=== PATIENT | male | born 1935 | race Caucasian/White ===

== ENCOUNTER 2017-08-27 10:28 | Emergency (ER) | payer MEDICARE, OTHER ==
[2017-08-27 11:10] LABS: BASOPHILS % (AUTO) 0.5 %; EOSINOPHILS # (AUTO) 0.1 10^3/uL (0.0-0.7); EOSINOPHILS % (AUTO) 1.6 %; HGB - HEMOGLOBIN 14.4 g/dL (14.0-18.0); LYMPHOCYTES # (AUTO) 1.5 10^3/uL (1.5-3.5); LYMPHOCYTES % (AUTO) 24.1 %; MEAN CORPUSCULAR HEMOGLOBIN 30.7 pg (27.0-31.0); MEAN CORPUSCULAR HGB CONC 34.6 g/dL (32.0-36.0); MEAN CORPUSCULAR VOLUME 88.7 fL (80.0-94.0); MEAN PLATELET VOLUME 8.3 fL (7.4-11.4); MONOCYTES # (AUTO) 0.6 10^3/uL (0.0-1.0); MONOCYTES % (AUTO) 9.5 %; NEUTROPHILS # (AUTO) 4.1 10^3/uL (1.5-6.6); NEUTROPHILS % (AUTO) 64.3 %; PLT - PLATELET COUNT 147 10^3/uL (130-450); RED BLOOD COUNT 4.69 10^6/uL (4.70-6.10); RED CELL DISTRIBUTION WIDTH 13.9 % (12.0-15.0); WHITE BLOOD COUNT 6.4 x10^3/uL (4.8-10.8)
[2017-08-27 11:20] LABS: ALBUMIN 4.5 g/dL (3.2-5.5); ALBUMIN/GLOBULIN RATIO 1.9 (1.0-2.2); ALKALINE PHOSPHATASE 57 IU/L (42-121); ALT ALANINE AMINOTRANSFERASE < 10 IU/L (10-60); AST ASPARTATE AMINOTRANSFERASE 33 IU/L (10-42); BUN - BLOOD UREA NITROGEN 23 mg/dL (6-20); CALCIUM 9.1 mg/dL (8.5-10.3); CARBON DIOXIDE - CO2 22 mmol/L (21-32); CHLORIDE 105 mmol/L (101-111); GFR - MDRD 72 (>89); GLUCOSE 110 mg/dL (70-100); LIPASE 13 U/L (22-51); SODIUM 136 mmol/L (135-145); TOTAL PROTEIN 6.9 g/dL (6.7-8.2)
--- NOTE | 2017-08-27 11:30 | CT Report ---
EXAM: CT HEAD EXAM DATE: 08/27/2017 11:18 AM. CLINICAL HISTORY: Slurred speech. COMPARISON: None. TECHNIQUE: Multiaxial CT images were obtained from the foramen magnum to the vertex. Reformats: Coron al. IV contrast: None. In accordance with CT protocol optimization, one or more of the following dose reduction techniques w ere utilized for this exam: automated exposure control, adjustment of mA and/or KV based on patient s ize, or use of iterative reconstructive technique. FINDINGS: Parenchyma: No intraparenchymal hemorrhage. No evidence of mass, midline shift, or CT findings of acu te infarction. 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 Focal low attenuation right paramedian olimpia 3:10 likely chronic microvascular in etiology. Nance-white differentiation is distinct. Diffuse chronic microangiopathic white matter changes are ev ident. Extraaxial Spaces: Normal for age. No subdural or epidural collections identified. Ventricles: The ventricles and cortical sulci are enlarged, consistent with age-related tissue loss. Sinuses and orbits: Imaged paranasal sinuses, orbits, and mastoids show no significant abnormality. Bones: No evidence of fracture or calvarial defect. Other: None. IMPRESSION: Generalized age-related and chronic vascular changes without evidence of acute intracrani al abnormality. [facility] Referring Provider Line: [phone] SITE ID: [id number]
--- NOTE | 2017-08-27 11:40 | ED Physician Documentation ---
PD HPI ALTERED MENTAL STATUS - Stated complaint Stated Complaint: SLURRED SPEECH - Chief complaint Chief Complaint: Neuro - History obtained from History obtained from: Patient, Family - History of Present Illness Timing - onset: Yesterday Timing - duration: Days (1) Timing - details: Gradual onset, Still present Quality / character: Other (dizziness and slurred speech) Associated symptoms: No: Fever, Headache, Stiff neck, Dyspnea, Cough, NVD, Urinary sx, General weakness, Focal weakness, Seizure activity, Syncope Contributing factors: Other (parkinsons). No: Anticoagulated Basline status: Alert and oriented X 3, Ambulatory, Independent Similar symptoms before: Has not had sx before Recently seen: Not recently seen - Additional information Additional information: 81-year-old male with a history of Parkinson's disease has returned from a vacation to [place] about 3 days ago. He developed some dizziness yesterday and his noted that his speech seemed a little slurred. She expected this to resolve and when she found today that he continued to have this dysarthric speech that she is brought him here to the emergency department. He does not have any lateralizing symptoms he does not feel weak. He does feel that he is having some trouble with his balance. He denies any illness associated with his trip to [place]. Review of Systems Constitutional: denies: Fever, Chills, Myalgias, Fatigue Eyes: denies: Decreased vision Ears: denies: Ear pain Nose: denies: Rhinorrhea / runny nose, Congestion Throat: denies: Sore throat Cardiac: denies: Chest pain / pressure, Palpitations Respiratory: denies: Dyspnea, Cough GI: denies: Abdominal Pain, Nausea, Vomiting : denies: Dysuria, Frequency Skin: denies: Rash Musculoskeletal: denies: Neck pain, Back pain, Extremity pain Neurologic: reports: Difficulty speaking. denies: Generalized weakness, Focal weakness, Numbness, Altered mental status, Headache, Head injury PD PAST MEDICAL HISTORY - Past Medical History Past Medical History: Yes Cardiovascular: None Respiratory: Asthma Neuro: Parkinson's Endocrine/Autoimmune: None GI: None : None HEENT: None Psych: None Musculoskeletal: None Derm: None, Other - Past Surgical History Past Surgical History: Yes General: Colonoscopy Ortho: Knee replacement HEENT: Cataracts - Present Medications Home Medications: Ambulatory Orders Medication Instructions Recorded Confirmed Aspirin 325 mg ORAL DAILY 08/22/14 01/16/15 Calcium Carbonate [Calcium] 500 mg ORAL DAILY 08/22/14 01/16/15 Carbidopa/Levodopa 25/100 [Sinemet 1 each PO QID 08/22/14 01/16/15 25 mg/100 mg] Pramipexole Di-HCl [Mirapex] 0.5 mg PO TID 08/22/14 01/16/15 Vit D3-Vit K/Berberine/Hops 2,000 tab ORAL DAILY 08/22/14 01/16/15 [Ostera Tablet] - Allergies Allergies/Adverse Reactions: Allergies Allergy/AdvReac Type Severity Reaction Status Date / Time No Known Drug Allergies Allergy Verified 08/27/17 10:43 - Social History Does the pt smoke?: No Smoking Status: Never smoker Does the pt have substance abuse?: No PD ED PE NORMAL - Vitals Vital signs reviewed: Yes (Hypertensive mild) - General General: Alert and oriented X 3, No acute distress, Well developed/nourished, Other - HEENT HEENT: Atraumatic, PERRL, EOMI, Ears normal, Other (Dry mucous membranes upper and lower plates) - Neck Neck: Supple, no meningeal sign, No bony TTP - Cardiac Cardiac: RRR, No murmur - Respiratory Respiratory: No respiratory distress, Clear bilaterally - Abdomen Abdomen: Soft, Non tender - Back Back: No CVA TTP, No spinal TTP - Derm Derm: Normal color, Warm and dry, No rash - Extremities Extremities: No deformity, No edema - Neuro Neuro: Alert and oriented X 3, 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, No motor deficit, No sensory deficit, Other (The speech is mildly dysarthric there is not word salad or word searching present.) Eye Opening: Spontaneous Motor: Obeys Commands Verbal: Oriented GCS Score: 15 - Psych Psych: Normal mood, Normal affect Results - Vitals Vitals: Vital Signs - 24 hr 08/27/17 08/27/17 08/27/17 10:36 11:30 12:00 Temperature 36.9 C Heart Rate 62 55 L 53 L Respiratory 16 16 18 Rate Blood Pressure 143/84 H 134/74 H 139/87 H O2 Saturation 95 97 97 08/27/17 08/27/17 08/27/17 12:30 13:02 13:45 Temperature Heart Rate 54 L 52 L 68 Respiratory 16 16 18 Rate Blood Pressure 156/73 H 159/80 H 175/77 H O2 Saturation 99 98 99 Oxygen O2 Source Room air - EKG (time done) 1040 Rate: Rate (enter#) (62) Rhythm: NSR QRS: LVH Ischemia: Q waves Compare to prior EKG: Old EKG unavailable Computer interpretation: Agree with computer - Labs Labs: Laboratory Tests 08/27/17 08/27/17 08/27/17 10:48 10:48 10:48 WBC 6.4 RBC 4.69 L Hgb 14.4 Hct 41.6 L MCV 88.7 MCH 30.7 MCHC 34.6 RDW 13.9 Plt Count 147 MPV 8.3 Neut # 4.1 Lymph # 1.5 Dickens # 0.6 Eos # 0.1 Baso # 0.0 Absolute Nucleated RBC 0.00 Nucleated RBC % 0.0 Sodium 136 Potassium 3.5 Chloride 105 Carbon Dioxide 22 Anion Gap 9.0 BUN 23 H Creatinine 1.0 Estimated GFR (MDRD) 72 L Glucose 110 H Calcium 9.1 Total Bilirubin 2.0 H AST 33 ALT < 10 L Alkaline Phosphatase 57 Troponin I < 0.04 Total Protein 6.9 Albumin 4.5 Globulin 2.4 Albumin/Globulin Ratio 1.9 Lipase 13 L - Rads (name of study) CT head without Radiology: Prelim report reviewed (Impression: Generalized age-related and chronic vascular changes without evidence of acute intracranial abnormality.), EMP read indepedently, See rad report Procedures - IVC sono (time) 1010 Bedside IVC sono: IVC measures (cm) (0.78), IVC collapsed c insp (cm) (complete) , Significant dehydration (est 3 liter deficit) 1340 Bedside IVC sono: IVC measures (cm) (1.2), IVC collapsed c insp (cm) (complete) , Dehydration (est 1liter deficit) PD MEDICAL DECISION MAKING - ED course Complexity details: reviewed old records, reviewed results, re-evaluated patient , considered differential, d/w patient, d/w family ED course: 81-year-old male history of Parkinson's is found to be significantly and symptomatically dehydrated and IV hydration is begun. He does have some mild dysarthric speech and I suspect this is related. He does not have any lateralizing findings otherwise. He is hydrated with 1 L of saline feels much improved and would like to go home. His inferior vena cava is interrogated again and he has marked improvement in his numbers now suggest a 1 L deficit. I have asked him to hydrate with an additional liter of Gatorade G2 today. His notes that his speech does seem to be almost back to normal. He will follow-up with his neurologist as previously planned next week. Departure - Departure Disposition: 01 Home, Self Care Clinical Impression: Dehydration Condition: Stable Instructions: ED Dehydration Follow-Up: COOPER FERNANDEZ [Primary Care Provider] - Discharge Date/Time: 08/27/17 13:55
[2017-08-27] MEDS ORDERED: SODIUM CHLORIDE 0.9% 1,000 ML IV ONE (12:11)
[2017-08-27 14:22] VITALS: BP 175/77
== END 2017-08-27 13:55 | disposition home or self-care (01) ==
LOC: ED 10:28
DX: E86.0 Dehydration (principal); G20 Parkinson's disease; J45.909 Unspecified asthma, uncomplicated; Z79.82 Long term (current) use of aspirin
CPT/HCPCS: 36415; 70450; 80053; 83690; 84484; 85025; 93005; 99284

== ENCOUNTER 2020-02-13 12:44 | Emergency (ER) | payer MEDICARE, OTHER ==
--- NOTE | 2020-02-13 13:33 | XRAY Report ---
PROCEDURE: Chest 1 View X-Ray INDICATIONS: Chest Pain TECHNIQUE: One view of the chest was acquired. COMPARISON: None. FINDINGS: Surgical changes and devices: None. Lungs and pleura: No pleural effusions or pneumothorax. Lungs are clear. Mediastinum: Mediastinal contours appear normal. Heart size is normal. Bones and chest wall: No suspicious bony lesions. Overlying soft tissues appear unremarkable. IMPRESSION: Chest without acute cardiopulmonary abnormalities. No focal airspace disease. No findings identified to explain patient's chest pain. Reviewed by: Phillip Espino MD on 02/13/2020 1:32 PM PDT Approved by: Phillip Espino MD on 02/13/2020 1:32 PM PDT Station ID: [id number]
[2020-02-13 13:39] LABS: BASOPHILS % (AUTO) 0.5 %; EOSINOPHILS # (AUTO) 0.1 10^3/uL (0.0-0.7); EOSINOPHILS % (AUTO) 0.8 %; HGB - HEMOGLOBIN 14.6 g/dL (14.0-18.0); LYMPHOCYTES # (AUTO) 1.3 10^3/uL (1.5-3.5); LYMPHOCYTES % (AUTO) 19.2 %; MEAN CORPUSCULAR HEMOGLOBIN 31.5 pg (27.0-31.0); MEAN CORPUSCULAR HGB CONC 34.5 g/dL (32.0-36.0); MEAN CORPUSCULAR VOLUME 91.4 fL (80.0-94.0); MEAN PLATELET VOLUME 9.8 fL (7.4-11.4); MONOCYTES # (AUTO) 0.5 10^3/uL (0.0-1.0); MONOCYTES % (AUTO) 7.1 %; NEUTROPHILS # (AUTO) 4.8 10^3/uL (1.5-6.6); NEUTROPHILS % (AUTO) 72.1 %; PLT - PLATELET COUNT 145 10^3/uL (130-450); RED BLOOD COUNT 4.63 10^6/uL (4.70-6.10); RED CELL DISTRIBUTION WIDTH 12.8 % (12.0-15.0); WHITE BLOOD COUNT 6.6 x10^3/uL (4.8-10.8)
--- NOTE | 2020-02-13 13:48 | ED Physician Documentation ---
History of Present Illness - Stated complaint Stated Complaint: DIZZY, UPSET STOMACH - Chief complaint Chief Complaint: Neuro - History obtained from History obtained from: Patient, Family - Additonal information Additional information: 84-year-old male presents to the emergency department for evaluation of dizziness and nausea. He reports that this morning when he woke up and sat up in bed he began to feel dizzy. The dizziness has persisted anytime he looks up moving objects and was especially worse when he laid supine. he is able to make the sensation go away if he fixates on an object. He denies that he has ever had similar. He denies any headache focal weakness slurred speech or droopy face. He denies any diplopia, tinnitus or cough, cold or congestion denies any syncope. he did work outside in the year yesterday He does have a history of Parkinson's disorder. He is able to walk with a mildly shuffled gait but does not use any assistive devices. He has not had any falls or trauma. He does not take anticoagulation. He denies chest pain or dyspnea, no abdominal pain, dysuria, urgency, or frequency. He denies any previous history of LA or CVA/TIA Review of Systems Constitutional: denies: Fever, Chills Eyes: reports: Other (wears corrective lenses). denies: Loss of vision, Decreased vision, Photophobia, Discharge Nose: denies: Congestion, Epistaxis Cardiac: reports: Chest pain / pressure, Palpitations Respiratory: denies: Dyspnea, Cough GI: denies: Abdominal Pain, Abdominal Swelling, Constipation, Diarrhea, Hematemesis, Bloody / black stool : denies: Dysuria, Frequency, Hesitancy, Unable to Void Skin: denies: Rash, Lesions Musculoskeletal: denies: Neck pain, Back pain Neurologic: reports: Other (parkinsons; mild tremor; shuffled gait). denies: Generalized weakness, Focal weakness, Numbness, Difficulty speaking, Near syncope, Syncope, Seizure, Confused Psychiatric: denies: Depressed, Suicidal PD PAST MEDICAL HISTORY - Past Medical History Cardiovascular: None Respiratory: Asthma Neuro: Parkinson's Endocrine/Autoimmune: None GI: None : None HEENT: None Psych: None Musculoskeletal: None Derm: None, Other - Past Surgical History Past Surgical History: Yes General: Colonoscopy Ortho: Knee replacement HEENT: Cataracts - Present Medications Home Medications: Ambulatory Orders Medication Instructions Recorded Confirmed Calcium Carbonate [Calcium] 500 mg ORAL DAILY 08/22/14 02/13/20 Carbidopa/Levodopa 25/100 [Sinemet 1 each PO QID 08/22/14 02/13/20 25 mg/100 mg] Vit D3-Vit K/Berberine/Hops 2,000 tab ORAL DAILY 08/22/14 02/13/20 [Ostera Tablet] Fluticasone [Flonase] 2 sprays JOHN DAILY 02/13/20 02/13/20 Magnesium Oxide 500 mg PO DAILY 02/13/20 02/13/20 Meclizine [Antivert] 25 mg PO BID PRN #30 tablet 02/13/20 Pramipexole Di-HCl [Pramipexole ER] 1 tab ORAL DAILY PM 02/13/20 02/13/20 - Allergies Allergies/Adverse Reactions: Allergies Allergy/AdvReac Type Severity Reaction Status Date / Time No Known Drug Allergies Allergy Verified 02/13/20 13:21 - Social History Does the pt smoke?: No Smoking Status: Never smoker Does the pt have substance abuse?: No PD ED PE EXPANDED - General General: Alert, No acute distress, Well developed/nourished - HEENT HEENT: Atraumatic, PERRL, Other (mild lateral nystagmus with extreme right head turn). No: Head injury, Swollen tonsils - Eyes Eyes: PERRL, Normal accommodation, EOMI - Neck Neck: Supple w/out meningeal sx. No: Adenopathy - Cardiac Cardiac: Regular Rate, Regular Rhythm, Radial strong equal, Femoral strong equal, Pedal strong equal, Cap refill < 2 sec, Prolonged cap refill. No: Murmur Present - Respiratory Respiratory: Clear to ausultation marisol. No: Distress, Labored - Abdomen Abdomen: Normal Bowel sounds. No: Tender to palpation - Extremities Extremities: Normal. No: Deformity, Tenderness - Neuro Neuro: Alert and Oriented X 3, Normal Sensation, Normal Speech, CNII-XII intact, Nystagmus, Normal finger nose, Normal speech, Other (+ barbi tolentino pike rith nystagmus and dizziness noted with head turn to the right; mild nustagmus when returns to sitting position). No: Normal gait (parkinsons; shuffled gait) - GCS Eye Opening: Spontaneous Motor: Obeys Commands Verbal: Oriented Total: 15 Results - Vitals Vitals: Vital Signs - 24 hr 02/13/20 02/13/20 13:20 13:40 Temperature 36.6 C Heart Rate 68 67 Respiratory 18 20 Rate Blood Pressure 164/77 H 139/79 H O2 Saturation 98 98 Oxygen O2 Source Room air - Labs Labs: Laboratory Tests 02/13/20 02/13/20 02/13/20 13:32 13:32 13:32 WBC 6.6 RBC 4.63 L Hgb 14.6 Hct 42.3 MCV 91.4 MCH 31.5 H MCHC 34.5 RDW 12.8 Plt Count 145 MPV 9.8 Neut # (Auto) 4.8 Lymph # (Auto) 1.3 L Lake # (Auto) 0.5 Eos # (Auto) 0.1 Baso # (Auto) 0.0 Absolute Nucleated RBC 0.00 Nucleated RBC % 0.0 Sodium 136 Potassium 3.7 Chloride 101 Carbon Dioxide 26 Anion Gap 9.0 BUN 21 H Creatinine 1.0 Estimated GFR (MDRD) 71 L Glucose 129 H Calcium 9.2 Total Bilirubin 1.6 H AST 25 ALT < 10 L Alkaline Phosphatase 60 Troponin I High Sens 4.6 Total Protein 7.0 Albumin 4.4 Globulin 2.6 Albumin/Globulin Ratio 1.7 Lipase 22 Urine Color Urine Clarity Urine pH Ur Specific [place] Urine Protein Urine Glucose (UA) Urine Ketones Urine Occult Blood Urine Nitrite Urine Bilirubin Urine Urobilinogen Ur Leukocyte Esterase Ur Microscopic Review Urine Culture Comments 02/13/20 13:55 WBC RBC Hgb Hct MCV MCH MCHC RDW Plt Count MPV Neut # (Auto) Lymph # (Auto) Lake # (Auto) Eos # (Auto) Baso # (Auto) Absolute Nucleated RBC Nucleated RBC % Sodium Potassium Chloride Carbon Dioxide Anion Gap BUN Creatinine Estimated GFR (MDRD) Glucose Calcium Total Bilirubin AST ALT Alkaline Phosphatase Troponin I High Sens Total Protein Albumin Globulin Albumin/Globulin Ratio Lipase Urine Color YELLOW Urine Clarity CLEAR Urine pH 6.0 Ur Specific [place] 1.020 Urine Protein NEGATIVE Urine Glucose (UA) NEGATIVE Urine Ketones NEGATIVE Urine Occult Blood NEGATIVE Urine Nitrite NEGATIVE Urine Bilirubin NEGATIVE Urine Urobilinogen 0.2 (NORMAL) Ur Leukocyte Esterase NEGATIVE Ur Microscopic Review NOT INDICATED Urine Culture Comments NOT INDICATED PD MEDICAL DECISION MAKING - ED course Complexity details: reviewed old records, reviewed results, re-evaluated patient, d/w patient, d/w family ED course: 84-year-old male presented to the emergency department with chief complaint of vertigo and nausea that he noted this morning when he arose from bed. His vertigo was worse when he laid supine or turned his head. On exam he did have a positive Barbi-Hallpike especially with positioning on the right side with lateral nystagmus noted. Patient was given meclizine and 1 L of IV fluids in the emergency department did have good relief of his symptoms. I was no longer able to induce the vertigo with repeat barbi tolentino pike following meclizine and fluids. His cerebellar exam was normal otherwise taking into account prakinsons and shuffled gait. My suspicion for central etiology for vertigo is low. He had no focal neuro deficits ECG is non ischemic. negative troponin. no c/o chest pain or dyspnea. No syncope labs showed mild BUN elevation likely dehydrated attributed to working outside yeterday. improved following IVF UA showed no signs of infection discussed that likely etiology of vertigo is mild dehydration and peripheral mohinder ology. advised to do the summer maneuver at home. Encouraged to drink 1 liter of gatorade G2. advised close f/u with pcp. Return to the ED for focal weakness, slurred speech, altered gait or any syncope/chest pain Departure - Departure Disposition: 01 Home, Self Care Clinical Impression: Vertigo, Dehydration symptoms Condition: Stable Record reviewed to determine appropriate education?: Yes Instructions: Vertigo Paroxysmal Positional Follow-Up: MERCEDES BRYANT MD [Primary Care Provider] - Prescriptions: Meclizine [Antivert] 25 mg PO BID PRN #30 tablet PRN Reason: dizzy Comments: Kris, I think the cause of your dizziness is most likely mild dehydration and loose crystals in your inner ear. Yoru EKG, CXR, urine, and labs look okay otherwise. Please practice the head positioning at home as show to you in the ED today. This will help reposition the loose crystals in your ears. You are a little dehydrated therefore I would like you to increase your intake of water and fluids at home. Mild dehydration can certainly contribute to dizziness. If at any point you find to the you have slurred speech feel that he cannot speak or walk normally or feel that your symptoms are not well managed and please return to the emergency department for a second look
[2020-02-13 13:52] LABS: ALBUMIN 4.4 g/dL (3.2-5.5); ALBUMIN/GLOBULIN RATIO 1.7 (1.0-2.2); ALKALINE PHOSPHATASE 60 IU/L (42-121); ALT ALANINE AMINOTRANSFERASE < 10 IU/L (10-60); AST ASPARTATE AMINOTRANSFERASE 25 IU/L (10-42); BILIRUBIN,TOTAL 1.6 mg/dL (0.2-1.0); BUN - BLOOD UREA NITROGEN 21 mg/dL (6-20); CALCIUM 9.2 mg/dL (8.5-10.3); CARBON DIOXIDE - CO2 26 mmol/L (21-32); CHLORIDE 101 mmol/L (101-111); GLUCOSE 129 mg/dL (70-100); LIPASE 22 U/L (22-51); SODIUM 136 mmol/L (135-145)
[2020-02-13] MEDS: MECLIZINE 12.5 MG TABLET PO STA (13:56)
[2020-02-13] MEDS: SODIUM CHLORIDE 0.9% 1,000 ML IV STA (13:56)
[2020-02-13 14:04] LABS: BILIRUBIN,URINE NEGATIVE (NEGATIVE); GLUCOSE, URINE (UA) NEGATIVE (NEGATIVE); KETONES,URINE (UA) NEGATIVE (NEGATIVE); LEUKOCYTE ESTERASE, URINE NEGATIVE (NEGATIVE); NITRITE,URINE NEGATIVE (NEGATIVE); OCCULT BLOOD,URINE NEGATIVE (NEGATIVE); PROTEIN,URINE NEGATIVE (NEGATIVE); UROBILINOGEN,URINE 0.2 (NORMAL) E.U./dL (NORMAL)
[2020-02-13 14:11] LABS: CLARITY,URINE CLEAR (CLEAR)
[2020-02-13 15:00] VITALS: BP 162/73
== END 2020-02-13 15:18 | disposition home or self-care (01) ==
LOC: ED 12:44
DX: R42 Dizziness and giddiness (principal); E86.0 Dehydration; R11.0 Nausea; G20 Parkinson's disease
CPT/HCPCS: 36415; 71045; 80053; 81003; 83690; 84484; 85025; 93005; 96360; 99284; A9270; 81001; 87086

== ENCOUNTER 2021-11-01 20:08 | Emergency (ER) | payer MEDICARE, OTHER ==
--- NOTE | 2021-11-01 21:29 | ED Physician Documentation ---
PD HPI BACK PAIN - Stated complaint Stated Complaint: FALL/BACK PAIN - Chief complaint Chief Complaint: Trauma Ch/Bk - History obtained from History obtained from: Patient - History of Present Illness Timing - onset: Enter time (18:30), Today Timing - details: Abrupt onset Pain level now: 5 Location: Lower Quality: Pain Contributing factors: No: Anticoagulated Similar symptoms before: Has not had sx before Recently seen: Not recently seen - Additional information Additional information: patient slipped and fell in the shower tonight, "landed on my butt" (per patient), c/o sudden onset low back pain "across middle of my back". Denies head injury, denies LOC. Review of Systems Cardiac: reports: Reviewed and negative Respiratory: reports: Reviewed and negative GI: reports: Reviewed and negative Skin: reports: Reviewed and negative Musculoskeletal: reports: Back pain. denies: Neck pain, Joint pain, Joint swelling Neurologic: denies: Generalized weakness, Focal weakness, Numbness, Confused, Altered mental status, Headache, Head injury, LOC PD PAST MEDICAL HISTORY - Past Medical History Past Medical History: Yes Cardiovascular: None Respiratory: Asthma Neuro: Parkinson's Endocrine/Autoimmune: None GI: None : None HEENT: None Psych: None Musculoskeletal: None Derm: None, Other - Past Surgical History Past Surgical History: Yes General: Colonoscopy Ortho: Knee replacement HEENT: Cataracts - Present Medications Home Medications: Ambulatory Orders Medication Instructions Recorded Confirmed Calcium Carbonate [Calcium] 500 mg ORAL DAILY 08/22/14 11/01/21 Carbidopa/Levodopa 25/100 [Sinemet 1 each PO QID 08/22/14 11/01/21 25 mg/100 mg] Vit D3-Vit K/Berberine/Hops 2,000 tab ORAL DAILY 08/22/14 11/01/21 [Ostera Tablet] Fluticasone [Flonase] 2 sprays JOHN DAILY 02/13/20 11/01/21 Magnesium Oxide 500 mg PO DAILY 02/13/20 11/01/21 Meclizine [Antivert] 25 mg PO BID PRN #30 tablet 02/13/20 11/01/21 Pramipexole Di-HCl [Pramipexole ER] 1 tab ORAL DAILY PM 02/13/20 11/01/21 Rivastigmine Tartrate 1 cap PO QID 11/01/21 11/01/21 [Rivastigmine] - Allergies Allergies/Adverse Reactions: Allergies Allergy/AdvReac Type Severity Reaction Status Date / Time No Known Drug Allergies Allergy Verified 11/01/21 20:12 - Social History Does the pt smoke?: No Smoking Status: Never smoker Does the pt drink ETOH?: Yes Does the pt have substance abuse?: No - Immunizations Immunizations are current?: Yes - POLST Patient has POLST: No PD ED PE NORMAL - Vitals Vital signs reviewed: Yes - Cardiac Cardiac: RRR, No murmur - Abdomen Abdomen: Soft, Non tender - Back Back: Other (mild TTP across mid/lower lumbar region without crepitus or palpable/visible deformity) - Extremities Extremities: No edema - Neuro Neuro: Alert and oriented X 3, 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 There is a T12 compression with 30% loss of height on the lumbar xrays. He has pain and tenderness in this area but no neurologic c/o nor findings (such as leg weakness, numbness), and is able to slowly ambulate without assistance. Given PO tylenol for pain; does not appear to be in obvious painful distress to the point of warranting narcotic/opiate analgesia, and such medication would also carry risk of unsteadiness in this age group which could lead to subsequent fall(s) and worse injury. Departure - Departure Disposition: 01 Home, Self Care Clinical Impression: T12 compression fracture Qualifiers: Encounter type: initial encounter Qualified Code(s): S22.080A - Wedge compression fracture of T11-T12 vertebra, initial encounter for closed fracture Fall Qualifiers: Encounter type: initial encounter Qualified Code(s): W19.XXXA - Unspecified fall, initial encounter Condition: Good Instructions: ED Fx Comp Vertebral Follow-Up: MERCEDES BRYANT MD [Primary Care Provider] - Comments: As we discussed, there are no apparent fractures on the pelvis xray. Your lower back xrays show a fracture of T12 (your twelfth thoracic vertebra of your back); this might have been caused by the fall today, but without previous xrays or CT to compare to (none available on my computer here), it cannot be determined whether this might have been present before today (in other words, the finding might be from a previous injury and unrelated to today's fall). Follow up with your primary care provider within 1 week for reevaluation. Discharge Date/Time: 11/02/21 00:08
[2021-11-01] MEDS ORDERED: ACETAMINOPHEN 325 MG TABLET PO STA (21:42)
--- NOTE | 2021-11-01 23:00 | XRAY Report ---
PROCEDURE: Pelvis 1 View INDICATIONS: fall, low back pain TECHNIQUE: 1 view(s) of the pelvis acquired. COMPARISON: Correlation is made with the accompanying lumbar radiograph, 11/01/2021 FINDINGS: Bones: No fractures or dislocations. No suspicious bony lesions. Degenerative changes are seen, in cluding involving the visualized lower lumbar spine. Soft tissues: Visualized bowel gas pattern is normal. No suspicious soft tissue calcifications. IMPRESSION: No displaced fracture can be seen on this single view of the pelvis. Please correlate with focal tenderness. If there is point tenderness (or other clinical concern for a fracture not seen on these plain films) then please consider a dedicated CT study or a short term fo llow up plain film series for further evaluation. Reviewed by: Raf Ulloa MD on 11/01/2021 9:59 PM MARINA Approved by: Raf Ulloa MD on 11/01/2021 9:59 PM MARINA Station ID: [id number]
--- NOTE | 2021-11-01 23:03 | XRAY Report ---
PROCEDURE: Lumbar Spine 2 View INDICATIONS: fall, low back pain TECHNIQUE: 2 views of the lumbar spine were acquired. COMPARISON: Correlation is made with the accompanying pelvis plain film, 11/01/2021 FINDINGS: Bones: 5 [id number] vertebrae are present. Mild dextroconvex scoliotic curvature is seen. No significant AP alignment abnormality can be seen. There is a T12 fracture seen involving the superior endplate, with approximately 30% loss of height. There is mild disc space narrowing seen at L3-L4, with moderate disc space narrowing at L4-5 and L5-S 1. Facet arthropathy is seen, which is most prominent inferiorly. No suspicious bony lesions. Soft tissues: Overlying bowel gas pattern is normal. No suspicious soft tissue calcifications. Ath erosclerotic calcification is seen. IMPRESSION: T12 fracture, with 30% loss of height. Please correlate with focal tenderness. If it would be helpful for clinical management decision making, please consider a dedicated CT throug h the region for further evaluation. Lumbar spine degenerative changes are seen, which are worst inferiorly. Reviewed by: Raf Ulloa MD on 11/01/2021 10:01 PM MARINA Approved by: Raf Ulloa MD on 11/01/2021 10:01 PM MARINA Station ID: [id number]
[2021-11-02 00:09] VITALS: BP 184/78
== END 2021-11-02 00:08 | disposition home or self-care (01) ==
LOC: ED 20:08
DX: S22.080A Wedge compression fracture of T11-T12 vertebra, initial encounter for closed fracture (principal); W18.2XXA Fall in (into) shower or empty bathtub, initial encounter; Y93.F1 Activity, caregiving, bathing
CPT/HCPCS: 72100; 72170; 99282; 99283; A9270

== ENCOUNTER 2022-02-22 11:21 | Emergency (ER) | payer MEDICARE, OTHER ==
[2022-02-22 11:32] VITALS: BP 143/61
--- NOTE | 2022-02-22 11:55 | XRAY Report ---
PROCEDURE: Elbow 3 View RT INDICATIONS: Trauma TECHNIQUE: 3 views of the elbow were acquired. COMPARISON: None. FINDINGS: Bones: No acute fractures or dislocations. No suspicious bony lesions. Soft tissues: No elbow joint effusion. No suspicious soft tissue calcifications. IMPRESSION: No acute osseous abnormality. If there is clinical concern or persistent symptoms, additional imaging such as repeat radiographs or advanced imaging (e.g. CT, MRI) may be helpful for further evaluation. Reviewed by: Sergio Rees MD on 02/22/2022 10:54 AM MARINA Approved by: Sergio Rees MD on 02/22/2022 10:54 AM MARINA Station ID: [id number]
--- NOTE | 2022-02-22 12:30 | ED Physician Documentation ---
PD HPI UPPER EXT INJURY - Stated complaint Stated Complaint: R ELBOW LAC - Chief complaint Chief Complaint: Laceration - History obtained from History obtained from: Patient, Family - Additonal information Additional information: 86-year-old gentleman presents with his for the evaluation of a skin tear on the right elbow that has had persistent bleeding. 3 nights ago he was walking too fast and hit his elbow on a door jam and he has a skin tear on his right elbow. He also loosened the nail of the left fourth finger. Anytime he moves the right elbow it bleeds. He is up-to-date on tetanus. Review of Systems Constitutional: reports: Reviewed and negative Eyes: reports: Reviewed and negative Ears: reports: Reviewed and negative Nose: reports: Reviewed and negative PD PAST MEDICAL HISTORY - Past Medical History Cardiovascular: None Respiratory: Asthma Neuro: Parkinson's Endocrine/Autoimmune: None GI: None : None HEENT: None Psych: None Musculoskeletal: None Derm: None, Other - Past Surgical History Past Surgical History: Yes General: Colonoscopy Ortho: Knee replacement HEENT: Cataracts - Present Medications Home Medications: Ambulatory Orders Medication Instructions Recorded Confirmed Calcium Carbonate [Calcium] 500 mg ORAL DAILY 08/22/14 11/01/21 Carbidopa/Levodopa 25/100 [Sinemet 1 each PO QID 08/22/14 11/01/21 25 mg/100 mg] Vit D3-Vit K/Berberine/Hops 2,000 tab ORAL DAILY 08/22/14 11/01/21 [Ostera Tablet] Fluticasone [Flonase] 2 sprays JOHN DAILY 02/13/20 11/01/21 Magnesium Oxide 500 mg PO DAILY 02/13/20 11/01/21 Meclizine [Antivert] 25 mg PO BID PRN #30 tablet 02/13/20 11/01/21 Pramipexole Di-HCl [Pramipexole ER] 1 tab ORAL DAILY PM 02/13/20 11/01/21 Rivastigmine Tartrate 1 cap PO QID 11/01/21 11/01/21 [Rivastigmine] - Allergies Allergies/Adverse Reactions: Allergies Allergy/AdvReac Type Severity Reaction Status Date / Time adhesive Allergy Rash Verified 02/22/22 11:32 - Social History Does the pt smoke?: No Smoking Status: Never smoker Does the pt drink ETOH?: Yes Does the pt have substance abuse?: No - Immunizations Immunizations are current?: Yes - POLST Patient has POLST: No PD ED PE NORMAL - Vitals Vital signs reviewed: Yes - General General: Alert and oriented X 3, No acute distress - HEENT HEENT: PERRL, EOMI - Neck Neck: Supple, no meningeal sign, No bony TTP - Extremities Extremities: Other (There is no tenderness of the right elbow. There is a large but shallow skin tear measuring about 3 cm with some heaped up skin at the edge that is nonviable. The left fourth finger has a slightly loose nail but no bony tenderness.) - Neuro Neuro: Alert and oriented X 3, Normal speech Results - Vitals Vitals: Vital Signs - 24 hr 02/22/22 11:27 Temperature 36.0 C L Heart Rate 62 Respiratory 20 Rate Blood Pressure 143/61 H O2 Saturation 98 Oxygen O2 Source Room air - Rads (name of study) Three-view x-ray right elbow Radiology: EMP read contemporaneously (Normal) Procedures - Laceration (location) Right elbow Length in cm: 3 Wound type: Superficial Wound preparation: Irrigated copiously NS, Debrided moderately (There was heaped up skin at the edge that was devitalized and debrided sharply.) Skin layer closure: Dermabond Other: Patient tolerated well, No complications, Neurovascular intact, Tetanus UTD Departure - Departure Disposition: 01 Home, Self Care Clinical Impression: Skin tear of elbow without complication Qualifiers: Encounter type: initial encounter Laterality: right Qualified Code(s): S51.011A - Laceration without foreign body of right elbow, initial encounter Condition: Good Record reviewed to determine appropriate education?: Yes Instructions: ED Laceration Ext Skin Glue Comments: You can keep the current dressing on for a day. After that you can wash with soap and water and just leave it open to air. Return for new or worsening symptoms. Follow-up with your doctor in a week for wound check.
== END 2022-02-22 12:37 | disposition home or self-care (01) ==
LOC: ED 11:21
DX: S51.011A Laceration without foreign body of right elbow, initial encounter (principal); W22.09XA Striking against other stationary object, initial encounter; Y93.01 Activity, walking, marching and hiking; Y92.009 Unspecified place in unspecified non-institutional (private) residence as the place of occurrence of the external cause
CPT/HCPCS: 12002; 99283

== ENCOUNTER 2023-07-01 15:42 | Outpatient (CLI) | payer MEDICARE, OTHER | END 2023-07-01 23:59 | disposition short-term general hospital (02) | LOC: EMS 15:42 | DX: R41.0 Disorientation, unspecified (principal); R35.0 Frequency of micturition; R32 Unspecified urinary incontinence | CPT/HCPCS: A0425; A0429 ==

== ENCOUNTER 2023-08-31 17:57 | Outpatient (CLI) | payer MEDICARE, OTHER | END 2023-08-31 23:59 | disposition EMS.NT | LOC: EMS 17:57 | DX: Z03.89 Encounter for observation for other suspected diseases and conditions ruled out (principal) ==

== ENCOUNTER 2023-09-01 12:34 | Emergency (ER) | payer MEDICARE, OTHER ==
[2023-09-01 13:09] LABS: BASOPHILS % (AUTO) 0.3 %; EOSINOPHILS # (AUTO) 0.2 10^3/uL (0.0-0.7); EOSINOPHILS % (AUTO) 2.6 %; HCT - HEMATOCRIT 40.3 % (42.0-52.0); LYMPHOCYTES # (AUTO) 1.3 10^3/uL (1.5-3.5); LYMPHOCYTES % (AUTO) 20.1 %; MEAN CORPUSCULAR HGB CONC 32.3 g/dL (32.0-36.0); MEAN CORPUSCULAR VOLUME 92.9 fL (80.0-94.0); MEAN PLATELET VOLUME 10.4 fL (7.4-11.4); MONOCYTES # (AUTO) 0.5 10^3/uL (0.0-1.0); MONOCYTES % (AUTO) 7.7 %; NEUTROPHILS # (AUTO) 4.3 10^3/uL (1.5-6.6); NEUTROPHILS % (AUTO) 69.1 %; PLT - PLATELET COUNT 139 10^3/uL (130-450); RED BLOOD COUNT 4.34 10^6/uL (4.70-6.10); RED CELL DISTRIBUTION WIDTH 13.2 % (12.0-15.0); WHITE BLOOD COUNT 6.2 x10^3/uL (4.8-10.8)
[2023-09-01 13:22] LABS: ALBUMIN 4.3 g/dL (3.2-5.5); ALBUMIN/GLOBULIN RATIO 2.2 (1.0-2.2); BILIRUBIN,TOTAL 2.7 mg/dL (0.2-1.0); CALCIUM 9.4 mg/dL (8.5-10.3); MAGNESIUM 1.9 mg/dL (1.7-2.3); POTASSIUM 3.9 mmol/L (3.5-4.5); TOTAL PROTEIN 6.3 g/dL (6.4-8.9)
--- NOTE | 2023-09-01 13:44 | ED Physician Documentation ---
PD HPI SYNCOPE - Stated complaint Stated Complaint: FALLING - Chief complaint Chief Complaint: Neuro - Additional information Additional information: 87-year-old male very poor historian with history of Parkinson's and known memory loss presents emergency department with his for 2 episodes of syncope happening yesterday. Patient says he is not sure what happened his handed him a piece of bread and then he said he ended up on the floor. He is unable to tell me if he hit his head or not and so is his . He said that he tried to call his primary care provider today to get in with them further evaluation of this but he was unable to do so they told him to come to the emergency department. He denies any chest pain any shortness of breath he says that this has happened to him in the past but he is unable to provide any additional history other than that. PD PAST MEDICAL HISTORY - Past Medical History Past Medical History: Yes Cardiovascular: None Respiratory: Asthma Neuro: Parkinson's Endocrine/Autoimmune: None GI: None : None HEENT: None Psych: None Musculoskeletal: None Derm: None, Other - Past Surgical History Past Surgical History: Yes General: Colonoscopy Ortho: Knee replacement HEENT: Cataracts - Present Medications Home Medications: Ambulatory Orders Medication Instructions Recorded Confirmed Calcium Carbonate [Calcium] 500 mg ORAL DAILY 08/22/14 11/01/21 Carbidopa/Levodopa 25/100 [Sinemet 1 each PO QID 08/22/14 11/01/21 25 mg/100 mg] Vit D3-Vit K/Berberine/Hops 2,000 tab ORAL DAILY 08/22/14 11/01/21 [Ostera Tablet] Fluticasone [Flonase] 2 sprays JOHN DAILY 02/13/20 11/01/21 Magnesium Oxide 500 mg PO DAILY 02/13/20 11/01/21 Meclizine [Antivert] 25 mg PO BID PRN #30 tablet 02/13/20 11/01/21 Pramipexole Di-HCl [Pramipexole ER] 1 tab ORAL DAILY PM 02/13/20 11/01/21 Rivastigmine Tartrate 1 cap PO QID 11/01/21 11/01/21 [Rivastigmine] Clopidogrel [Plavix] 75 mg PO DAILY 09/01/23 - Allergies Allergies/Adverse Reactions: Allergies Allergy/AdvReac Type Severity Reaction Status Date / Time adhesive Allergy Rash Verified 09/01/23 12:54 - Social History Does the pt smoke?: No Smoking Status: Never smoker Does the pt drink ETOH?: Yes Does the pt have substance abuse?: No - Immunizations Immunizations are current?: Yes - POLST Patient has POLST: No PD ED PE NORMAL - Vitals Vital signs reviewed: Yes - General General: Alert and oriented X 3, No acute distress, Well developed/nourished - HEENT HEENT: Atraumatic, PERRL, EOMI - Neck Neck: No JVD - Cardiac Cardiac: RRR, No murmur, No gallop, Strong equal pulses - Respiratory Respiratory: No respiratory distress, Clear bilaterally - Abdomen Abdomen: Normal bowel sounds, Soft, Non tender, No organomegaly - Derm Derm: Normal color, Warm and dry, No rash - Extremities Extremities: No edema - Neuro Neuro: Alert and oriented X 3, composite laminator 2-12 intact, No motor deficit, No sensory deficit, Normal speech Eye Opening: Spontaneous Motor: Obeys Commands Verbal: Oriented GCS Score: 15 - Psych Psych: Normal mood, Other (Flat, delayed affect) Results - Vitals Vitals: Vital Signs - 24 hr 09/01/23 09/01/23 09/01/23 12:45 12:54 13:02 Temperature 36.2 C L Heart Rate 65 58 L 64 Heart Rate [ Sitting] Heart Rate [ Standing] Heart Rate [ Supine] Respiratory 16 16 20 Rate Blood Pressure 110/51 L 133/61 H 116/57 L Blood Pressure [Sitting] Blood Pressure [Standing] Blood Pressure [Supine] O2 Saturation 100 98 98 09/01/23 09/01/23 09/01/23 13:07 14:15 14:25 Temperature Heart Rate 58 L Heart Rate [ 64 Sitting] Heart Rate [ 67 Standing] Heart Rate [ 55 L Supine] Respiratory 17 18 Rate Blood Pressure 116/57 L 133/61 H Blood Pressure 127/65 [Sitting] Blood Pressure 103/57 L [Standing] Blood Pressure 140/58 H [Supine] O2 Saturation 97 100 09/01/23 15:09 Temperature Heart Rate 56 L Heart Rate [ Sitting] Heart Rate [ Standing] Heart Rate [ Supine] Respiratory 16 Rate Blood Pressure 138/56 H Blood Pressure [Sitting] Blood Pressure [Standing] Blood Pressure [Supine] O2 Saturation 100 Oxygen O2 Source Room air - EKG (time done) 1256 EKG releavant findings:: EKG personally interpreted by author of this note. Relevant findings are: Rate: Rate (enter#) (60) Rhythm: NSR Cantil: LAD Intervals: Normal CT QRS: Normal Ischemia: Normal ST segments Computer interpretation: Agree with computer - Labs Labs: Laboratory Tests 09/01/23 09/01/23 09/01/23 13:00 13:00 13:00 WBC 6.2 RBC 4.34 L Hgb 13.0 L Hct 40.3 L MCV 92.9 MCH 30.0 MCHC 32.3 RDW 13.2 Plt Count 139 MPV 10.4 Neut # (Auto) 4.3 Lymph # (Auto) 1.3 L [place] # (Auto) 0.5 Eos # (Auto) 0.2 Baso # (Auto) 0.0 Absolute Nucleated RBC 0.00 Nucleated RBC % 0.0 Sodium 138 Potassium 3.9 Chloride 105 Carbon Dioxide 27 Anion Gap 6.0 BUN 24 H Creatinine 1.0 Estimated GFR (MDRD) 71 L Glucose 120 H POC Whole Bld Glucose Calcium 9.4 Magnesium 1.9 Total Bilirubin 2.7 H AST 24 ALT 9 L Alkaline Phosphatase 61 Troponin I High Sens 5.2 Total Protein 6.3 L Albumin 4.3 Globulin 2.0 L Albumin/Globulin Ratio 2.2 09/01/23 13:02 WBC RBC Hgb Hct MCV MCH MCHC RDW Plt Count MPV Neut # (Auto) Lymph # (Auto) [place] # (Auto) Eos # (Auto) Baso # (Auto) Absolute Nucleated RBC Nucleated RBC % Sodium Potassium Chloride Carbon Dioxide Anion Gap BUN Creatinine Estimated GFR (MDRD) Glucose POC Whole Bld Glucose 127 H Calcium Magnesium Total Bilirubin AST ALT Alkaline Phosphatase Troponin I High Sens Total Protein Albumin Globulin Albumin/Globulin Ratio - Rads (name of study) Head CT without Relevant Findings:: Final report received, EMP independent interpretation of test, Other (No acute intracranial abnormalities. Age-related volume loss mild white matter small vessel ischemic changes) Cervical CT without Relevant Findings:: Final report received, EMP independent interpretation of test, Other (No acute cervical spinal fractures or dislocations, degenerative disc disease C5-C6 and C7) PD Medical Decision Making - ED course ED course: 87-year-old gentleman presents emergency department for 2 episodes of syncope that occured yesterday. Labs are complete mild anemia, hemoglobin 13, hematocrit 40.3 similar in comparison to previous labs that he has had drawn. CMP shows slightly elevated BUN at 24, GFR 71, creatinine 1.0. Mild bilirubinemia, 2.7. Head and neck CT were also completed for further evaluation and I am not seeing any acute abnormalities or findings at this time. Because patient 2 episodes of syncope and he is slightly orthostatic he was offered hospitalization for observation for further evaluation of the syncopal episodes. Patient and his kindly declined and said that they just wanted to make sure that he was not having a brain bleed would like to follow-up with his primary care provider outpatient. Patient also newly reports that he recently had a TIA about 2 to 3 weeks ago and was started on aspirin, Plavix, add of a statin and wondering if these medications could be causing the syncopal episodes. I informed the patient that given his recent TIA I would not suggest going off of these medications but to follow-up with his primary care provider to make these decisions together. Patient was told if he changes his mind and would like to come back to the emergency department for further evaluation and if he would like to be hospitalized for observation for the syncopal episodes that he is more than welcome to come back in. Departure - Departure Disposition: 01 Home, Self Care Clinical Impression: Orthostatic hypotension Syncope Qualifiers: Syncope type: unspecified Qualified Code(s): R55 - Syncope and collapse Instructions: ED Dizziness UKO, ED Syncope Vasovagal Comments: Thank you for trusting us with your care, we have evaluated you for Your syncopal episodes. Your EKG is normal as well as your head and neck CT. Please follow-up with your primary care provider as scheduled. We offered hospitalization for further workup and observation for your syncopal episodes but you declined at this time. If you change your mind or if you start to have another episode of syncope (if you pass out again) please come back to the emergency department for further evaluation. You were found to have something called orthostatic hypotension this means when you stand up your blood pressure drops. Because of this I would recommend making sure that you are getting plenty of fluids and throughout the day and wearing something called compression stockings which are tight socks that can help with orthostatic hypotension. Forms: PCP List Discharge Date/Time: 09/01/23 16:06
--- NOTE | 2023-09-01 13:52 | CT Report ---
PROCEDURE: Head WO INDICATIONS: GLF, confused TECHNIQUE: Noncontrast 4.5 mm thick angled axial sections acquired from the foramen magnum to the vertex. For r adiation dose reduction, the following was used: automated exposure control, adjustment of mA and/or kV according to patient size. COMPARISON: 08/27/2017. FINDINGS: Image quality: Excellent. CSF spaces: Basal cisterns are patent. No extra-axial fluid collections. Ventricles are normal in size and shape. Brain: No midline shift. No intracranial masses or hemorrhage. Nance-white matter interface is norm al. Skull and face: Calvarium and visualized facial bones are intact, without suspicious lesions. Sinuses: Visualized sinuses and mastoids are clear. IMPRESSION: No acute intracranial pathology. Age-related volume loss and mild white matter chronic small vessel ischemic changes. Findings are not significantly changed from 2018 study. Reviewed by: Shin Hernandez MD on 09/01/2023 1:51 PM PDT Approved by: Shin Hernandez MD on 09/01/2023 1:51 PM PDT Station ID: [id number]
--- NOTE | 2023-09-01 13:54 | CT Report ---
PROCEDURE: Cervical Spine WO INDICATIONS: GLF TECHNIQUE: Noncontrast 3 mm thick sections acquired from the skull base to the T4 level. Sagittal and coronal r eformats were then constructed. For radiation dose reduction, the following was used: automated exp osure control, adjustment of mA and/or kV according to patient size. COMPARISON: None. FINDINGS: Image quality: Excellent. Bones: There is straightening and mild reversal of normal cervical lordosis. No fractures or disloca tions. Loss of disc height, degenerative endplate changes and bilateral facet hypertrophic changes a re noted throughout cervical spine more notably involving C5-6 and C6-7 levels. Mild dorsal disc oste ophyte complex formation at C5-6 and C6-7 levels are seen causing mild central canal stenosis, no sig nificant neural foraminal narrowing. Visualized superior ribs are intact. Soft tissues: Prevertebral soft tissues are normal in thickness. No paravertebral hematomas. No ap ical pneumothoraces. IMPRESSION: 1. No acute cervical spine fracture or dislocation. 2. Degenerative disc disease throughout cervical spine more notably at C5-6 and C6-7 levels as above. Reviewed by: Shin Hernandez MD on 09/01/2023 1:53 PM PDT Approved by: Shin Hernandez MD on 09/01/2023 1:53 PM PDT Station ID: [id number]
[2023-09-01 14:19] VITALS: O2SAT 100
[2023-09-01 15:17] VITALS: BP 138/56
== END 2023-09-01 16:06 | disposition home or self-care (01) ==
LOC: ED 12:34
DX: I95.1 Orthostatic hypotension (principal); G20.A1 Parkinson's disease without dyskinesia, without mention of fluctuations; Z79.02 Long term (current) use of antithrombotics/antiplatelets
CPT/HCPCS: 36415; 80053; 83735; 84484; 85025; 93005; 99284

== ENCOUNTER 2023-10-24 15:45 | Emergency (ER) | payer MEDICARE, OTHER ==
--- NOTE | 2023-10-24 16:06 | ED Physician Documentation ---
History of Present Illness - Stated complaint Stated Complaint: FALL - Chief complaint Chief Complaint: General - History obtained from History obtained from: Patient, Family - History of Present Illness Timing: Today Pain level max: 0 Pain level now: 0 - Additonal information Additional information: Patient is an 89-year-old male who presents to the emergency department after a ground-level fall today outside. His states that he has Parkinson's disease. He was "messing with a hose or something". When he fell and hit his head on the side of the house. No loss of consciousness. No seizure activity. No vomiting. Does take Plavix. Has a small abrasion to the right elbow as well. No other injuries. Review of Systems Constitutional: denies: Fever, Chills GI: denies: Vomiting, Diarrhea Skin: denies: Rash Musculoskeletal: denies: Neck pain, Back pain Neurologic: reports: Confused (parkinsons, at his baseline). denies: Focal weakness, Numbness, LOC PD PAST MEDICAL HISTORY - Past Medical History Cardiovascular: None Respiratory: Asthma Neuro: Parkinson's Endocrine/Autoimmune: None GI: None : None HEENT: None Psych: None Musculoskeletal: None Derm: None, Other - Past Surgical History Past Surgical History: Yes General: Colonoscopy Ortho: Knee replacement HEENT: Cataracts - Present Medications Home Medications: Ambulatory Orders Medication Instructions Recorded Confirmed Calcium Carbonate [Calcium] 500 mg ORAL DAILY 08/22/14 11/01/21 Carbidopa/Levodopa 25/100 [Sinemet 1 each PO QID 08/22/14 11/01/21 25 mg/100 mg] Vit D3-Vit K/Berberine/Hops 2,000 tab ORAL DAILY 08/22/14 11/01/21 [Ostera Tablet] Fluticasone [Flonase] 2 sprays JOHN DAILY 02/13/20 11/01/21 Magnesium Oxide 500 mg PO DAILY 02/13/20 11/01/21 Meclizine [Antivert] 25 mg PO BID PRN #30 tablet 02/13/20 11/01/21 Pramipexole Di-HCl [Pramipexole ER] 1 tab ORAL DAILY PM 02/13/20 11/01/21 Rivastigmine Tartrate 1 cap PO QID 11/01/21 11/01/21 [Rivastigmine] Clopidogrel [Plavix] 75 mg PO DAILY 09/01/23 - Allergies Allergies/Adverse Reactions: Allergies Allergy/AdvReac Type Severity Reaction Status Date / Time adhesive Allergy Rash Verified 10/24/23 16:03 - Social History Does the pt smoke?: No Smoking Status: Never smoker Does the pt drink ETOH?: Yes Does the pt have substance abuse?: No - Immunizations Immunizations are current?: Yes - POLST Patient has POLST: No PD ED PE NORMAL - Vitals Vital signs reviewed: Yes - General General: No acute distress, Well developed/nourished, Other (Alert, oriented to person and place. Baseline for the patient.) - HEENT HEENT: Ears normal, Moist mucous membranes, Pharynx benign, Other (Abrasion to the top of the head. No palpable skull fractures. No hematomas.) - Neck Neck: Supple, no meningeal sign, No bony TTP - Cardiac Cardiac: RRR, Strong equal pulses - Respiratory Respiratory: No respiratory distress, Clear bilaterally - Abdomen Abdomen: Soft, Non tender, Non distended - Back Back: No spinal TTP - Derm Derm: Warm and dry - Extremities Extremities: Normal ROM s pain, Other (small abrasion R elbow. Full range of motion of all major joints without pain. Palpation of all 4 extremities without pain.) - Neuro Neuro: medical administrative specialist 2-12 intact, No motor deficit, No sensory deficit, Normal speech, Other (Alert, oriented to person and place. Baseline for the patient.) Eye Opening: Spontaneous Motor: Obeys Commands Verbal: Oriented GCS Score: 15 - Psych Psych: Normal mood, Normal affect Results - Vitals Vitals: Vital Signs - 24 hr 10/24/23 10/24/23 16:05 16:55 Temperature 36.4 C L 36.4 C L Heart Rate 72 72 Respiratory 16 16 Rate Blood Pressure 108/54 L 108/57 L O2 Saturation 97 97 Oxygen O2 Source Room air - Rads (name of study) Head CT Relevant Findings:: Final report received, See rad report PD Medical Decision Making - ED course Complexity details: reviewed results, re-evaluated patient, considered differential, d/w patient, d/w family () ED course: No acute findings on head CT. The abrasion on the right elbow was cleansed and bandaged. No other acute injuries. Ambulating without difficulty. No indication for other x-rays. Head injury instructions given at bedside. Family counseled regarding signs and symptoms for which I believe and urgent re- evaluation would be necessary. Family with good understanding of and agreement to plan and is comfortable going home at this time This document was made in part using voice recognition software. While efforts are made to proofread this document, sound alike and grammatical errors may occur. Departure - Departure Disposition: 01 Home, Self Care Clinical Impression: Abrasion Closed head injury Qualifiers: Encounter type: initial encounter Qualified Code(s): S09.90XA - Unspecified injury of head, initial encounter Condition: Good Instructions: ED Abrasion, ED Head Injury Closed Follow-Up: Ignacia Molina MD [Primary Care Provider] - Within 1 week Comments: Please follow-up with your doctor as needed for further care. His head CT does not show any acute abnormalities today. There is no evidence of hemorrhage, fracture. Please keep the wounds clean. Return if he develops redness, swelling or drainage from the wounds. Return for any new or worsening symptoms. Forms: PCP List Discharge Date/Time: 10/24/23 16:55
[2023-10-24 16:15] VITALS: O2SAT 97
--- NOTE | 2023-10-24 16:37 | CT Report ---
PROCEDURE: CT brain without contrast INDICATIONS: fall, head injury, on plavix TECHNIQUE: Helical axial CT of the brain was obtained without contrast and reformatted in multiple p lanes. Radiation dose reduction was achieved using automated exposure control or adjustment of mA and /or kV according to patient size. COMPARISON: 09/01/2023 FINDINGS: CSF spaces: Ventricles are appropriate in size and position. No hydrocephalus. Basal cisterns unre markable. Brain: No midline shift. No intracranial masses or hemorrhage. Moderate atrophy and multifocal wh ite matter chronic ischemic change noted. Atherosclerotic vascular calcification noted in the [place] segments of both internal carotid arteries. Old right occipital infarct Skull and face: Calvarium and skull base are unremarkable without suspicious lesion. Sinuses: Visualized sinuses and mastoids are clear. 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 No hemorrhag e. Reviewed by: Demetrius Echols MD on 10/24/2023 3:36 PM AKDT Approved by: Demetrius Echols MD on 10/24/2023 3:36 PM AKDT Station ID: [id number]
[2023-10-24] MEDS: BACITRACIN ZINC OINT 1 PACKET TOP STA (16:39)
[2023-10-24 17:01] VITALS: BP 108/57
== END 2023-10-24 16:55 | disposition home or self-care (01) ==
LOC: ED 15:45
DX: S09.90XA Unspecified injury of head, initial encounter (principal); S50.311A Abrasion of right elbow, initial encounter; W18.30XA Fall on same level, unspecified, initial encounter; G20.A1 Parkinson's disease without dyskinesia, without mention of fluctuations; Z79.02 Long term (current) use of antithrombotics/antiplatelets
CPT/HCPCS: 70450; 99284; A9270

== ENCOUNTER 2023-12-07 08:00 | Outpatient (CLI) | payer MEDICARE, OTHER ==
[2023-12-07 18:45] LABS: FECAL OCCULT BLOOD (FIT) NEGATIVE (NEGATIVE)
== END 2023-12-07 23:59 | disposition home or self-care (01) ==
LOC: LAB.N 08:00
PROVIDERS: ATTEND Family Medicine
DX: Z12.11 Encounter for screening for malignant neoplasm of colon (principal)
CPT/HCPCS: 82274

== ENCOUNTER 2024-02-05 18:49 | Outpatient (CLI) | payer MEDICARE, OTHER | END 2024-02-05 19:50 | disposition critical access hospital (66) | LOC: EMS 18:49 | DX: R26.81 Unsteadiness on feet (principal); R47.89 Other speech disturbances; R53.1 Weakness | CPT/HCPCS: A0425; A0429 ==

== ENCOUNTER 2024-02-05 19:05 | Inpatient (IN) | payer MEDICARE, OTHER ==
[2024-02-05] MEDS ORDERED: iohexoL-300 100 ML VIAL ONE (19:17)
[2024-02-05 19:29] LABS: BASOPHILS % (AUTO) 0.3 %; EOSINOPHILS % (AUTO) 0.1 %; HCT - HEMATOCRIT 38.8 % (42.0-52.0); HGB - HEMOGLOBIN 12.1 g/dL (14.0-18.0); LYMPHOCYTES # (AUTO) 0.4 10^3/uL (1.5-3.5); LYMPHOCYTES % (AUTO) 5.3 %; MEAN CORPUSCULAR HEMOGLOBIN 30.4 pg (27.0-31.0); MEAN CORPUSCULAR HGB CONC 31.2 g/dL (32.0-36.0); MEAN CORPUSCULAR VOLUME 97.5 fL (80.0-94.0); MONOCYTES # (AUTO) 0.6 10^3/uL (0.0-1.0); MONOCYTES % (AUTO) 7.5 %; NEUTROPHILS # (AUTO) 6.9 10^3/uL (1.5-6.6); NEUTROPHILS % (AUTO) 86.7 %; PLT - PLATELET COUNT 123 10^3/uL (130-450); RED BLOOD COUNT 3.98 10^6/uL (4.70-6.10); RED CELL DISTRIBUTION WIDTH 13.4 % (12.0-15.0)
[2024-02-05 19:34] LABS: INR 1.3 (0.8-1.2); PT - PROTHROMBIN TIME 14.1 secs (9.9-12.6)
--- NOTE | 2024-02-05 19:43 | CT Report ---
PROCEDURE: Head W/O Stroke Protocol INDICATIONS: Neuro deficit, acute, stroke suspected TECHNIQUE: Noncontrast 4.5 mm thick angled axial sections acquired from the foramen magnum to the vertex, with c oronal reformats. For radiation dose reduction, the following was used: automated exposure control, adjustment of mA and/or kV according to patient size. COMPARISON: Head CT , 08/3112/02/2023. FINDINGS: Image quality: Excellent. CSF spaces: Basal cisterns are patent. No extra-axial fluid collections. Ventricles are normal in size and shape. Brain: No midline shift. No intracranial masses or hemorrhage. No new area of hypodensity in a vasc ular distribution to suggest acute infarction. Small area of hypodensity at the right parietal occipi david lobe is unchanged. This is due to prior infarction. There is periventricular hypodensity consiste nt with chronic microvascular ischemic disease. Age-related parenchymal loss. Skull and face: Calvarium and visualized facial bones are intact, without suspicious lesions. Sinuses: Visualized sinuses and mastoids are clear. IMPRESSION: No acute intracranial hemorrhage. No new area of hypodensity. 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 Results were communicated to Dr. Geoff Tejada at 02/05/2024 7:39 PM PDT. This study fulfills neurological imaging criteria for inclusion or exclusion of acute stroke therapie s based on available published neurological imaging guidelines. Reviewed by: Samuel Stinson MD on 02/05/2024 7:42 PM PDT Approved by: Samuel Stinson MD on 02/05/2024 7:42 PM PDT Station ID: [id number]
[2024-02-05 19:51] LABS: ALBUMIN 4.1 g/dL (3.2-5.5); ALBUMIN/GLOBULIN RATIO 1.8 (1.0-2.2); ALKALINE PHOSPHATASE 70 IU/L (42-121); ALT ALANINE AMINOTRANSFERASE 5 IU/L (10-60); AST ASPARTATE AMINOTRANSFERASE 26 IU/L (10-42); BILIRUBIN,TOTAL 3.6 mg/dL (0.2-1.0); BUN - BLOOD UREA NITROGEN 20 mg/dL (6-20); CALCIUM 8.8 mg/dL (8.5-10.3); CARBON DIOXIDE - CO2 26 mmol/L (21-32); CHLORIDE 104 mmol/L (101-111); GFR - MDRD 71 (>89); GLUCOSE 103 mg/dL (74-104); POTASSIUM 3.8 mmol/L (3.5-4.5); SODIUM 136 mmol/L (135-145); TOTAL PROTEIN 6.4 g/dL (6.4-8.9)
[2024-02-05 19:52] LABS: LIPASE < 10 U/L (11-82)
--- NOTE | 2024-02-05 19:52 | ED Physician Documentation ---
History of Present Illness - Stated complaint Stated Complaint: STROKE LIKE SYMP - Chief complaint Chief Complaint: Neuro - Additonal information Additional information: 88-year-old male with past medical significant for TIA on aspirin and Plavix presents to the emergency department altered mental status. Arrives acute stroke alert with right sided deficits. According to patient at baseline level of health until yesterday when he began to experience some increased cough, congestion, sinus drainage. This morning at approximately 0830 hrs. he woke up with decreased ability to ambulate and increasing confusion. He does have a history of Parkinson's but family reports that he does not have baseline tremor. No reported fever, fall, head trauma. Patient denies shortness of breath, chest pain, abdominal pain, nausea compartment, diarrhea, constipation. Review of Systems Constitutional: denies: Fever Eyes: denies: Loss of vision Ears: denies: Loss of hearing Nose: reports: Congestion Throat: denies: Dental pain / toothache Cardiac: denies: Chest pain / pressure Respiratory: denies: Dyspnea GI: denies: Abdominal Pain, Nausea, Vomiting : denies: Dysuria PD PAST MEDICAL HISTORY - Past Medical History Cardiovascular: None Respiratory: Asthma Neuro: Parkinson's Endocrine/Autoimmune: None GI: None : None HEENT: None Psych: None Musculoskeletal: None Derm: None, Other - Past Surgical History Past Surgical History: Yes General: Colonoscopy Ortho: Knee replacement HEENT: Cataracts - Present Medications Home Medications: Ambulatory Orders Medication Instructions Recorded Confirmed Carbidopa/Levodopa 25/100 [Sinemet 1 each PO QID 08/22/14 11/01/21 25 mg/100 mg] Vit D3-Vit K/Berberine/Hops 2,000 tab ORAL DAILY 08/22/14 02/05/24 [Ostera Tablet] Fluticasone [Flonase] 2 sprays JONH DAILY 02/13/20 02/05/24 Magnesium Oxide 500 mg PO DAILY 02/13/20 02/05/24 Rivastigmine Tartrate 1 cap PO QID 11/01/21 02/05/24 [Rivastigmine] Clopidogrel [Plavix] 75 mg PO DAILY 09/01/23 02/05/24 Aspirin [[employer] Aspirin] 81 mg PO 02/05/24 Atorvastatin Calcium [Lipitor] 80 mg PO 02/05/24 - Allergies Allergies/Adverse Reactions: Allergies Allergy/AdvReac Type Severity Reaction Status Date / Time adhesive Allergy Rash Verified 02/05/24 19:17 - Social History Does the pt smoke?: No Smoking Status: Never smoker Does the pt drink ETOH?: Yes Does the pt have substance abuse?: No - Immunizations Immunizations are current?: Yes - POLST Patient has POLST: No PD ED PE NORMAL - Vitals Vital signs reviewed: Yes (Patient tachypneic, demonstrate some tremulousness.) - General General: Alert and oriented X 3, No acute distress, Well developed/nourished - HEENT HEENT: Atraumatic, PERRL, EOMI, Moist mucous membranes - Neck Neck: Supple, no meningeal sign - Cardiac Cardiac: RRR - Respiratory Respiratory: No respiratory distress - Abdomen Abdomen: Normal bowel sounds - Male Male : Deferred - Rectal Rectal: Deferred - Back Back: No CVA TTP - Derm Derm: Normal color - Extremities Extremities: No deformity - Neuro Neuro: Other (Patient has difficulty, partial gaze palsy, mild pronator drift right upper extremity, difficulty lifting right leg above gurney. NIHSS of 6.) Results - Vitals Vitals: Vital Signs - 24 hr 02/05/24 02/05/24 02/05/24 19:13 19:45 20:01 Temperature 38.1 C H Heart Rate 85 80 Respiratory 28 H 23 Rate Blood Pressure 137/65 H 126/67 O2 Saturation 97 100 02/05/24 02/05/24 20:29 21:11 Temperature 38.0 C H Heart Rate 79 84 Respiratory 27 H 22 Rate Blood Pressure 126/63 137/89 H O2 Saturation 100 100 Oxygen O2 Source Room air - EKG (time done) 1950 EKG releavant findings:: EKG personally interpreted by author of this note. Relevant findings are: Sinus rhythm with rate 90 bpm. Normal axis. Normal MD, QRS, QTc intervals. No ST segment elevations. Nonspecific ST-T wave abnormalities throughout. Moderate motion artifact throughout. - Labs Labs: Laboratory Tests 02/05/24 02/05/24 02/05/24 19:21 19:21 19:21 WBC 8.0 RBC 3.98 L Hgb 12.1 L Hct 38.8 L MCV 97.5 H MCH 30.4 MCHC 31.2 L RDW 13.4 Plt Count 123 L MPV 11.0 Neut # (Auto) 6.9 H Lymph # (Auto) 0.4 L Otero # (Auto) 0.6 Eos # (Auto) 0.0 Baso # (Auto) 0.0 Absolute Nucleated RBC 0.00 Nucleated RBC % 0.0 PT 14.1 H INR 1.3 H Sodium 136 Potassium 3.8 Chloride 104 Carbon Dioxide 26 Anion Gap 6.0 BUN 20 Creatinine 1.0 Estimated GFR (MDRD) 71 L Glucose 103 Lactic Acid Calcium 8.8 Total Bilirubin 3.6 H AST 26 ALT 5 L Alkaline Phosphatase 70 Total Protein 6.4 Albumin 4.1 Globulin 2.3 Albumin/Globulin Ratio 1.8 Lipase < 10 L Urine Color Urine Clarity Urine pH Ur Specific Portal Urine Protein Urine Glucose (UA) Urine Ketones Urine Occult Blood Urine Nitrite Urine Bilirubin Urine Urobilinogen Ur Leukocyte Esterase Ur Microscopic Review Urine Culture Comments Nasal Adenovirus (PCR) Nasal B. parapertussis DNA (PCR) Nasal Coronavir 229E PCR Nasal Coronavir HKU1 PCR Nasal Coronavir NL63 PCR Nasal Coronavir OC43 PCR Nasal Enterovir/Rhinovir PCR Nasal Influenza B PCR Nasal Influenza A PCR Nasal Parainfluen 1 PCR Nasal Parainfluen 2 PCR Nasal Parainfluen 3 PCR Nasal Parainfluen 4 PCR Nasal RSV (PCR) Nasal B.pertussis DNA PCR Nasal C.pneumoniae (PCR) John Human Metapneumo PCR Nasal M.pneumoniae (PCR) Nasal SARS-CoV-2 (PCR) 02/05/24 02/05/24 02/05/24 19:57 20:00 20:12 WBC RBC Hgb Hct MCV MCH MCHC RDW Plt Count MPV Neut # (Auto) Lymph # (Auto) Otero # (Auto) Eos # (Auto) Baso # (Auto) Absolute Nucleated RBC Nucleated RBC % PT INR Sodium Potassium Chloride Carbon Dioxide Anion Gap BUN Creatinine Estimated GFR (MDRD) Glucose Lactic Acid 0.9 Calcium Total Bilirubin AST ALT Alkaline Phosphatase Total Protein Albumin Globulin Albumin/Globulin Ratio Lipase Urine Color YELLOW Urine Clarity CLEAR Urine pH 6.5 Ur Specific Portal 1.020 Urine Protein NEGATIVE Urine Glucose (UA) NEGATIVE Urine Ketones TRACE Urine Occult Blood TRACE-INTA Urine Nitrite NEGATIVE Urine Bilirubin NEGATIVE Urine Urobilinogen 1 (NORMAL) Ur Leukocyte Esterase NEGATIVE Ur Microscopic Review NOT INDICATED Urine Culture Comments NOT INDICATED Nasal Adenovirus (PCR) NOT DETECTED Nasal B. parapertussis DNA (PCR) NOT DETECTED Nasal Coronavir 229E PCR NOT DETECTED Nasal Coronavir HKU1 PCR NOT DETECTED Nasal Coronavir NL63 PCR NOT DETECTED Nasal Coronavir OC43 PCR NOT DETECTED Nasal Enterovir/Rhinovir PCR NOT DETECTED Nasal Influenza B PCR NOT DETECTED Nasal Influenza A PCR NOT DETECTED Nasal Parainfluen 1 PCR NOT DETECTED Nasal Parainfluen 2 PCR NOT DETECTED Nasal Parainfluen 3 PCR NOT DETECTED Nasal Parainfluen 4 PCR NOT DETECTED Nasal RSV (PCR) NOT DETECTED Nasal B.pertussis DNA PCR NOT DETECTED Nasal C.pneumoniae (PCR) NOT DETECTED John Human Metapneumo PCR NOT DETECTED Nasal M.pneumoniae (PCR) NOT DETECTED Nasal SARS-CoV-2 (PCR) DETECTED A PD Medical Decision Making - ED course Complexity details: reviewed results, re-evaluated patient, considered differential, d/w patient, d/w moving consultant ED course: 88-year-old male presents to the emergency department chief complaint of right sided weakness, confusion. Presents initially as acute stroke alert however patient outside the window for thrombolytics or other aggressive interventions. Last known well was last night at approximately 2030 hrs. Patient and O x 4, GCS 14 on arrival. was present at bedside reports history of TIA, dementia, Parkinson's. Patient with what appears to be a partial leftward gaze palsy as well as right upper extremity pronator drift and right lower extremity weakness. NIHSS 6 per my interpretation. While in the emergency department he developed fever 38.0. He is given rectal aspirin. CT head nonacute. CTA head and neck demonstrates decreased attenuation in the M1 right middle cerebral artery distribution as well as a possible AV malformation, mild to moderate less than 70% stenosis to his bilateral ICAs and an area of severe stenosis of the V4 section of his right vertebral artery. Of note none of these areas of decreased blood flow with the exception of the stenosis to his left ICA would explain his symptoms here. Did discuss his care with stroke neurology at [facility] who recommends admission for MRI, continuing his aspirin Plavix, continuing his high-dose statin. Discussed with hospitalist service. At request of hospitalist service cultures ordered on 1 g Rocephin given empirically. Patient to be hospitalized for further evaluation and treatment. Departure - Departure Disposition: 66 [facility] DC/Xfer Clinical Impression: COVID-19 Cerebrovascular accident (CVA) Qualifiers: CVA mechanism: unspecified Qualified Code(s): I63.9 - Cerebral infarction, unspecified Forms: PCP List
--- NOTE | 2024-02-05 19:58 | CT Report ---
PROCEDURE: Angio Head/Neck INDICATIONS: CVA TECHNIQUE: After the administration of intravenous contrast, 1 mm thick sections acquired from the aortic arch t hrough the [place]. 3-dimensional echqhch-yvwctrokq-luriaknktb (MIP) and/or volume renderin g reformats were acquired of the central intracranial vasculature and neck separately. For radiation dose reduction, the following was used: automated exposure control, adjustment of mA and/or kV acco rding to patient size. CONTRAST: 80ml [id number] COMPARISON: Same day noncontrast head CT, 10/24/2023. FINDINGS: Image quality: Diagnostic. HEAD CT: CSF Spaces: Basal cisterns are patent. No extra-axial fluid collections. Ventricles are normal in size and shape. Brain: No significant abnormality is seen for scanning technique. Small area of hypodensity at the r ight parieto-occipital lobe is unchanged. Skull and face: Calvarium and visualized facial bones appear intact, without suspicious lesions. Sinuses: Visualized sinuses and mastoids are clear. HEAD CT ANGIOGRAPHY: Anterior circulation: Intracranial internal carotid arteries demonstrate intracranial atheroscleroti c plaque and somewhat irregular appearance. Right M1 MCA is severely attenuated, (7/170). There is a relative possibly of distal right M1 territory vasculature compared to left, (12/53). The flow within the paired anterior cerebral arteries is normal and symmetric. The flow within the middle cerebral arteries is normal and symmetric. The anterior communicating artery is seen. No aneurysms are seen. Posterior circulation: Stenosis at the right femoral vertebral artery, (7/235). Vertebrals join to fo rm a normal appearing basilar artery. Flow within the posterior cerebral arteries is normal and symm etric. No aneurysms are seen. NECK CT ANGIOGRAPHY: Carotid system: The great vessels demonstrate a conventional anatomy as they arise from the aortic a rch. The origins of the common carotid arteries appear patent. The common carotid arteries demonstr ate normal caliber and courses. Extensive calcified plaque at the bilateral carotid bulbs. 50-69% st enosis estimated bilaterally. The internal carotid arteries demonstrate normal calibers and courses. Posterior circulation: The origins of the vertebral arteries both appear widely patent. The more [place] perior extracranial portions of both vertebral arteries also demonstrate normal courses and calibers. They join to form a normal appearing basilar artery. Soft tissues: Visualized neck soft tissues demonstrate no suspicious abnormalities. Bones: No suspicious bony lesions. Missing dentition. Visualized cervical spine appears normally al igned. IMPRESSION: 1. Right M1 MCA is severely attenuated. There is asymmetric decreased vascularity in the right MCA te rritory compared to the left. 2. Intracranial vessels demonstrate a diffuse irregular appearance. This could be due to atherosclero tic disease. However, a vasculitis could have a similar appearance. 3. 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 4. 50-69% stenosis at the bilateral ICAs. The estimate of stenosis included in the report of the imaging study was calculated using the NASCET method Reviewed by: Samuel Stinson MD on 02/05/2024 7:56 PM PDT Approved by: Samuel Stinson MD on 02/05/2024 7:56 PM PDT Station ID: [id number]
[2024-02-05 20:22] LABS: BILIRUBIN,URINE NEGATIVE (NEGATIVE); GLUCOSE, URINE (UA) NEGATIVE (NEGATIVE); KETONES,URINE (UA) TRACE mg/dL (NEGATIVE); LEUKOCYTE ESTERASE, URINE NEGATIVE (NEGATIVE); NITRITE,URINE NEGATIVE (NEGATIVE); OCCULT BLOOD,URINE TRACE-INTA (NEGATIVE); PH,URINE 6.5 PH (5.0-7.5); PROTEIN,URINE NEGATIVE (NEGATIVE); UROBILINOGEN,URINE 1 (NORMAL) E.U./dL (NORMAL)
[2024-02-05 20:23] LABS: CLARITY,URINE CLEAR (CLEAR)
[2024-02-05] MEDS: iohexoL-300 100 ML VIAL IVP ONE (20:27)
--- NOTE | 2024-02-05 20:28 | XRAY Report ---
PROCEDURE: Chest 1V INDICATIONS: chest pain TECHNIQUE: One view of the chest was acquired. COMPARISON: 03/09/2023 FINDINGS: Surgical changes and devices: None. Lungs and pleura: No pleural effusions or pneumothorax. Lungs are clear. Mediastinum: Mediastinal contours appear normal. Heart size is prominent. Bones and chest wall: No suspicious bony lesions. Overlying soft tissues appear unremarkable. IMPRESSION: No acute cardiopulmonary process. Reviewed by: Daryl Perera MD on 02/05/2024 8:26 PM PDT Approved by: Daryl Perera MD on 02/05/2024 8:26 PM PDT Station ID: [id number]
[2024-02-05] MEDS: LORazepam 2 MG/ML VIAL IVP STA (21:02)
[2024-02-05] MEDS: ASPIRIN 300 MG SUPP PR STA (21:02)
[2024-02-05 21:04] LABS: CORONAVIRUS 229E-RESP PCR NOT DETECTED; CORONAVIRUS HKU1-RESP PCR NOT DETECTED; CORONAVIRUS NL63-RESP PCR NOT DETECTED; CORONAVIRUS OC43-RESP PCR NOT DETECTED
[2024-02-05 21:06] LABS: HUMAN METAPNEUMOVIRUS NOT DETECTED; RHINOVIRUS/ENTEROVIRUS NOT DETECTED; SARS-CoV-2 -RESP PCR PANEL DETECTED
[2024-02-05 21:07] LABS: B. PARAPERTUSSIS- RESP PCR PAN NOT DETECTED; B. PERTUSSIS- RESP PCR PANEL NOT DETECTED; C. PNEUMONIAE- RESP PCR PANEL NOT DETECTED; INFLUENZA A- RESP PCR PANEL NOT DETECTED; INFLUENZA B - RESP PCR PANEL NOT DETECTED; M. PNEUMONIAE- RESP PCR PANEL NOT DETECTED; PARAINFLUENZA VIRUS 1 NOT DETECTED; PARAINFLUENZA VIRUS 2 NOT DETECTED; PARAINFLUENZA VIRUS 3 NOT DETECTED; PARAINFLUENZA VIRUS 4 NOT DETECTED; RSV- RESP PCR PANEL NOT DETECTED
[2024-02-05] MEDS ORDERED: cefTRIAXone 1 GM VIAL ONE (22:01)
[2024-02-05] MEDS: cefTRIAXone 1 GM in SODIUM CHLORIDE 0.9% MINIBAG 100 ML IV STA (22:02)
[2024-02-05] MEDS: SODIUM CHLORIDE 0.9% 1,000 ML IV SCH (22:15)
--- NOTE | 2024-02-05 22:35 | HISTORY & PHYSICAL EXAMINATION ---
Chief Complaint - Chief Complaint Chief Complaint: AMS History of Present Illness - History of Present Illness HPI Comment/Other: 88 y old male with PMH Hyperlipidemia, TIA, parkinson disease brought in to the ER due to AMS and weakness.. Pt is confused at this time , so most is history is by at bed side As per , pt started cough, nasal congestion yesterday. He woke up this am whith AMS and weakness and difficulty ambulating In ER pt also had fever Labs showed normal WBC COVID positive CXR neg CT head and neck was done As per ER physician, stroke alert was called .Neurology recommended MRI brain Pt is admitted due to AMS, possible TIA/CVA, Fever, COVID History - Past Medical History Cardiovascular: reports: None Respiratory: reports: Asthma Neuro: reports: Parkinson's Endocrine/Autoimmune: reports: None GI: reports: None : reports: None HEENT: reports: None Psych: reports: None Musculoskeletal: reports: None Derm: reports: None, Other MRSA Hx?: No - Past Surgical History General: reports: Colonoscopy Ortho: reports: Knee replacement HEENT: reports: Cataracts - POLST Patient has POLST: No Meds/Allgy - Home Medications Home Medications: Ambulatory Orders Medication Instructions Recorded Confirmed Carbidopa/Levodopa 25/100 [Sinemet 1 each PO QID 08/22/14 11/01/21 25 mg/100 mg] Vit D3-Vit K/Berberine/Hops 2,000 tab ORAL DAILY 08/22/14 02/05/24 [Ostera Tablet] Fluticasone [Flonase] 2 sprays JOHN DAILY 02/13/20 02/05/24 Magnesium Oxide 500 mg PO DAILY 02/13/20 02/05/24 Rivastigmine Tartrate 1 cap PO QID 11/01/21 02/05/24 [Rivastigmine] Clopidogrel [Plavix] 75 mg PO DAILY 09/01/23 02/05/24 Aspirin [[place] Aspirin] 81 mg PO 02/05/24 Atorvastatin Calcium [Lipitor] 80 mg PO 02/05/24 - Allergies Allergies/Adverse Reactions: Allergies Allergy/AdvReac Type Severity Reaction Status Date / Time adhesive Allergy Rash Verified 02/05/24 19:17 Review of Systems - Other Findings Other Findings: Unable to obtain due to AMS Exam - Vital Signs Vital Signs: Vital Signs x48h Temp Pulse Resp BP Pulse Ox 02/05/24 21:11 84 22 137/89 H 100 02/05/24 20:29 38.0 C H 79 27 H 126/63 100 02/05/24 20:01 80 23 126/67 100 02/05/24 19:45 38.1 C H 02/05/24 19:13 85 28 H 137/65 H 97 - Physical Exam General Appearance: positive: Lethargic, Other (Pt is confused) ENT: positive: ENT inspection nml Neck: positive: Nml inspection Respiratory: positive: Breath sounds nml Cardiovascular: positive: Regular rate & rhythm Abdomen: positive: Nml bowel sounds Skin: positive: No rash Extremities: positive: No pedal edema Neurologic/Psychiatric: positive: Other (confused) Conclusion/Plan - Lab Results Fish Bones: 02/05/24 19:21 02/05/24 19:21 - Other Other Results/Comments: A: AMS TIA/ CVA Fever COVID infection Hyperlipidemia Parkinsons disease Carotid artery stenosis Plan: Luis to med surg Cardiac monitoring Echo MRI brain WO constrast NPO cont aspirin 81 mg po qd plavix 75 mg po qd Start lipitor 80 mg po qd Check fasting lipid panel NPO ST/PT/OT Follow cultures Start Rocephin and zithroamx emperically DVT prophylaxic: SCD Full code Pt is admitted as inpatient as more than 2 midnight stay is expected
[2024-02-06] MEDS: ACETAMINOPHEN 1,000 MG/100 ML 1,000 MG/100 ML BAG IV ONE (00:53)
[2024-02-06] MEDS: SODIUM CHLORIDE FLUSH 0.9% 10 ML SYRINGE IVP SCH (00:53)
[2024-02-06 05:39] LABS: CHOL/HDL RATIO 1.8 (<5.0); CHOLESTEROL 83 mg/dL; HDL CHOLESTEROL 45 mg/dL; LDL CHOLESTEROL,CALCULATED 26 mg/dL; LDL/HDL RATIO 0.6 (<3.6); TRIGLYCERIDES 60 mg/dL; VLDL CHOLESTEROL 12 mg/dL
[2024-02-06] MEDS ORDERED: HALOPERIDOL 5 MG/ML VIAL IVP PRN (08:27)
[2024-02-06] MEDS ORDERED: ASPIRIN 325 MG TABLET PO SCH (09:00)
[2024-02-06] MEDS ORDERED: NON FORMULARY MED (Atorvastatin Calcium [Lipitor] 80 MG Tablet) PO SCH (09:00)
[2024-02-06] MEDS ORDERED: RIVASTIGMINE TARTRATE 1.5 MG PO SCH (09:00)
[2024-02-06] MEDS: AZITHROMYCIN INJ 500 MG in SODIUM CHLORIDE 0.9% 250 ML IV SCH (10:30)
[2024-02-06] MEDS: ATORVASTATIN 40 MG TABLET PO SCH (10:32)
[2024-02-06] MEDS: MAGNESIUM OXIDE 400 MG TABLET PO SCH (10:33)
[2024-02-06] MEDS: CARBIDOPA/LEVODOPA 25 MG/100 MG TABLET PO SCH (10:36)
[2024-02-06] MEDS: FLUTICASONE NASAL SPRAY NAS SCH (10:37)
[2024-02-06] MEDS: CLOPIDOGREL 75 MG TABLET PO SCH ×2 (10:37→10:55)
[2024-02-06] MEDS: ASPIRIN CHEW 81 MG TABLET PO SCH (10:45)
[2024-02-06] MEDS: CHOLECALCIFEROL 25 MCG TABLET PO SCH (10:55)
--- NOTE | 2024-02-06 11:41 | PHARMACY PROGRESS NOTE ---
- Best Possible Medication History Admit Date and Time: 02/05/24 2154 Medications reviewed in ED?: Yes Medication History completed: Yes Patient Interview: Completed Secondary Source(s): Written medication list, Spouse/Significant other (PER SURSCRIPT RECORDS AND WRITTEN MED LIST PROVIDED BY SPOUSE), Insurance records As the person ultimately responsible for medication therapy, providers are able to order a medication from an existing home medication list in [facility] via the "Reconcile Routine" prior to Confirmation of that medication by arch support maker. Such practice is discouraged except when the physician, in their clinical judgment, deems that a medical need exists for a medication without regard to previous use.
--- NOTE | 2024-02-06 11:48 | PROVIDER PROGRESS NOTE ---
Subjective - Prog Note Date Prog Note Date: 02/06/24 Prog Note Time: 11:50 - Subjective Subjective: The patient is an 88-year-old male with a history of Parkinson's disease. 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 He has a history of CVA in the past as well as hyperlipidemia. The patient presented to the emergency room with a 24 to 48-hour history of worsening weakness, difficulty ambulating and worsening altered mental status. Yesterday the patient started coughing and had increased nasal congestion and fever. In the emergency room the patient was found to be positive for COVID-19. Chest x-ray did not reveal an underlying infiltrate. White blood cell count was norm al. A code stroke was called in the emergency room. The patient did have a CT of the brain which revealed evidence of an old stroke but nothing acute. He had his CT angiography of the head and neck which revealed a 50 to 69% stenosis of the bilateral ICAs. 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 Neurology recommended an MRI of the brain. The patient was referred for admission. I saw the patient this morning. He has been somewhat agitated and trying to climb out of the bed. However he knew he was in the hospital and he knew his name and what year it was. However clearly confused in regards to his situation. He was able to tell me that he came to the hospital because he could not walk. Otherwise he could not give me any meaningful information. A review of systems could not be obtained. I did speak to the patient's . She states that she is quite concerned about his inability to ambulate and would like for him to be evaluated by physical therapy and Occupational Therapy. She states that he has some underlying confusion at home but at this point is way off his normal baseline. Current Medications - Current Medications Current Medications: Active Medications Generic Name Dose Route Start Last Admin Trade Name Sirena PRN Reason Stop Dose Admin Aspirin 81 mg 02/06/24 09:00 02/06/24 10:45 Aspirin Chew 81 Mg Tablet PO 81 mg DAILY EMILY Administration Atorvastatin Calcium 80 mg 02/06/24 09:00 02/06/24 10:32 Atorvastatin 40 Mg Tablet PO 80 mg DAILY EMILY Administration Carbidopa/Levodopa 1 tab 02/06/24 09:00 02/06/24 10:36 Carbidopa/Levodopa 25 Mg/100 Mg Tablet PO 1 tab QID EMILY Administration Cholecalciferol 50 mcg 02/06/24 09:00 02/06/24 10:55 Cholecalciferol 25 Mcg Tablet PO 50 mcg DAILY EMILY Administration Clopidogrel Bisulfate 75 mg 02/06/24 09:00 02/06/24 10:55 Clopidogrel 75 Mg Tablet PO Not Given DAILY EMILY Fluticasone Propionate 2 sprays 02/06/24 09:00 02/06/24 10:37 Fluticasone Nasal [place] JOHN 2 spray DAILY EMILY Administration Haloperidol 1 mg 02/06/24 08:27 Haloperidol 5 Mg/Ml Vial IVP Q6H PRN Agitation Sodium Chloride 1,000 mls @ 100 mls/hr 02/05/24 22:00 02/06/24 06:42 Normal Saline 0.9% IV 100 mls/hr .Q10H EMILY Administration Ceftriaxone Sodium 1 gm/ 100 mls @ 200 mls/hr 02/06/24 22:00 Sodium Chloride IV Q24H EMILY Azithromycin 500 mg/ Sodium 250 mls @ 250 mls/hr 02/06/24 09:00 02/06/24 11:30 Chloride IV Infused DAILY EMILY Infusion Magnesium Oxide 400 mg 02/06/24 09:00 02/06/24 10:33 Magnesium Oxide 400 Mg Tablet PO 400 mg DAILY EMILY Administration Ondansetron HCl 4 mg 02/05/24 21:54 Ondansetron 4 Mg/2 Ml Vial IVP Q6HR PRN Nausea / Vomiting Sodium Chloride 10 ml 02/05/24 21:54 Sodium Chloride Flush 0.9% 10 Ml Syringe IVP PRN PRN NEEDED PER PROVIDER ORDERS Sodium Chloride 10 ml 02/06/24 01:00 02/06/24 10:43 Sodium Chloride Flush 0.9% 10 Ml Syringe IVP 10 ml 0100,0900,1700 EMILY Administration Carbidopa/Levodopa 25/100 [Sinemet 25 mg/100 mg] 1 each PO QID 08/22/14 Vit D3-Vit K/Berberine/Hops [Ostera Tablet] 2,000 tab ORAL DAILY 08/22/14 Fluticasone [Flonase] 2 sprays JOHN DAILY 02/13/20 Magnesium Oxide 500 mg PO DAILY 02/13/20 Rivastigmine Tartrate [Rivastigmine] 1 cap PO QID 11/01/21 Clopidogrel [Plavix] 75 mg PO DAILY 09/01/23 Aspirin [Cherry Aspirin] 81 mg PO DAILY 02/05/24 Atorvastatin Calcium [Lipitor] 80 mg PO DAILY 02/05/24 Cyanocobalamin (Vitamin B-12) [Vitamin B-12] 1 tab PO DAILY 02/06/24 Melatonin 1 cap PO HS 02/06/24 Pramipexole Di-HCl [Mirapex ER] 1 tab PO DAILY 02/06/24 Tamsulosin [Flomax] 1 cap PO HS 02/06/24 Objective - Vital Signs/Intake & Output Reviewed Vital Signs: Yes Vital Signs: Vital Signs x48h Temp Pulse Resp BP Pulse Ox 02/06/24 08:13 36.6 C 59 L 20 141/62 H 97 02/06/24 05:41 36.4 C L 54 L 20 116/61 97 Intake & Output: Intake & Output 02/03/24 02/04/24 02/05/24 02/06/24 23:59 23:59 23:59 23:59 Intake Total 100 1095 Output Total 810 Balance 100 285 - Objective General Appearance: positive: Other (The patient is somewhat agitated but he is alert and oriented x 3 but clearly confused as to his situation.) Eyes Bilateral: positive: Normal inspection ENT: positive: ENT inspection nml Neck: positive: Nml inspection Respiratory: positive: Rhonchi (He has some scattered coarse rhonchi anteriorly) Cardiovascular: positive: Regular rate & rhythm, No murmur, No gallop. negative: Friction rub Abdomen: positive: Non-tender, No organomegaly, Nml bowel sounds Skin: positive: Color nml, No rash, Warm, Dry Extremities: positive: Non-tender, Full ROM Neurologic/Psychiatric: positive: Oriented x3, CN's nml (2-12), Other (No focal deficits were noted. He passed a swallowing exam while I was in the room.) - Lab Results Fish Bones: 02/05/24 19:21 02/05/24 19:21 Other Labs: Lab Results x24hrs 02/06/24 02/05/24 02/05/24 Range/Units 05:00 20:12 20:00 WBC (4.8-10.8) x10^3/uL RBC (4.70-6.10) 10^6/uL Hgb (14.0-18.0) g/dL Hct (42.0-52.0) % MCV (80.0-94.0) fL MCH (27.0-31.0) pg MCHC (32.0-36.0) g/dL RDW (12.0-15.0) % Plt Count (130-450) 10^3/uL MPV (7.4-11.4) fL Neut # (Auto) (1.5-6.6) 10^3/uL Lymph # (Auto) (1.5-3.5) 10^3/uL Campbell # (Auto) (0.0-1.0) 10^3/uL Eos # (Auto) (0.0-0.7) 10^3/uL Baso # (Auto) (0.0-0.1) 10^3/uL Absolute Nucleated RBC x10^3/uL Nucleated RBC % /100WBC PT (9.9-12.6) secs INR (0.8-1.2) Sodium (135-145) mmol/L Potassium (3.5-4.5) mmol/L Chloride (101-111) mmol/L Carbon Dioxide (21-32) mmol/L Anion Gap (6-13) BUN (6-20) mg/dL Creatinine (0.6-1.3) mg/dL Estimated GFR (MDRD) (>89) Glucose (74-104) mg/dL Lactic Acid (0.5-2.2) mmol/L Calcium (8.5-10.3) mg/dL Total Bilirubin (0.2-1.0) mg/dL AST (10-42) IU/L ALT (10-60) IU/L Alkaline Phosphatase (42-121) IU/L Total Protein (6.4-8.9) g/dL Albumin (3.2-5.5) g/dL Globulin (2.1-4.2) g/dL Albumin/Globulin Ratio (1.0-2.2) Triglycerides 60 mg/dL Cholesterol 83 ( - 200) mg/dL LDL Cholesterol, Calc 26 ( - 129) mg/dL VLDL Cholesterol 12 mg/dL HDL Cholesterol 45 L (60 - ) mg/dL LDL/HDL Ratio 0.6 (<3.6) Cholesterol/HDL Ratio 1.8 (<5.0) Lipase (11-82) U/L Urine Color YELLOW Urine Clarity CLEAR (CLEAR) Urine pH 6.5 (5.0-7.5) PH Ur Specific [place] 1.020 (1.002-1.030) Urine Protein NEGATIVE (NEGATIVE) mg/dL Urine Glucose (UA) NEGATIVE (NEGATIVE) mg/dL Urine Ketones TRACE (NEGATIVE) mg/dL Urine Occult Blood TRACE-INTA (NEGATIVE) Urine Nitrite NEGATIVE (NEGATIVE) Urine Bilirubin NEGATIVE (NEGATIVE) Urine Urobilinogen 1 (NORMAL) (NORMAL) E.U./dL Ur Leukocyte Esterase NEGATIVE (NEGATIVE) Ur Microscopic Review NOT INDICATED Urine Culture Comments NOT INDICATED Nasal Adenovirus (PCR) NOT DETECTED Nasal B. parapertussis DNA (PCR) NOT DETECTED Nasal Coronavir 229E PCR NOT DETECTED Nasal Coronavir HKU1 PCR NOT DETECTED Nasal Coronavir NL63 PCR NOT DETECTED Nasal Coronavir OC43 PCR NOT DETECTED Nasal Enterovir/Rhinovir PCR NOT DETECTED Nasal Influenza B PCR NOT DETECTED Nasal Influenza A PCR NOT DETECTED Nasal Parainfluen 1 PCR NOT DETECTED Nasal Parainfluen 2 PCR NOT DETECTED Nasal Parainfluen 3 PCR NOT DETECTED Nasal Parainfluen 4 PCR NOT DETECTED Nasal RSV (PCR) NOT DETECTED Nasal B.pertussis DNA PCR NOT DETECTED Nasal C.pneumoniae (PCR) NOT DETECTED John Human Metapneumo PCR NOT DETECTED Nasal M.pneumoniae (PCR) NOT DETECTED Nasal SARS-CoV-2 (PCR) DETECTED A 02/05/24 02/05/24 02/05/24 Range/Units 19:57 19:21 19:21 WBC (4.8-10.8) x10^3/uL RBC (4.70-6.10) 10^6/uL Hgb (14.0-18.0) g/dL Hct (42.0-52.0) % MCV (80.0-94.0) fL MCH (27.0-31.0) pg MCHC (32.0-36.0) g/dL RDW (12.0-15.0) % Plt Count (130-450) 10^3/uL MPV (7.4-11.4) fL Neut # (Auto) (1.5-6.6) 10^3/uL Lymph # (Auto) (1.5-3.5) 10^3/uL Campbell # (Auto) (0.0-1.0) 10^3/uL Eos # (Auto) (0.0-0.7) 10^3/uL Baso # (Auto) (0.0-0.1) 10^3/uL Absolute Nucleated RBC x10^3/uL Nucleated RBC % /100WBC PT 14.1 H (9.9-12.6) secs INR 1.3 H (0.8-1.2) Sodium 136 (135-145) mmol/L Potassium 3.8 (3.5-4.5) mmol/L Chloride 104 (101-111) mmol/L Carbon Dioxide 26 (21-32) mmol/L Anion Gap 6.0 (6-13) BUN 20 (6-20) mg/dL Creatinine 1.0 (0.6-1.3) mg/dL Estimated GFR (MDRD) 71 L (>89) Glucose 103 (74-104) mg/dL Lactic Acid 0.9 (0.5-2.2) mmol/L Calcium 8.8 (8.5-10.3) mg/dL Total Bilirubin 3.6 H (0.2-1.0) mg/dL AST 26 (10-42) IU/L ALT 5 L (10-60) IU/L Alkaline Phosphatase 70 (42-121) IU/L Total Protein 6.4 (6.4-8.9) g/dL Albumin 4.1 (3.2-5.5) g/dL Globulin 2.3 (2.1-4.2) g/dL Albumin/Globulin Ratio 1.8 (1.0-2.2) Triglycerides mg/dL Cholesterol ( - 200) mg/dL LDL Cholesterol, Calc ( - 129) mg/dL VLDL Cholesterol mg/dL HDL Cholesterol (60 - ) mg/dL LDL/HDL Ratio (<3.6) Cholesterol/HDL Ratio (<5.0) Lipase < 10 L (11-82) U/L Urine Color Urine Clarity (CLEAR) Urine pH (5.0-7.5) PH Ur Specific [place] (1.002-1.030) Urine Protein (NEGATIVE) mg/dL Urine Glucose (UA) (NEGATIVE) mg/dL Urine Ketones (NEGATIVE) mg/dL Urine Occult Blood (NEGATIVE) Urine Nitrite (NEGATIVE) Urine Bilirubin (NEGATIVE) Urine Urobilinogen (NORMAL) E.U./dL Ur Leukocyte Esterase (NEGATIVE) Ur Microscopic Review Urine Culture Comments Nasal Adenovirus (PCR) Nasal B. parapertussis DNA (PCR) Nasal Coronavir 229E PCR Nasal Coronavir HKU1 PCR Nasal Coronavir NL63 PCR Nasal Coronavir OC43 PCR Nasal Enterovir/Rhinovir PCR Nasal Influenza B PCR Nasal Influenza A PCR Nasal Parainfluen 1 PCR Nasal Parainfluen 2 PCR Nasal Parainfluen 3 PCR Nasal Parainfluen 4 PCR Nasal RSV (PCR) Nasal B.pertussis DNA PCR Nasal C.pneumoniae (PCR) John Human Metapneumo PCR Nasal M.pneumoniae (PCR) Nasal SARS-CoV-2 (PCR) 02/05/24 Range/Units 19:21 WBC 8.0 (4.8-10.8) x10^3/uL RBC 3.98 L (4.70-6.10) 10^6/uL Hgb 12.1 L (14.0-18.0) g/dL Hct 38.8 L (42.0-52.0) % MCV 97.5 H (80.0-94.0) fL MCH 30.4 (27.0-31.0) pg MCHC 31.2 L (32.0-36.0) g/dL RDW 13.4 (12.0-15.0) % Plt Count 123 L (130-450) 10^3/uL MPV 11.0 (7.4-11.4) fL Neut # (Auto) 6.9 H (1.5-6.6) 10^3/uL Lymph # (Auto) 0.4 L (1.5-3.5) 10^3/uL Campbell # (Auto) 0.6 (0.0-1.0) 10^3/uL Eos # (Auto) 0.0 (0.0-0.7) 10^3/uL Baso # (Auto) 0.0 (0.0-0.1) 10^3/uL Absolute Nucleated RBC 0.00 x10^3/uL Nucleated RBC % 0.0 /100WBC PT (9.9-12.6) secs INR (0.8-1.2) Sodium (135-145) mmol/L Potassium (3.5-4.5) mmol/L Chloride (101-111) mmol/L Carbon Dioxide (21-32) mmol/L Anion Gap (6-13) BUN (6-20) mg/dL Creatinine (0.6-1.3) mg/dL Estimated GFR (MDRD) (>89) Glucose (74-104) mg/dL Lactic Acid (0.5-2.2) mmol/L Calcium (8.5-10.3) mg/dL Total Bilirubin (0.2-1.0) mg/dL AST (10-42) IU/L ALT (10-60) IU/L Alkaline Phosphatase (42-121) IU/L Total Protein (6.4-8.9) g/dL Albumin (3.2-5.5) g/dL Globulin (2.1-4.2) g/dL Albumin/Globulin Ratio (1.0-2.2) Triglycerides mg/dL Cholesterol ( - 200) mg/dL LDL Cholesterol, Calc ( - 129) mg/dL VLDL Cholesterol mg/dL HDL Cholesterol (60 - ) mg/dL LDL/HDL Ratio (<3.6) Cholesterol/HDL Ratio (<5.0) Lipase (11-82) U/L Urine Color Urine Clarity (CLEAR) Urine pH (5.0-7.5) PH Ur Specific [place] (1.002-1.030) Urine Protein (NEGATIVE) mg/dL Urine Glucose (UA) (NEGATIVE) mg/dL Urine Ketones (NEGATIVE) mg/dL Urine Occult Blood (NEGATIVE) Urine Nitrite (NEGATIVE) Urine Bilirubin (NEGATIVE) Urine Urobilinogen (NORMAL) E.U./dL Ur Leukocyte Esterase (NEGATIVE) Ur Microscopic Review Urine Culture Comments Nasal Adenovirus (PCR) Nasal B. parapertussis DNA (PCR) Nasal Coronavir 229E PCR Nasal Coronavir HKU1 PCR Nasal Coronavir NL63 PCR Nasal Coronavir OC43 PCR Nasal Enterovir/Rhinovir PCR Nasal Influenza B PCR Nasal Influenza A PCR Nasal Parainfluen 1 PCR Nasal Parainfluen 2 PCR Nasal Parainfluen 3 PCR Nasal Parainfluen 4 PCR Nasal RSV (PCR) Nasal B.pertussis DNA PCR Nasal C.pneumoniae (PCR) John Human Metapneumo PCR Nasal M.pneumoniae (PCR) Nasal SARS-CoV-2 (PCR) ABX Reporting Has patient been on IV antibiotics over the past 48 hours?: No Sepsis Event Note (H) - Evaluation Current Stage of Sepsis: Sepsis Possible source of Sepsis: positive: Pulmonary Confirmed Source and Organism (if known) of Sepsis: COVID-19 - Sepsis Criteria Sepsis Criteria: Recorded Temperature greater than 38.3C or Less than 36C, Rec orded Respiratory Rate greater than 20, ROCK DUSTER: altered consciousness (unrelated to primary neuro pathology), MAP less than 65 mmHg, Hepatic: Bilirubin greater than 2mg/dl Assessment/Plan - Problem List (1) Acute metabolic encephalopathy Impression: A code stroke was called in the emergency room. I am not seeing any focal deficits on exam. Neurology recommended an MRI which has been ordered. I suspect his encephalopathy is due to his COVID-19 infection. According to the patient's he is way off his cognitive baseline. Continue workup and treatment as outlined below. This morning he is not any better yet. (2) COVID-19 Impression: COVID-19 at this point supportive care only. He is not hypoxic. I do not think that he needs steroids or remdesivir unless he clinically worsens. Continue COVID precautions. (3) Cerebrovascular disease Impression: The patient has a history of a CVA in the past. Continue aspirin 81 mg daily and atorvastatin 80 mg daily. Neurology recommended an MRI of the brain to rule out a CVA. This has been ordered but not yet performed. Due to the patient's agitation he has some IV Ativan to be given just prior to going down for MRI. (4) Sepsis Impression: The patient has evidence of sepsis likely due to his COVID-19 infection. He is on IV ceftriaxone and azithromycin in the event that he has a superimposed bacterial process going on as well. The patient's white blood cell count was normal. He was hypotensive with MAP's less than 70 ( 1 SOFA point), thrombocytopenia with a platelet level of 123 ( 1 SOFA point). He has an elevated bilirubin of 3.6. Bilirubin is always elevated but his baseline appears to be around 2. (at least 1 SOFA point). He has a sofa score of 3. He has been febrile as well. Continue supportive care for COVID-19 and empiric IV antibiotics. (5) Bilateral carotid artery stenosis Impression: CT angiography revealed a 50 to 69% occlusion bilaterally. At this point I do not think there is anything we would do about this acutely in light of his COVID infection. He will need to have surveillance and CT surgery evaluation as an outpatient. 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 (6) Parkinsons disease Impression: The patient also appears to have underlying Parkinson's dementia. Continue home regimen (7) Hyperlipidemia Impression: Continue atorvastatin 80 mg daily (8) Anemia Impression: Mild and likely stable. He will have a CBC in the morning (9) Ambulatory dysfunction Impression: The patient's is quite concerned regarding the patient's inability to ambulate safely. Will have physical therapy and Occupational Therapy see the patient. He likely will need subacute rehabilitation at discharge prior to transitioning home Disposition: Inpatient hospitalization remains necessary. The patient is still acutely encephalopathic. He needs an MRI of the brain and supportive care while going through his COVID infection. Timing of disposition will be determined by his clinical course but at this juncture in time I expect him to be in the hospital for the next 24 to 48 hours. Time spent: 35 minutes
[2024-02-06] MEDS: ZINC OXIDE 20% OINT 30 GM TUBE TOP PRN (18:17)
[2024-02-06] MEDS: PATIENT OWN MED PO SCH ×2 (21:42→21:45)
[2024-02-06] MEDS: cefTRIAXone 1 GM in SODIUM CHLORIDE 0.9% MINIBAG 100 ML IV SCH (21:46)
[2024-02-07] MEDS: polyethylene glycoL 3350 17 GM PACKET PO SCH (08:24)
--- NOTE | 2024-02-07 09:10 | PROVIDER PROGRESS NOTE ---
Subjective - Prog Note Date Prog Note Date: 02/07/24 Prog Note Time: 09:08 - Subjective Subjective: The patient is an 88-year-old male with a history of Parkinson's disease. According to the patient his he has some cognitive dysfunction likely due to Parkinson's dementia. He has a history of CVA in the past as well as hyperlipidemia. The patient presented to the emergency room with a 24 to 48-hour history of worsening weakness, difficulty ambulating and worsening altered mental status. After admission, he began coughing and had increased nasal congestion and fever. In the emergency room the patient was found to be positive for COVID-19. Chest x-ray did not reveal an underlying infiltrate. White blood cell count was normal. A code stroke was called in the emergency room. The patient did have a CT of the brain which revealed evidence of an old stroke but nothing acute. He had his CT angiography of the head and neck which revealed a 50 to 69% stenosis of the bilateral ICAs. 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 Neurology recommended an MRI of the brain. The patient was referred for admission. His daughter, at bedside recalls some history of carotid stenosis. he has seen neurology as an outpatient in the past. He is not oriented this morning. he could not give me any meaningful information. A review of systems could not be obtained. Daughter was at bedside today . He is confused in the AM, then not compliant with MRI, and therefore received haldol and Ativan, now confused and somnolent this afternoon. His mental status is very altered from baseline. Current Medications - Current Medications Current Medications: Medications Aspirin (Aspirin Chew 81 Mg Tablet) 81 mg PO DAILY [facility] Last Admin: 02/07/24 08:23 Dose: 81 mg Carbidopa/Levodopa (Carbidopa/Levodopa 25 Mg/100 Mg Tablet) 1 tab PO QID [facility] Last Admin: 02/07/24 08:22 Dose: 1 tab Ceftriaxone Sodium 1 gm/ (Sodium Chloride) 100 mls @ 200 mls/hr IV Q24H [facility] Last Admin: 02/06/24 22:16 Dose: Infused Magnesium Oxide (Magnesium Oxide 400 Mg Tablet) 400 mg PO DAILY [facility] Last Admin: 02/07/24 08:23 Dose: 400 mg Ondansetron HCl (Ondansetron 4 Mg/2 Ml Vial) 4 mg IVP Q6HR PRN PRN Reason: Nausea / Vomiting Patient Own Medication (Patient Own Med) 2 each PO BID [facility] Last Admin: 02/07/24 08:30 Dose: 2 each Patient Own Medication (Patient Own Med) 1 each PO QPM [facility] Last Admin: 02/06/24 21:45 Dose: 1 each Atorvastatin Calcium (Atorvastatin 40 Mg Tablet) 80 mg PO DAILY [facility] Last Admin: 02/07/24 08:24 Dose: 80 mg Azithromycin 500 mg/ Sodium (Chloride) 250 mls @ 250 mls/hr IV DAILY [facility] Last Admin: 02/07/24 08:25 Dose: 250 mls/hr Cholecalciferol (Cholecalciferol 25 Mcg Tablet) 50 mcg PO DAILY [facility] Last Admin: 02/07/24 08:23 Dose: 50 mcg Clopidogrel Bisulfate (Clopidogrel 75 Mg Tablet) 75 mg PO DAILY [facility] Last Admin: 02/07/24 08:24 Dose: 75 mg Fluticasone Propionate (Fluticasone Nasal [place]) 2 sprays JOHN DAILY [facility] Last Admin: 02/07/24 08:30 Dose: 2 spray Haloperidol (Haloperidol 5 Mg/Ml Vial) 1 mg IVP Q6H PRN PRN Reason: Agitation Objective - Vital Signs/Intake & Output Vital Signs: Vital Signs x48h Temp Pulse Resp BP Pulse Ox 02/07/24 07:56 36.7 C 71 24 161/81 H 97 02/07/24 05:07 36.7 C 67 18 163/75 H 94 Intake & Output: Intake & Output 02/04/24 02/05/24 02/06/24 02/07/24 23:59 23:59 23:59 23:59 Intake Total 100 2866.667 598.333 Output Total 1210 Balance 100 1656.667 598.333 - Objective General Appearance: positive: No acute distress, Other Eyes Bilateral: positive: Normal inspection ENT: positive: ENT inspection nml Neck: positive: Nml inspection Respiratory: positive: Chest non-tender, No respiratory distress, Breath sounds nml, Other (no rhonchi noted today) Cardiovascular: positive: Regular rate & rhythm Abdomen: positive: Non-tender, No distention Back: positive: Nml inspection Skin: positive: Color nml Extremities: positive: Non-tender, No pedal edema Neurologic/Psychiatric: positive: Disoriented to person, Disoriented to place, Disoriented to time, Other (confused speech) - Lab Results Fish Bones: 02/07/24 09:45 02/07/24 09:45 ABX Reporting Has patient been on IV antibiotics over the past 48 hours?: Yes Sepsis Event Note (H) - Evaluation Current Stage of Sepsis: Sepsis Possible source of Sepsis: positive: Pulmonary - Sepsis Criteria Sepsis Criteria: Recorded Temperature greater than 38.3C or Less than 36C, Recorded Respiratory Rate greater than 20, EXPERIMENTAL ROCKETSLED MECHANIC: altered consciousness (unrelated to primary neuro pathology), MAP less than 65 mmHg, Hepatic: Bilirubin greater than 2mg/dl Assessment/Plan - Problem List (1) Acute metabolic encephalopathy Impression: A code stroke was called in the emergency room. MRI has been done, and result is pending. I suspect his encephalopathy is due to his COVID-19 infection. He is not better today, but that could be partially due to meds needed to complete MRI of the brain. (2) COVID-19 Impression: COVID-19 at this point supportive care only. He is not hypoxic. No need for steroids or remdesivir at this time. Continue COVID precautions. He will need to be on precautions through 02/14. (3) Cerebrovascular disease Impression: The patient has a history of a CVA in the past. Continue aspirin 81 mg daily and atorvastatin 80 mg daily. Neurology recommended an MRI of the brain to rule out a CVA. result pending Due to the patient's agitation, he was given ativan prior to MRI. Unfortunately this has caused somnolence. Echocardigram is complete. no significant valvular pathology. Normal LV and RV size and function. (4) Sepsis Impression: The patient has evidence of sepsis likely due to his COVID-19 infection. He is on IV ceftriaxone and azithromycin in the event that he has a superimposed bacterial process going on as well. The patient's white blood cell count remains normal. He was hypotensive with MAP's less than 70 ( 1 SOFA point), this has improved. hypertensive today. thrombocytopenia with a platelet level of 123 ( 1 SOFA point), at admit, now 107.. He has an elevated bilirubin of 3.2, elevated at admit 3.6. Bilirubin is always elevated but his baseline appears to be around 2. (at least 1 SOFA point). He has a sofa score of 2. defervesced 2 days ago. Continue supportive care for COVID-19 and empiric IV antibiotics. Rocephin day 2/5, azithromycin day 2/ (5) Bilateral carotid artery stenosis Impression: CT angiography revealed a 50 to 69% occlusion bilaterally. At this point I do not think there is anything we would do about this acutely in light of his COVID infection. He will need to have surveillance and vascular surgery evaluation as an outpatient. 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 This was discussed briefly with his daughter today (6) Parkinsons disease Impression: The patient also appears to have underlying Parkinson's dementia. Continue home regimen. has not been able to swallow today. he has missed 2 doses of his Sinemet. (7) Hyperlipidemia Impression: Continue atorvastatin 80 mg daily, when he is able to swallow (8) Anemia Impression: Mild and likely stable. He will have a CBC in the morning. he has dropped from 12.1 to 11.2, hemoglobin. (9) Ambulatory dysfunction Impression: The patient's is quite concerned regarding the patient's inability to ambulate safely. Will have physical therapy and Occupational Therapy see the patient. We have not been able to complete this evaluation today due to mental status.` He likely will need subacute rehabilitation at discharge prior to transitioning home Disposition: Inpatient hospitalization remains necessary. The patient is still acutely encephalopathic. He needs supportive care while going through his COVID infection. Timing of disposition will be determined by his clinical course but at this juncture in time I expect him to be in the hospital for the next 24 to 48 hours. Hopefully can obtain MRI result, and mental status will improve by tomorrow for therapy evaluations. Time spent: 35 minutes
[2024-02-07 09:56] LABS: HCT - HEMATOCRIT 34.1 % (42.0-52.0); HGB - HEMOGLOBIN 11.2 g/dL (14.0-18.0); MEAN CORPUSCULAR HEMOGLOBIN 30.7 pg (27.0-31.0); MEAN CORPUSCULAR HGB CONC 32.8 g/dL (32.0-36.0); MEAN CORPUSCULAR VOLUME 93.4 fL (80.0-94.0); MEAN PLATELET VOLUME 10.5 fL (7.4-11.4); RED BLOOD COUNT 3.65 10^6/uL (4.70-6.10); RED CELL DISTRIBUTION WIDTH 13.3 % (12.0-15.0); WHITE BLOOD COUNT 5.5 x10^3/uL (4.8-10.8)
[2024-02-07 10:11] LABS: ALBUMIN 3.4 g/dL (3.2-5.5); ALBUMIN/GLOBULIN RATIO 1.7 (1.0-2.2); BILIRUBIN,TOTAL 3.2 mg/dL (0.2-1.0); CALCIUM 7.9 mg/dL (8.5-10.3); CREATININE 0.7 mg/dL (0.6-1.3); POTASSIUM 3.2 mmol/L (3.5-4.5); TOTAL PROTEIN 5.4 g/dL (6.4-8.9)
[2024-02-07] MEDS: LORazepam 2 MG/ML VIAL IVP SCH ×2 (17:10)
[2024-02-07] MEDS: POTASSIUM CHLOR 10 MEQ/100 ML 10 MEQ/100 ML BAG IV SCH (18:30)
[2024-02-08] MEDS: SODIUM CHLORIDE FLUSH 0.9% 10 ML SYRINGE IVP PRN (00:14)
[2024-02-08 06:06] LABS: BASOPHILS % (AUTO) 0.5 %; EOSINOPHILS # (AUTO) 0.2 10^3/uL (0.0-0.7); EOSINOPHILS % (AUTO) 3.6 %; HCT - HEMATOCRIT 37.3 % (42.0-52.0); HGB - HEMOGLOBIN 12.2 g/dL (14.0-18.0); LYMPHOCYTES # (AUTO) 1.1 10^3/uL (1.5-3.5); LYMPHOCYTES % (AUTO) 20.1 %; MEAN CORPUSCULAR HEMOGLOBIN 30.1 pg (27.0-31.0); MEAN CORPUSCULAR HGB CONC 32.7 g/dL (32.0-36.0); MEAN CORPUSCULAR VOLUME 92.1 fL (80.0-94.0); MEAN PLATELET VOLUME 10.6 fL (7.4-11.4); MONOCYTES # (AUTO) 0.7 10^3/uL (0.0-1.0); MONOCYTES % (AUTO) 11.8 %; NEUTROPHILS # (AUTO) 3.6 10^3/uL (1.5-6.6); NEUTROPHILS % (AUTO) 63.8 %; PLT - PLATELET COUNT 124 10^3/uL (130-450); RED BLOOD COUNT 4.05 10^6/uL (4.70-6.10); RED CELL DISTRIBUTION WIDTH 13.2 % (12.0-15.0); WHITE BLOOD COUNT 5.6 x10^3/uL (4.8-10.8)
[2024-02-08 06:20] LABS: ALBUMIN 3.5 g/dL (3.2-5.5); ALBUMIN/GLOBULIN RATIO 1.6 (1.0-2.2); BILIRUBIN,TOTAL 3.5 mg/dL (0.2-1.0); CALCIUM 8.1 mg/dL (8.5-10.3); CREATININE 0.8 mg/dL (0.6-1.3); POTASSIUM 3.2 mmol/L (3.5-4.5); TOTAL PROTEIN 5.7 g/dL (6.4-8.9)
--- NOTE | 2024-02-08 08:40 | MRI Report ---
PROCEDURE: Brain WO INDICATIONS: confusion, r/o stroke TECHNIQUE: Noncontrast axial T1 spin echo, axial T2 fast spin echo, sagittal and axial FLAIR, coronal T2 fast sp in echo, axial gradient echo, axial diffusion and ADC through the brain. COMPARISON: CT had dated 02/05/2024. FINDINGS: Image quality: Patient motion artifact. Diffusion-weighted sequence is diagnostic. CSF Spaces: Basal cisterns are patent. No extra-axial fluid collections. Ventricles are normal in size and shape. Brain: No intracranial masses or hemorrhage. Nance/white matter interface is normal. Brainstem appe ars normal. Diffusion-weighted images demonstrate no acute ischemic insult. 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 Age-related volume loss and mild small vessel ischemic change. Normal intravascular flow voids are present. Skull and face: Calvarium has normal marrow signal. Orbits appear normal. Sinuses: Bilateral maxillary sinus mucosal thickening and ethmoid sinus mucosal thickening and spheno id sinus mucosal thickening. Small bilateral air-fluid levels in the maxillary sinuses as well as rig ht sphenoid sinus air-fluid level. IMPRESSION: 1. No acute infarct. 2. 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 3. Acute on chronic sinusitis. Reviewed by: Pernell Jensen MD on 02/08/2024 8:39 AM PDT Approved by: Pernell Jensen MD on 02/08/2024 8:39 AM PDT Station ID: [id number]
[2024-02-08] MEDS: MULTIVITAMIN TABLET PO SCH (11:02)
--- NOTE | 2024-02-08 15:24 | PROVIDER PROGRESS NOTE ---
Subjective - Prog Note Date Prog Note Date: 02/08/24 Prog Note Time: 15:21 - Subjective Pt reports feeling: Improved Subjective: He is intermittently oriented today. this afternoon knows his name and that he is in the hospital, but no insight into why he is here. He has minimal complaints. He has been able to eat today, and continues to have multiple bowel movments per day. He states that he knows he wants to do something today, but he is not sure what. Son John at bedside this afternoon. Daughter Nathalie at bedside yesterday. Obie is at home with COVID infection. Son Kamari is DPOA for healthcare, if not able to make decisions. Discussed POLST at bedside jaelyn Lopez this afternoon. is legal NOK, and would be the person to discuss POLST with, but she is at home with COVID.He is not able to have an advanced care planning discussion today Current Medications - Current Medications Current Medications: Medications Clopidogrel Bisulfate (Clopidogrel 75 Mg Tablet) 75 mg PO DAILY [facility] Last Admin: 02/08/24 08:32 Dose: 75 mg Fluticasone Propionate (Fluticasone Nasal [place]) 2 sprays JOHN DAILY [facility] Last Admin: 02/08/24 08:33 Dose: 2 spray Haloperidol (Haloperidol 5 Mg/Ml Vial) 1 mg IVP Q6H PRN PRN Reason: Agitation Magnesium Oxide (Magnesium Oxide 400 Mg Tablet) 400 mg PO DAILY [facility] Last Admin: 02/08/24 08:32 Dose: 400 mg Multivitamins (Multivitamin Tablet) 1 tab PO DAILYWM [facility] Last Admin: 02/08/24 11:02 Dose: 1 tab Aspirin (Aspirin Chew 81 Mg Tablet) 81 mg PO DAILY [facility] Last Admin: 02/08/24 08:32 Dose: 81 mg Atorvastatin Calcium (Atorvastatin 40 Mg Tablet) 80 mg PO DAILY [facility] Last Admin: 02/08/24 08:33 Dose: 80 mg Carbidopa/Levodopa (Carbidopa/Levodopa 25 Mg/100 Mg Tablet) 1 tab PO QID [facility] Last Admin: 02/08/24 14:16 Dose: 1 tab Cefuroxime Axetil (Cefpodoxime Proxetil 100 Mg Tablet) 200 mg PO BID [facility] Stop: 02/10/24 09:01 Cholecalciferol (Cholecalciferol 25 Mcg Tablet) 50 mcg PO DAILY [facility] Last Admin: 02/08/24 08:32 Dose: 50 mcg Ondansetron HCl (Ondansetron 4 Mg/2 Ml Vial) 4 mg IVP Q6HR PRN PRN Reason: Nausea / Vomiting Objective - Vital Signs/Intake & Output Vital Signs: Vital Signs x48h Temp Pulse Resp BP Pulse Ox 02/08/24 08:10 36.6 C 74 22 166/98 H 97 Intake & Output: Intake & Output 02/05/24 02/06/24 02/07/24 02/08/24 23:59 23:59 23:59 23:59 Intake Total 100 2966.667 2498.333 1410 Output Total 1210 100 Balance 100 3073.504 3781.333 1310 - Objective General Appearance: positive: No acute distress, Alert (opens eyes to voice) Eyes Bilateral: positive: Normal inspection, PERRL, Conjunctivae nml, Other (scleral icterus) ENT: positive: ENT inspection nml Neck: positive: Nml inspection Respiratory: positive: Chest non-tender, No respiratory distress, Breath sounds nml. negative: Rhonchi Cardiovascular: positive: Regular rate & rhythm Abdomen: positive: Non-tender, No distention, Other (hyperactive bowel tones) Skin: positive: Other (mild icterus- appeared more pronounced in the AM, but looks less this afternoon.) Neurologic/Psychiatric: positive: Motor nml, Sensation nml, Disoriented to place (knows "hospital" but not [place] or [place]), Disoriented to time - Lab Results Fish Bones: 02/08/24 05:33 02/08/24 05:33 Other Labs: Lab Results x24hrs 02/08/24 02/08/24 Range/Units 05:33 05:33 WBC 5.6 (4.8-10.8) x10^3/uL RBC 4.05 L (4.70-6.10) 10^6/uL Hgb 12.2 L (14.0-18.0) g/dL Hct 37.3 L (42.0-52.0) % MCV 92.1 (80.0-94.0) fL MCH 30.1 (27.0-31.0) pg MCHC 32.7 (32.0-36.0) g/dL RDW 13.2 (12.0-15.0) % Plt Count 124 L (130-450) 10^3/uL MPV 10.6 (7.4-11.4) fL Neut # (Auto) 3.6 (1.5-6.6) 10^3/uL Lymph # (Auto) 1.1 L (1.5-3.5) 10^3/uL [place] # (Auto) 0.7 (0.0-1.0) 10^3/uL Eos # (Auto) 0.2 (0.0-0.7) 10^3/uL Baso # (Auto) 0.0 (0.0-0.1) 10^3/uL Absolute Nucleated RBC 0.00 x10^3/uL Nucleated RBC % 0.0 /100WBC Sodium 140 (135-145) mmol/L Potassium 3.2 L (3.5-4.5) mmol/L Chloride 111 (101-111) mmol/L Carbon Dioxide 21 (21-32) mmol/L Anion Gap 8.0 (6-13) BUN 11 (6-20) mg/dL Creatinine 0.8 (0.6-1.3) mg/dL Estimated GFR (MDRD) 91 (>89) Glucose 93 (74-104) mg/dL Calcium 8.1 L (8.5-10.3) mg/dL Total Bilirubin 3.5 H (0.2-1.0) mg/dL AST 80 H (10-42) IU/L ALT 31 (10-60) IU/L Alkaline Phosphatase 58 (42-121) IU/L Total Protein 5.7 L (6.4-8.9) g/dL Albumin 3.5 (3.2-5.5) g/dL Globulin 2.2 (2.1-4.2) g/dL Albumin/Globulin Ratio 1.6 (1.0-2.2) ABX Reporting Has patient been on IV antibiotics over the past 48 hours?: Yes Sepsis Event Note (H) - Evaluation Current Stage of Sepsis: Sepsis Possible source of Sepsis: positive: Pulmonary - Sepsis Criteria Sepsis Criteria: Recorded Temperature greater than 38.3C or Less than 36C, Recorded Respiratory Rate greater than 20, LITERACY COACH: altered consciousness (unrelated to primary neuro pathology), MAP less than 65 mmHg, Hepatic: Bilirubin greater than 2mg/dl Assessment/Plan - Problem List (1) Acute metabolic encephalopathy Impression: A code stroke was called in the emergency room. MRI , CT head, CTA head and neck have been completed. No evidence for acute CVA. I suspect his encephalopathy is due to his COVID-19 infection. He is improved from yesterday. (2) COVID-19 Impression: COVID-19 at this point supportive care only. He is not hypoxic. No need for steroids or remdesivir at this time. Continue COVID precautions. He will need to be on precautions through 02/14. This will make any anticipated SNF placement difficult. discussed this w son at bedside today (3) Elevated bilirubin Impression: Laboratory Tests 02/05/24 02/07/24 02/08/24 19:21 09:45 05:33 Total Bilirubin 3.6 H 3.2 H 3.5 H This has been persistent. he does not complain of abdominal pain. he is having loose stools. no abdominal distension. eating meals. Will check RUQUS. I have ordered this today, and will be completed in the AM. Will order conjugated bili. (4) Cerebrovascular disease Impression: The patient has a history of a CVA in the past. Continue aspirin 81 mg daily and atorvastatin 80 mg daily. Acute CVA has been ruled out. See encephalopathy workup. Echocardigram is complete. no significant valvular pathology. Normal LV and RV size and function. (5) Sepsis Impression: The patient has evidence of sepsis likely due to his COVID-19 infection. He has completed a course of Zithromax. I have changed his IV Rocephin to cefpodoxime for an additional 2 days. The patient's white blood cell count remains normal. He has defervesced. SOFA score at time of admit was 3. Continue supportive care for COVID-19 and empiric IV antibiotics as above. (6) Bilateral carotid artery stenosis Impression: CT angiography revealed a 50 to 69% occlusion bilaterally. At this point I do not think there is anything we would do about this acutely in light of his COVID infection. He will need to have surveillance and vascular surgery evaluation as an outpatient. 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 (7) Parkinsons disease Impression: The patient also appears to have underlying Parkinson's dementia. Continue home regimen. yesterday he was not able to swallow, and had some difficulties with tremors yesterday. much improved today with ability to take his Sinemet. Also, mental status is improved from yesterday (8) Hyperlipidemia Impression: Continue atorvastatin 80 mg daily (9) Anemia Impression: Laboratory Tests 02/05/24 02/07/24 02/08/24 19:21 09:45 05:33 Hgb 12.1 L 11.2 L 12.2 L no clinical significance. (10) Ambulatory dysfunction Impression: The patient's is quite concerned regarding the patient's inability to ambulate safely. PT and OT unable to work with him today due to unable to follow skilled cueing for evaluations. He likely will need subacute rehabilitation at discharge prior to transitioning home Disposition: Inpatient hospitalization remains necessary. The patient is still acutely encephalopathic. CVA has been ruled out. He needs supportive care while going through his COVID infection. Timing of disposition will be determined by his clinical course but at this juncture in time I expect him to be in the hospital for the next 24 to 48 hours. Hopefully mental status will improve by tomorrow for therapy evaluations.
[2024-02-08] MEDS: POTASSIUM CHLORIDE 20 MEQ TABLET PO SCH (17:32)
[2024-02-08] MEDS: ONDANSETRON 4 MG/2 ML VIAL IVP PRN (19:08)
[2024-02-08] MEDS: CEFPODOXIME PROXETIL 100 MG TABLET PO SCH (20:30)
[2024-02-09] MEDS: hydrALAZINE 25 MG TABLET PO STA (01:33)
[2024-02-09 05:34] LABS: BASOPHILS % (AUTO) 0.2 %; EOSINOPHILS # (AUTO) 0.2 10^3/uL (0.0-0.7); EOSINOPHILS % (AUTO) 3.4 %; HCT - HEMATOCRIT 37.4 % (42.0-52.0); HGB - HEMOGLOBIN 12.6 g/dL (14.0-18.0); LYMPHOCYTES # (AUTO) 1.2 10^3/uL (1.5-3.5); LYMPHOCYTES % (AUTO) 18.1 %; MEAN CORPUSCULAR HEMOGLOBIN 30.5 pg (27.0-31.0); MEAN CORPUSCULAR HGB CONC 33.7 g/dL (32.0-36.0); MEAN CORPUSCULAR VOLUME 90.6 fL (80.0-94.0); MONOCYTES # (AUTO) 0.6 10^3/uL (0.0-1.0); MONOCYTES % (AUTO) 9.7 %; NEUTROPHILS # (AUTO) 4.4 10^3/uL (1.5-6.6); NEUTROPHILS % (AUTO) 68.4 %; PLT - PLATELET COUNT 147 10^3/uL (130-450); RED BLOOD COUNT 4.13 10^6/uL (4.70-6.10); RED CELL DISTRIBUTION WIDTH 13.3 % (12.0-15.0); WHITE BLOOD COUNT 6.5 x10^3/uL (4.8-10.8)
[2024-02-09 05:56] LABS: ALBUMIN 3.5 g/dL (3.2-5.5); ALBUMIN/GLOBULIN RATIO 1.5 (1.0-2.2); BILIRUBIN,TOTAL 3.4 mg/dL (0.2-1.0); CALCIUM 8.4 mg/dL (8.5-10.3); CREATININE 0.7 mg/dL (0.6-1.3); POTASSIUM 3.1 mmol/L (3.5-4.5); TOTAL PROTEIN 5.8 g/dL (6.4-8.9)
--- NOTE | 2024-02-09 10:46 | Ultrasound Report ---
PROCEDURE: Abdomen Limited INDICATIONS: elevated bili, diarrhea TECHNIQUE: Real-time focused scanning was performed of the abdomen, with image documentation. COMPARISONS: None. FINDINGS: Liver: Increased liver echogenicity, commonly mild hepatic steatosis. Gallbladder: No gallstones, sludge, wall thickening or pericholecystic edema. Biliary ducts: Intrahepatic bile ducts are non-dilated. Extrahepatic bile duct caliber measures 6 m m. Normal is 6-7 mm or less in diameter, or 10 mm or less post-cholecystectomy. Pancreas: Not well visualized due to overlying bowel gas. Right kidney: Normal in size and echotexture. Right kidney measures 10.5 cm long. No hydronephrosis or nephrolithiasis. No solid masses. No complex renal cystic lesions which require follow-up. Miscellaneous: No free abdominal fluid. IMPRESSION: Findings compatible with hepatic steatosis or sequela chronic hepatocellular disorder. No sonographic evidence for biliary obstruction. Reviewed by: Phillip Espino MD on 02/09/2024 10:45 AM PDT Approved by: Phillip Espino MD on 02/09/2024 10:45 AM PDT Station ID: [id number]
[2024-02-09] MEDS: PSYLLIUM PACKET PO SCH (12:04)
--- NOTE | 2024-02-09 14:25 | PROVIDER PROGRESS NOTE ---
Subjective - Prog Note Date Prog Note Date: 02/09/24 Prog Note Time: 14:25 - Subjective Pt reports feeling: Improved Objective - Vital Signs/Intake & Output Vital Signs: Vital Signs x48h Temp Pulse Resp BP Pulse Ox 02/09/24 12:12 36.4 C L 59 L 20 155/76 H 96 02/09/24 08:00 36.6 C 64 20 133/72 H 95 Intake & Output: Intake & Output 02/06/24 02/07/24 02/08/24 02/09/24 23:59 23:59 23:59 23:59 Intake Total 2966.667 2498.333 1880 700 Output Total 1210 100 200 Balance 4139.157 2218.333 1780 500 - Lab Results Fish Bones: 02/09/24 05:20 02/09/24 05:20 Other Labs: Lab Results x24hrs 02/09/24 02/09/24 02/09/24 Range/Units 05:20 05:20 05:20 WBC 6.5 (4.8-10.8) x10^3/uL RBC 4.13 L (4.70-6.10) 10^6/uL Hgb 12.6 L (14.0-18.0) g/dL Hct 37.4 L (42.0-52.0) % MCV 90.6 (80.0-94.0) fL MCH 30.5 (27.0-31.0) pg MCHC 33.7 (32.0-36.0) g/dL RDW 13.3 (12.0-15.0) % Plt Count 147 (130-450) 10^3/uL MPV 10.0 (7.4-11.4) fL Neut # (Auto) 4.4 (1.5-6.6) 10^3/uL Lymph # (Auto) 1.2 L (1.5-3.5) 10^3/uL [place] # (Auto) 0.6 (0.0-1.0) 10^3/uL Eos # (Auto) 0.2 (0.0-0.7) 10^3/uL Baso # (Auto) 0.0 (0.0-0.1) 10^3/uL Absolute Nucleated RBC 0.00 x10^3/uL Nucleated RBC % 0.0 /100WBC Sodium 141 (135-145) mmol/L Potassium 3.1 L (3.5-4.5) mmol/L Chloride 111 (101-111) mmol/L Carbon Dioxide 23 (21-32) mmol/L Anion Gap 7.0 (6-13) BUN 14 (6-20) mg/dL Creatinine 0.7 (0.6-1.3) mg/dL Estimated GFR (MDRD) 106 (>89) Glucose 110 H (74-104) mg/dL Calcium 8.4 L (8.5-10.3) mg/dL Total Bilirubin 3.4 H (0.2-1.0) mg/dL Direct Bilirubin 0.55 H (0.03-0.18) mg/dL AST 72 H (10-42) IU/L ALT 21 (10-60) IU/L Alkaline Phosphatase 58 (42-121) IU/L Total Protein 5.8 L (6.4-8.9) g/dL Albumin 3.5 (3.2-5.5) g/dL Globulin 2.3 (2.1-4.2) g/dL Albumin/Globulin Ratio 1.5 (1.0-2.2) Sepsis Event Note (H) - Evaluation Current Stage of Sepsis: Sepsis Possible source of Sepsis: positive: Pulmonary - Sepsis Criteria Sepsis Criteria: Recorded Temperature greater than 38.3C or Less than 36C, Recorded Respiratory Rate greater than 20, OUTCOMES MANAGER: altered consciousness (unrelated to primary neuro pathology), MAP less than 65 mmHg, Hepatic: Bilirubin greater than 2mg/dl
--- NOTE | 2024-02-09 15:02 | PROVIDER PROGRESS NOTE ---
Subjective - Prog Note Date Prog Note Date: 02/09/24 Prog Note Time: 14:47 - Subjective Pt reports feeling: Improved Subjective: knows that he is in the hospital in [place]. not oriented to time today. has some insight into his medical situation today. Have discussed POLST with patient's son John and via telephone with Obie who has COVID and is unable to come to the hospital. Current Medications - Current Medications Current Medications: Medications Carbidopa/Levodopa (Carbidopa/Levodopa 25 Mg/100 Mg Tablet) 1 tab PO QID [facility] Last Admin: 02/09/24 12:09 Dose: 1 tab Cholecalciferol (Cholecalciferol 25 Mcg Tablet) 50 mcg PO DAILY [facility] Last Admin: 02/09/24 08:04 Dose: 50 mcg Clopidogrel Bisulfate (Clopidogrel 75 Mg Tablet) 75 mg PO DAILY [facility] Last Admin: 02/09/24 08:04 Dose: 75 mg Multivitamins (Multivitamin Tablet) 1 tab PO DAILYWM [facility] Last Admin: 02/09/24 08:04 Dose: 1 tab Ondansetron HCl (Ondansetron 4 Mg/2 Ml Vial) 4 mg IVP Q6HR PRN PRN Reason: Nausea / Vomiting Last Admin: 02/08/24 19:08 Dose: 4 mg Aspirin (Aspirin Chew 81 Mg Tablet) 81 mg PO DAILY [facility] Last Admin: 02/08/24 08:32 Dose: 81 mg Atorvastatin Calcium (Atorvastatin 40 Mg Tablet) 80 mg PO DAILY [facility] Last Admin: 02/09/24 08:03 Dose: 80 mg Cefuroxime Axetil (Cefpodoxime Proxetil 100 Mg Tablet) 200 mg PO BID [facility] Stop: 02/10/24 09:01 Last Admin: 02/09/24 08:03 Dose: 200 mg Fluticasone Propionate (Fluticasone Nasal [place]) 2 sprays JOHN DAILY [facility] Last Admin: 02/09/24 08:05 Dose: 2 spray Haloperidol (Haloperidol 5 Mg/Ml Vial) 1 mg IVP Q6H PRN PRN Reason: Agitation Magnesium Oxide (Magnesium Oxide 400 Mg Tablet) 400 mg PO DAILY [facility] Last Admin: 02/09/24 08:03 Dose: 400 mg Multi-Ingredient Ointment (Zinc Oxide 20% Oint 30 Gm Tube) 1 applic TOP PRN PRN PRN Reason: Skin Care Last Admin: 02/08/24 20:28 Dose: 1 applic Patient Own Medication (Patient Own Med) 2 each PO BID [facility] Last Admin: 02/09/24 08:04 Dose: 2 each Patient Own Medication (Patient Own Med) 1 each PO QPM [facility] Last Admin: 02/08/24 20:30 Dose: 1 each Polyethylene Glycol (Polyethylene Glycol 3350 17 Gm Packet) 17 gm PO DAILY [facility] Last Admin: 02/09/24 08:04 Dose: Not Given Potassium Chloride (Potassium Chloride 20 Meq Tablet) 20 meq PO DAILYWM [facility] Last Admin: 02/09/24 08:04 Dose: 20 meq Psyllium Hydrophilic Mucilloid (Psyllium Packet) 1 packet PO DAILY [facility] Last Admin: 02/09/24 12:04 Dose: 1 packet Objective - Vital Signs/Intake & Output Vital Signs: Vital Signs x48h Temp Pulse Resp BP Pulse Ox 02/09/24 12:12 36.4 C L 59 L 20 155/76 H 96 02/09/24 08:00 36.6 C 64 20 133/72 H 95 Intake & Output: Intake & Output 02/06/24 02/07/24 02/08/24 02/09/24 23:59 23:59 23:59 23:59 Intake Total 2966.667 2498.333 1880 700 Output Total 1210 100 200 Balance 9282.685 0606.333 1780 500 - Objective General Appearance: positive: No acute distress, Alert Eyes Bilateral: positive: Normal inspection Eyes: OS Scleral icterus (less severe) ENT: positive: ENT inspection nml Neck: positive: Nml inspection Respiratory: positive: Chest non-tender, No respiratory distress, Breath sounds nml Cardiovascular: positive: Regular rate & rhythm Abdomen: negative: Tenderness Back: positive: Nml inspection Skin: positive: Color nml Extremities: positive: Non-tender, No pedal edema Neurologic/Psychiatric: positive: Disoriented to time - Lab Results Fish Bones: 02/09/24 05:20 02/09/24 05:20 Other Labs: Lab Results x24hrs 02/09/24 02/09/24 02/09/24 Range/Units 05:20 05:20 05:20 WBC 6.5 (4.8-10.8) x10^3/uL RBC 4.13 L (4.70-6.10) 10^6/uL Hgb 12.6 L (14.0-18.0) g/dL Hct 37.4 L (42.0-52.0) % MCV 90.6 (80.0-94.0) fL MCH 30.5 (27.0-31.0) pg MCHC 33.7 (32.0-36.0) g/dL RDW 13.3 (12.0-15.0) % Plt Count 147 (130-450) 10^3/uL MPV 10.0 (7.4-11.4) fL Neut # (Auto) 4.4 (1.5-6.6) 10^3/uL Lymph # (Auto) 1.2 L (1.5-3.5) 10^3/uL [place] # (Auto) 0.6 (0.0-1.0) 10^3/uL Eos # (Auto) 0.2 (0.0-0.7) 10^3/uL Baso # (Auto) 0.0 (0.0-0.1) 10^3/uL Absolute Nucleated RBC 0.00 x10^3/uL Nucleated RBC % 0.0 /100WBC Sodium 141 (135-145) mmol/L Potassium 3.1 L (3.5-4.5) mmol/L Chloride 111 (101-111) mmol/L Carbon Dioxide 23 (21-32) mmol/L Anion Gap 7.0 (6-13) BUN 14 (6-20) mg/dL Creatinine 0.7 (0.6-1.3) mg/dL Estimated GFR (MDRD) 106 (>89) Glucose 110 H (74-104) mg/dL Calcium 8.4 L (8.5-10.3) mg/dL Total Bilirubin 3.4 H (0.2-1.0) mg/dL Direct Bilirubin 0.55 H (0.03-0.18) mg/dL AST 72 H (10-42) IU/L ALT 21 (10-60) IU/L Alkaline Phosphatase 58 (42-121) IU/L Total Protein 5.8 L (6.4-8.9) g/dL Albumin 3.5 (3.2-5.5) g/dL Globulin 2.3 (2.1-4.2) g/dL Albumin/Globulin Ratio 1.5 (1.0-2.2) ABX Reporting Has patient been on IV antibiotics over the past 48 hours?: Yes Sepsis Event Note (H) - Evaluation Current Stage of Sepsis: Sepsis Possible source of Sepsis: positive: Pulmonary - Sepsis Criteria Sepsis Criteria: Recorded Temperature greater than 38.3C or Less than 36C, Recorded Respiratory Rate greater than 20, PRINTED CIRCUIT BOARD DESIGNER: altered consciousness (unrelated to primary neuro pathology), MAP less than 65 mmHg, Hepatic: Bilirubin greater than 2mg/dl Assessment/Plan - Problem List (1) Acute metabolic encephalopathy Impression: A code stroke was called in the emergency room. MRI , CT head, CTA head and neck have been completed. No evidence for acute CVA. I suspect his encephalopathy is due to his COVID-19 infection. He continues to improve every day with his mental status. (2) COVID-19 Impression: COVID-19 at this point supportive care only. He is not hypoxic. No need for steroids or remdesivir at this time. Continue COVID precautions. He will need to be on precautions through 02/14. Therapy notes from today reviewed. SNF recommended. Patient and son agree that this is a good idea. Patient [facility], and apparently social work has instructed family that this would be feasible. (3) Elevated bilirubin Impression: Laboratory Tests 02/09/24 02/09/24 05:20 05:20 Total Bilirubin 3.4 H Direct Bilirubin 0.55 H This has been persistent. he does not complain of abdominal pain. he is having loose stools. no abdominal distension. eating meals. RUQUS is negative except for hepatic steatosis. with his Parkinson's dementia, and limited life expectancy, will not further pursue. (4) Hypokalemia. Laboratory Tests 02/07/24 02/08/24 02/09/24 09:45 05:33 05:20 Potassium 3.2 L 3.2 L 3.1 L I have ordered oral replacement yesterday, I have increased from 20mEq daily to 20mEq BID possibly due to loose stools. (5) Diarrhea Since admission. Thought to be due to covid, and is slowing down with only one stool today. I have ordered stool studies. he struggles with constipation at home. I have ordered metamucil to help bulk up his stools. (4) Cerebrovascular disease Impression: The patient has a history of a CVA in the past. Continue aspirin 81 mg daily and atorvastatin 80 mg daily. Acute CVA has been ruled out. See encephalopathy workup. Echocardigram is complete. no significant valvular pathology. Normal LV and RV size and function. (5) Sepsis Impression: The patient has evidence of sepsis likely due to his COVID-19 infection. He has completed a course of Zithromax. I have changed his IV Rocephin to cefpodoxime to complete 5 days of treatment. The patient's white blood cell count remains normal. He has defervesced. SOFA score at time of admit was 3. Continue supportive care for COVID-19 and finish 5 days of empiric abx. (6) Bilateral carotid artery stenosis Impression: CT angiography revealed a 50 to 69% occlusion bilaterally. At this point I do not think there is anything we would do about this acutely in light of his COVID infection. He will need to have surveillance and vascular surgery evaluation as an outpatient. 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 (7) Parkinsons disease Impression: The patient also appears to have underlying Parkinson's dementia. Continue home regimen. he has been able to take his Sinemet. His mental status is improved on a daily basis. (8) Hyperlipidemia Impression: Continue atorvastatin 80 mg daily (9) Anemia Impression: Laboratory Tests 02/05/24 02/07/24 02/08/24 19:21 09:45 05:33 Hgb 12.1 L 11.2 L 12.2 L 02/09/24 05:20 Hgb 12.6 L no clinical significance. (10) Ambulatory dysfunction Impression: The patient's is quite concerned regarding the patient's inability to ambulate safely. He has been able to work with physical therapy and occupational therapy today. Recommendation is for halfway rehab. Will continue to work on placement. He will come off isolation on 02/14. Disposition: His encephalopathy is improving on a daily basis. He is medically stable today, but will be held due to his COVID status.
--- NOTE | 2024-02-09 17:41 | ADVANCE CARE PLANNING NOTE ---
Advance Care Planning - Planning Encounter Date: 02/09/24 Time: 17:40 Purpose: determine goals of care with this recent health setback Parties in Attendance: son Freddy, patient Kris. Obie is on the phone. She is at home with active COVID infection, but doing well Decisional Capacity of the Patient: his mental status is improving daily, but he is not oriented x 3. Beginning to have some insight into his situation, but does not seem to understand the eventual terminal nature of his Parkinson's disease - Diagnosis for Encounter (1) Acute metabolic encephalopathy Summary: Acute CVA has been ruled out. his encephalopathy is improving, but has baseline Parkinson's dementia - Encounter Subjective/Patient's Story: Kris has been to Obie for 66 years. They have 3 children who are adults. Their children are living in the [facility] and are involved in the care of their parents. Kris has had Parkinson's for some time and is beginning to decline with some dementia but has been able to remain at home. His has been able to meet his care needs. Objective/Medical Story: Kris had an acute decline and change in his mental status. It became evident that this was due to his infection with COVID. He has not had any hypoxia with his COVID infection. He has had loose stools. Acute CVA has been ruled out. His mental status is improving but he is significantly debilitated at this time. Goals of Care: John Obie, Kris and I spent some time together with Obie joining via phone today. The initial thought from the family was that Kris should have CPR but have selective treatment. We had to clear up this misunderstanding. We also reviewed the possible outcomes of cardiopulmonary resuscitation with the family, none of them good. In the event that Kris survived an episode of cardiopulmonary resuscitation it is unlikely that he would ever live independently again. In discussing his desires for his care and his remaining life to live, he wants to be in his home and able to interact with his family. He and his family agree that with this as his goal probably the best option would be to do no CPR with selective treatment. Plan: Kris is not completely able to make his own medical decisions at this time. Obie is his decision maker with his son Kamari being his second in line medical decision maker. Obie will complete the POLST at home and sign it and I will review this with her again on the phone tomorrow. Code Status: Do Not Attempt Resuscitation Time spent on advance care plannin min
[2024-02-09] MEDS: POTASSIUM CHLORIDE 20 MEQ TABLET PO SCH (17:47)
--- NOTE | 2024-02-10 11:34 | PROVIDER PROGRESS NOTE ---
Subjective - Prog Note Date Prog Note Date: 02/10/24 Prog Note Time: 11:34 - Subjective Pt reports feeling: No change Subjective: This AM, patient was not oriented. was exhibiting some signs of paranoia this morning. This afternoon, he is more oriented. recognizes his family, daughter and son in law at the bedside. He has minimal complaints. no cough. continues to have loose stools, but he does not complain of this- he is not aware of this Current Medications - Current Medications Current Medications: Medications Potassium Chloride (Potassium Chloride 20 Meq Tablet) 20 meq PO BIDWM [facility] Last Admin: 02/10/24 08:16 Dose: 20 meq Aspirin (Aspirin Chew 81 Mg Tablet) 81 mg PO DAILY [facility] Last Admin: 02/10/24 08:16 Dose: 81 mg Atorvastatin Calcium (Atorvastatin 40 Mg Tablet) 80 mg PO DAILY [facility] Last Admin: 02/10/24 08:17 Dose: 80 mg Carbidopa/Levodopa (Carbidopa/Levodopa 25 Mg/100 Mg Tablet) 1 tab PO QID [facility] Last Admin: 02/10/24 13:22 Dose: 1 tab Cholecalciferol (Cholecalciferol 25 Mcg Tablet) 50 mcg PO DAILY [facility] Last Admin: 02/10/24 08:17 Dose: 50 mcg Clopidogrel Bisulfate (Clopidogrel 75 Mg Tablet) 75 mg PO DAILY [facility] Last Admin: 02/10/24 08:17 Dose: 75 mg Diphenoxylate HCl/Atropine (Diphenox/Atropine 2.5/0.025 Mg Tablet) 1 tab PO QID PRN PRN Reason: Diarrhea Fluticasone Propionate (Fluticasone Nasal [place]) 2 sprays JOHN DAILY [facility] Last Admin: 02/10/24 08:15 Dose: 2 spray Haloperidol (Haloperidol 5 Mg/Ml Vial) 1 mg IVP Q6H PRN PRN Reason: Agitation Magnesium Oxide (Magnesium Oxide 400 Mg Tablet) 400 mg PO DAILY [facility] Last Admin: 02/10/24 08:16 Dose: 400 mg Multivitamins (Multivitamin Tablet) 1 tab PO DAILYWM [facility] Last Admin: 02/10/24 08:17 Dose: 1 tab Ondansetron HCl (Ondansetron 4 Mg/2 Ml Vial) 4 mg IVP Q6HR PRN PRN Reason: Nausea / Vomiting Last Admin: 02/08/24 19:08 Dose: 4 mg Patient Own Medication (Patient Own Med) 2 each PO BID [facility] Last Admin: 02/10/24 08:15 Dose: 2 each Patient Own Medication (Patient Own Med) 1 each PO QPM [facility] Last Admin: 02/09/24 20:34 Dose: 1 each Polyethylene Glycol (Polyethylene Glycol 3350 17 Gm Packet) 17 gm PO DAILY [facility] Last Admin: 02/10/24 08:18 Dose: Not Given Psyllium Hydrophilic Mucilloid (Psyllium Packet) 1 packet PO DAILY [facility] Last Admin: 02/10/24 08:18 Dose: Not Given Objective - Vital Signs/Intake & Output Vital Signs: Vital Signs x48h Temp Pulse Resp BP Pulse Ox 02/10/24 08:00 36.5 C 71 18 156/86 H 94 Intake & Output: Intake & Output 02/07/24 02/08/24 02/09/24 02/10/24 23:59 23:59 23:59 23:59 Intake Total 2498.333 1880 970 120 Output Total 100 200 Balance 2498.333 1780 770 120 - Objective General Appearance: positive: No acute distress, Alert Eyes Bilateral: positive: Normal inspection ENT: positive: ENT inspection nml Neck: positive: Nml inspection Respiratory: positive: Chest non-tender, No respiratory distress, Breath sounds nml Cardiovascular: positive: Regular rate & rhythm Abdomen: positive: Nml bowel sounds, No distention Skin: positive: Color nml Extremities: positive: Non-tender Neurologic/Psychiatric: positive: Oriented x3 - Lab Results Fish Bones: 02/09/24 05:20 02/09/24 05:20 Other Labs: Lab Results x24hrs 02/09/24 Range/Units 17:30 Stl C. diff Tox B Gene NEGATIVE (NEGATIVE) ABX Reporting Has patient been on IV antibiotics over the past 48 hours?: No Sepsis Event Note (H) - Evaluation Current Stage of Sepsis: Sepsis Possible source of Sepsis: positive: Pulmonary - Sepsis Criteria Sepsis Criteria: Recorded Temperature greater than 38.3C or Less than 36C, Recorded Respiratory Rate greater than 20, INSULATION BLOWER: altered consciousness (unrelated to primary neuro pathology), MAP less than 65 mmHg, Hepatic: Bilirubin greater than 2mg/dl Assessment/Plan - Problem List (1) Acute metabolic encephalopathy Impression: A code stroke was called in the emergency room. MRI , CT head, CTA head and neck have been completed. No evidence for acute CVA. I suspect his encephalopathy is due to his COVID-19 infection. His mental status is waxing and waning (2) COVID-19 Impression: COVID-19 at this point supportive care only. He is not hypoxic. No need for steroids or remdesivir at this time. Continue COVID precautions. He will need to be on precautions through 02/14. Therapy has recommended SNF. Social work has confirmed that [facility] can likely accept patient on 02/14. Patient and son agree that this is a good idea. Patient would like to go to [facility]. (3) Elevated bilirubin Impression: Laboratory Tests 02/09/24 02/09/24 05:20 05:20 Total Bilirubin 3.4 H Direct Bilirubin 0.55 H This has been persistent. he does not complain of abdominal pain. he is having loose stools. no abdominal distension. eating meals. RUQUS is negative except for hepatic steatosis. with his Parkinson's dementia, and limited life expectancy, will not further pursue. (4) Hypokalemia. Laboratory Tests 02/07/24 02/08/24 02/09/24 09:45 05:33 05:20 Potassium 3.2 L 3.2 L 3.1 L He is getting daily oral replacement. I have ordered BMP for AM (5) Diarrhea Since admission. Thought to be due to covid, and is slowing down with only one stool today. Stool negative for C diff. I have ordered lomotil today. he struggles with constipation at home. I have ordered metamucil to help bulk up his stools. (4) Cerebrovascular disease Impression: The patient has a history of a CVA in the past. Continue aspirin 81 mg daily and atorvastatin 80 mg daily. Acute CVA has been ruled out. See encephalopathy workup. Echocardigram is complete. no significant valvular pathology. Normal LV and RV size and function. (5) Sepsis Impression: Resolved. The patient had evidence of sepsis likely due to his COVID-19 infection. He has completed a course of Zithromax. I have changed his IV Rocephin to cefpodoxime to complete 5 days of treatment. He has defervesced. SOFA score at time of admit was 3. Continue supportive care for COVID-19 and finish 5 days of empiric abx. (6) Bilateral carotid artery stenosis Impression: CT angiography revealed a 50 to 69% occlusion bilaterally. At this point I do not think there is anything we would do about this acutely in light of his COVID infection. He will need to have surveillance and vascular surgery evaluation as an outpatient. 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 (7) Parkinsons disease Impression: The patient also appears to have underlying Parkinson's dementia. Continue home regimen. he has been able to take his Sinemet. His mental status is waxing and waning. (8) Hyperlipidemia Impression: Continue atorvastatin 80 mg daily (9) Anemia Impression: Laboratory Tests 02/05/24 02/07/24 02/08/24 19:21 09:45 05:33 Hgb 12.1 L 11.2 L 12.2 L 02/09/24 05:20 Hgb 12.6 L no clinical significance. (10) Ambulatory dysfunction Impression: The patient's is quite concerned regarding the patient's inability to ambulate safely. He has been able to work with physical therapy and occupational therapy today. Recommendation is for custodial rehab. Will continue to work on placement. He will come off isolation on 02/14. Disposition: His encephalopathy is improving on a daily basis. He is medically stable today, but will be held due to his COVID status.
[2024-02-10] MEDS ORDERED: DIPHENOX/ATROPINE 2.5/0.025 MG TABLET PO PRN (11:35)
[2024-02-11 13:02] LABS: BASOPHILS % (AUTO) 0.3 %; EOSINOPHILS # (AUTO) 0.3 10^3/uL (0.0-0.7); EOSINOPHILS % (AUTO) 2.8 %; HCT - HEMATOCRIT 37.7 % (42.0-52.0); HGB - HEMOGLOBIN 12.3 g/dL (14.0-18.0); LYMPHOCYTES # (AUTO) 1.1 10^3/uL (1.5-3.5); LYMPHOCYTES % (AUTO) 12.2 %; MEAN CORPUSCULAR HEMOGLOBIN 30.1 pg (27.0-31.0); MEAN CORPUSCULAR HGB CONC 32.6 g/dL (32.0-36.0); MEAN CORPUSCULAR VOLUME 92.2 fL (80.0-94.0); MEAN PLATELET VOLUME 9.7 fL (7.4-11.4); MONOCYTES # (AUTO) 0.7 10^3/uL (0.0-1.0); MONOCYTES % (AUTO) 8.2 %; NEUTROPHILS # (AUTO) 6.8 10^3/uL (1.5-6.6); NEUTROPHILS % (AUTO) 76.2 %; PLT - PLATELET COUNT 151 10^3/uL (130-450); RED BLOOD COUNT 4.09 10^6/uL (4.70-6.10); RED CELL DISTRIBUTION WIDTH 13.5 % (12.0-15.0)
[2024-02-11 13:14] LABS: CALCIUM 9.1 mg/dL (8.5-10.3); CREATININE 0.8 mg/dL (0.6-1.3); POTASSIUM 3.8 mmol/L (3.5-4.5)
--- NOTE | 2024-02-11 13:49 | PROVIDER PROGRESS NOTE ---
Subjective - Prog Note Date Prog Note Date: 02/11/24 Prog Note Time: 13:48 - Subjective Pt reports feeling: Improved Subjective: Seen this afternoon with his family. He is able to recognize his son Kamari who is at the bedside. He states he is feeling fine. He says he is just being lazy. Current Medications - Current Medications Current Medications: Medications Clopidogrel Bisulfate (Clopidogrel 75 Mg Tablet) 75 mg PO DAILY [facility] Last Admin: 02/11/24 09:18 Dose: 75 mg Patient Own Medication (Patient Own Med) 2 each PO BID [facility] Last Admin: 02/11/24 09:19 Dose: 2 each Diphenoxylate HCl/Atropine (Diphenox/Atropine 2.5/0.025 Mg Tablet) 1 tab PO QID PRN PRN Reason: Diarrhea Fluticasone Propionate (Fluticasone Nasal [place]) 2 sprays JOHN DAILY [facility] Last Admin: 02/11/24 09:19 Dose: 2 spray Haloperidol (Haloperidol 5 Mg/Ml Vial) 1 mg IVP Q6H PRN PRN Reason: Agitation Magnesium Oxide (Magnesium Oxide 400 Mg Tablet) 400 mg PO DAILY [facility] Last Admin: 02/11/24 09:18 Dose: 400 mg Multi-Ingredient Ointment (Zinc Oxide 20% Oint 30 Gm Tube) 1 applic TOP PRN PRN PRN Reason: Skin Care Last Admin: 02/11/24 06:42 Dose: 1 applic Aspirin (Aspirin Chew 81 Mg Tablet) 81 mg PO DAILY [facility] Last Admin: 02/11/24 09:18 Dose: 81 mg Atorvastatin Calcium (Atorvastatin 40 Mg Tablet) 80 mg PO DAILY [facility] Last Admin: 02/11/24 09:19 Dose: 80 mg Carbidopa/Levodopa (Carbidopa/Levodopa 25 Mg/100 Mg Tablet) 1 tab PO QID [facility] Last Admin: 02/11/24 17:34 Dose: 1 tab Cholecalciferol (Cholecalciferol 25 Mcg Tablet) 50 mcg PO DAILY [facility] Last Admin: 02/11/24 09:18 Dose: 50 mcg Multivitamins (Multivitamin Tablet) 1 tab PO DAILYWM [facility] Last Admin: 02/11/24 09:18 Dose: 1 tab Ondansetron HCl (Ondansetron 4 Mg/2 Ml Vial) 4 mg IVP Q6HR PRN PRN Reason: Nausea / Vomiting Last Admin: 02/08/24 19:08 Dose: 4 mg Polyethylene Glycol (Polyethylene Glycol 3350 17 Gm Packet) 17 gm PO DAILY [facility] Last Admin: 02/11/24 09:19 Dose: Not Given Potassium Chloride (Potassium Chloride 20 Meq Tablet) 20 meq PO BIDWM [facility] Last Admin: 02/11/24 17:34 Dose: 20 meq Psyllium Hydrophilic Mucilloid (Psyllium Packet) 1 packet PO DAILY [facility] Last Admin: 02/11/24 09:19 Dose: 1 packet Objective - Vital Signs/Intake & Output Vital Signs: Vital Signs x48h Temp Pulse Resp BP Pulse Ox 02/11/24 07:50 36.4 C L 60 20 178/88 H 94 Intake & Output: Intake & Output 02/08/24 02/09/24 02/10/24 02/11/24 23:59 23:59 23:59 23:59 Intake Total 1880 970 850 360 Output Total 100 200 Balance 1780 770 850 360 - Objective General Appearance: positive: No acute distress, Alert Eyes Bilateral: positive: Normal inspection ENT: positive: ENT inspection nml Neck: positive: Nml inspection Respiratory: positive: Chest non-tender, No respiratory distress, Breath sounds nml Cardiovascular: positive: Regular rate & rhythm Abdomen: positive: Non-tender, No distention Back: positive: Nml inspection Skin: positive: Color nml Extremities: positive: Non-tender, No pedal edema Neurologic/Psychiatric: positive: Disoriented to place, Disoriented to time - Lab Results Fish Bones: 02/11/24 12:54 02/11/24 12:54 Other Labs: Lab Results x24hrs 02/11/24 02/11/24 Range/Units 12:54 12:54 WBC 9.0 (4.8-10.8) x10^3/uL RBC 4.09 L (4.70-6.10) 10^6/uL Hgb 12.3 L (14.0-18.0) g/dL Hct 37.7 L (42.0-52.0) % MCV 92.2 (80.0-94.0) fL MCH 30.1 (27.0-31.0) pg MCHC 32.6 (32.0-36.0) g/dL RDW 13.5 (12.0-15.0) % Plt Count 151 (130-450) 10^3/uL MPV 9.7 (7.4-11.4) fL Neut # (Auto) 6.8 H (1.5-6.6) 10^3/uL Lymph # (Auto) 1.1 L (1.5-3.5) 10^3/uL [place] # (Auto) 0.7 (0.0-1.0) 10^3/uL Eos # (Auto) 0.3 (0.0-0.7) 10^3/uL Baso # (Auto) 0.0 (0.0-0.1) 10^3/uL Absolute Nucleated RBC 0.00 x10^3/uL Nucleated RBC % 0.0 /100WBC Sodium 144 (135-145) mmol/L Potassium 3.8 (3.5-4.5) mmol/L Chloride 111 (101-111) mmol/L Carbon Dioxide 26 (21-32) mmol/L Anion Gap 7.0 (6-13) BUN 22 H (6-20) mg/dL Creatinine 0.8 (0.6-1.3) mg/dL Estimated GFR (MDRD) 91 (>89) Glucose 127 H (74-104) mg/dL Calcium 9.1 (8.5-10.3) mg/dL Sepsis Event Note (H) - Evaluation Current Stage of Sepsis: Sepsis Possible source of Sepsis: positive: Pulmonary - Sepsis Criteria Sepsis Criteria: Recorded Temperature greater than 38.3C or Less than 36C, Recorded Respiratory Rate greater than 20, CORRECTIONAL SUPERVISOR: altered consciousness (unrelated to primary neuro pathology), MAP less than 65 mmHg, Hepatic: Bilirubin greater than 2mg/dl Assessment/Plan - Problem List (1) Acute metabolic encephalopathy Impression: A code stroke was called in the emergency room. MRI , CT head, CTA head and neck have been completed. No evidence for acute CVA. I suspect his encephalopathy is due to his COVID-19 infection. His mental status is waxing and waning. from a mental status standpoint, I think he may be back to his baseline (2) COVID-19 Impression: COVID-19 at this point supportive care only. He is not hypoxic. No need for steroids or remdesivir at this time. Continue COVID precautions. He will need to be on precautions through 02/14. Therapy has recommended SNF. Social work has confirmed that [facility] can likely accept patient on 02/14. Patient and son agree that this is a good idea. Patient would like to go to [facility] [place], [facility]. (3) Elevated bilirubin Impression: Laboratory Tests 02/09/24 02/09/24 05:20 05:20 Total Bilirubin 3.4 H Direct Bilirubin 0.55 H This has been persistent. he does not complain of abdominal pain. he is having loose stools. no abdominal distension. eating meals. RUQUS is negative except for hepatic steatosis. with his Parkinson's dementia, and limited life expectancy, will not further pursue. (4) Hypokalemia. Laboratory Tests 02/07/24 02/08/24 02/09/24 09:45 05:33 05:20 Potassium 3.2 L 3.2 L 3.1 L 02/11/24 12:54 Potassium 3.8 He is getting daily oral replacement. I have ordered BMP for AM (5) Diarrhea Since admission. Thought to be due to covid. Stool negative for C diff. I have ordered lomotil today. he struggles with constipation at home. I have ordered metamucil to help bulk up his stools. (4) Cerebrovascular disease Impression: The patient has a history of a CVA in the past. Continue aspirin 81 mg daily and atorvastatin 80 mg daily. Acute CVA has been ruled out. See encephalopathy workup. Echocardigram is complete. no significant valvular pathology. Normal LV and RV size and function. (5) Sepsis Impression: Resolved. The patient had evidence of sepsis likely due to his COVID-19 infection. He has completed a course of Zithromax. He has completed 5 days of cephalosporin therapy. He has defervesced. SOFA score at time of admit was 3. Continue supportive care for COVID-19 and finish 5 days of empiric abx. (6) Bilateral carotid artery stenosis Impression: CT angiography revealed a 50 to 69% occlusion bilaterally. At this point I do not think there is anything we would do about this acutely in light of his COVID infection. He will need to have surveillance and vascular surgery evaluation as an outpatient. 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 (7) Parkinsons disease Impression: The patient also appears to have underlying Parkinson's dementia. Continue home regimen. he has been able to take his Sinemet. His mental status is waxing and waning. (8) Hyperlipidemia Impression: Continue atorvastatin 80 mg daily (9) Anemia Impression: Laboratory Tests 02/05/24 02/07/24 02/08/24 19:21 09:45 05:33 Hgb 12.1 L 11.2 L 12.2 L 02/09/24 02/11/24 05:20 12:54 Hgb 12.6 L 12.3 L no clinical significance. mild and stable (10) Ambulatory dysfunction Impression: The patient's is quite concerned regarding the patient's inability to ambulate safely. He has been able to work with physical therapy and occupational therapy. Recommendation is for longterm rehab. Will continue to work on placement. He will come off isolation on 02/14. Disposition: His encephalopathy is improving on a daily basis. He is medically stable today, but will be held due to his COVID status.
[2024-02-12 05:13] LABS: BASOPHILS % (AUTO) 0.3 %; EOSINOPHILS # (AUTO) 0.4 10^3/uL (0.0-0.7); HCT - HEMATOCRIT 36.3 % (42.0-52.0); LYMPHOCYTES # (AUTO) 1.4 10^3/uL (1.5-3.5); LYMPHOCYTES % (AUTO) 14.1 %; MEAN CORPUSCULAR HEMOGLOBIN 30.4 pg (27.0-31.0); MEAN CORPUSCULAR HGB CONC 33.1 g/dL (32.0-36.0); MEAN CORPUSCULAR VOLUME 91.9 fL (80.0-94.0); MEAN PLATELET VOLUME 10.2 fL (7.4-11.4); MONOCYTES % (AUTO) 10.3 %; NEUTROPHILS % (AUTO) 71.1 %; PLT - PLATELET COUNT 150 10^3/uL (130-450); RED BLOOD COUNT 3.95 10^6/uL (4.70-6.10); RED CELL DISTRIBUTION WIDTH 13.3 % (12.0-15.0); WHITE BLOOD COUNT 9.9 x10^3/uL (4.8-10.8)
[2024-02-12 05:28] LABS: CREATININE 0.8 mg/dL (0.6-1.3); POTASSIUM 3.7 mmol/L (3.5-4.5)
--- NOTE | 2024-02-12 09:18 | PROVIDER PROGRESS NOTE ---
Subjective - Prog Note Date Prog Note Date: 02/12/24 Prog Note Time: 09:17 - Subjective Pt reports feeling: No change Subjective: awake and oriented to self only this AM. this is not unusual for him. Has been refusing his meds this AM, but tells me that he will take them. Current Medications - Current Medications Current Medications: Medications Aspirin (Aspirin Chew 81 Mg Tablet) 81 mg PO DAILY [facility] Last Admin: 02/12/24 09:18 Dose: 81 mg Atorvastatin Calcium (Atorvastatin 40 Mg Tablet) 80 mg PO DAILY [facility] Last Admin: 02/12/24 09:15 Dose: 80 mg Carbidopa/Levodopa (Carbidopa/Levodopa 25 Mg/100 Mg Tablet) 1 tab PO QID [facility] Last Admin: 02/12/24 16:45 Dose: 1 tab Cholecalciferol (Cholecalciferol 25 Mcg Tablet) 50 mcg PO DAILY [facility] Last Admin: 02/12/24 09:17 Dose: 50 mcg Clopidogrel Bisulfate (Clopidogrel 75 Mg Tablet) 75 mg PO DAILY [facility] Last Admin: 02/12/24 09:15 Dose: 75 mg Diphenoxylate HCl/Atropine (Diphenox/Atropine 2.5/0.025 Mg Tablet) 1 tab PO QID PRN PRN Reason: Diarrhea Fluticasone Propionate (Fluticasone Nasal [place]) 2 sprays JOHN DAILY [facility] Last Admin: 02/12/24 09:18 Dose: 2 spray Haloperidol (Haloperidol 5 Mg/Ml Vial) 1 mg IVP Q6H PRN PRN Reason: Agitation Magnesium Oxide (Magnesium Oxide 400 Mg Tablet) 400 mg PO DAILY [facility] Last Admin: 02/12/24 09:16 Dose: 400 mg Ondansetron HCl (Ondansetron 4 Mg/2 Ml Vial) 4 mg IVP Q6HR PRN PRN Reason: Nausea / Vomiting Last Admin: 02/08/24 19:08 Dose: 4 mg Polyethylene Glycol (Polyethylene Glycol 3350 17 Gm Packet) 17 gm PO DAILY [facility] Last Admin: 02/12/24 09:19 Dose: Not Given Potassium Chloride (Potassium Chloride 20 Meq Tablet) 20 meq PO BIDWM [facility] Last Admin: 02/12/24 16:45 Dose: 20 meq Objective - Vital Signs/Intake & Output Vital Signs: Vital Signs x48h Temp Pulse Resp BP Pulse Ox 02/12/24 08:36 36.3 C L 58 L 20 165/71 H 94 Intake & Output: Intake & Output 02/09/24 02/10/24 02/11/24 02/12/24 23:59 23:59 23:59 23:59 Intake Total 970 850 480 100 Output Total 200 25 Balance 770 850 480 75 - Objective General Appearance: positive: No acute distress, Alert Eyes Bilateral: positive: Normal inspection ENT: positive: ENT inspection nml Neck: positive: Nml inspection Respiratory: positive: No respiratory distress, Breath sounds nml Cardiovascular: positive: Regular rate & rhythm Abdomen: positive: Non-tender Skin: positive: Color nml Extremities: positive: Non-tender Neurologic/Psychiatric: positive: Motor nml, Disoriented to place, Disoriented to time - Lab Results Fish Bones: 02/12/24 05:04 02/12/24 05:04 Other Labs: Lab Results x24hrs 02/12/24 02/12/24 02/11/24 Range/Units 05:04 05:04 12:54 WBC 9.9 (4.8-10.8) x10^3/uL RBC 3.95 L (4.70-6.10) 10^6/uL Hgb 12.0 L (14.0-18.0) g/dL Hct 36.3 L (42.0-52.0) % MCV 91.9 (80.0-94.0) fL MCH 30.4 (27.0-31.0) pg MCHC 33.1 (32.0-36.0) g/dL RDW 13.3 (12.0-15.0) % Plt Count 150 (130-450) 10^3/uL MPV 10.2 (7.4-11.4) fL Neut # (Auto) 7.0 H (1.5-6.6) 10^3/uL Lymph # (Auto) 1.4 L (1.5-3.5) 10^3/uL [place] # (Auto) 1.0 (0.0-1.0) 10^3/uL Eos # (Auto) 0.4 (0.0-0.7) 10^3/uL Baso # (Auto) 0.0 (0.0-0.1) 10^3/uL Absolute Nucleated RBC 0.00 x10^3/uL Nucleated RBC % 0.0 /100WBC Sodium 142 144 (135-145) mmol/L Potassium 3.7 3.8 (3.5-4.5) mmol/L Chloride 111 111 (101-111) mmol/L Carbon Dioxide 24 26 (21-32) mmol/L Anion Gap 7.0 7.0 (6-13) BUN 24 H 22 H (6-20) mg/dL Creatinine 0.8 0.8 (0.6-1.3) mg/dL Estimated GFR (MDRD) 91 91 (>89) Glucose 117 H 127 H (74-104) mg/dL Calcium 9.0 9.1 (8.5-10.3) mg/dL 02/11/24 Range/Units 12:54 WBC 9.0 (4.8-10.8) x10^3/uL RBC 4.09 L (4.70-6.10) 10^6/uL Hgb 12.3 L (14.0-18.0) g/dL Hct 37.7 L (42.0-52.0) % MCV 92.2 (80.0-94.0) fL MCH 30.1 (27.0-31.0) pg MCHC 32.6 (32.0-36.0) g/dL RDW 13.5 (12.0-15.0) % Plt Count 151 (130-450) 10^3/uL MPV 9.7 (7.4-11.4) fL Neut # (Auto) 6.8 H (1.5-6.6) 10^3/uL Lymph # (Auto) 1.1 L (1.5-3.5) 10^3/uL [place] # (Auto) 0.7 (0.0-1.0) 10^3/uL Eos # (Auto) 0.3 (0.0-0.7) 10^3/uL Baso # (Auto) 0.0 (0.0-0.1) 10^3/uL Absolute Nucleated RBC 0.00 x10^3/uL Nucleated RBC % 0.0 /100WBC Sodium (135-145) mmol/L Potassium (3.5-4.5) mmol/L Chloride (101-111) mmol/L Carbon Dioxide (21-32) mmol/L Anion Gap (6-13) BUN (6-20) mg/dL Creatinine (0.6-1.3) mg/dL Estimated GFR (MDRD) (>89) Glucose (74-104) mg/dL Calcium (8.5-10.3) mg/dL ABX Reporting Has patient been on IV antibiotics over the past 48 hours?: No Sepsis Event Note (H) - Evaluation Current Stage of Sepsis: Sepsis Possible source of Sepsis: positive: Pulmonary - Sepsis Criteria Sepsis Criteria: Recorded Temperature greater than 38.3C or Less than 36C, Recorded Respiratory Rate greater than 20, CAR REPAIRMAN: altered consciousness (unrelated to primary neuro pathology), MAP less than 65 mmHg, Hepatic: Bilirubin greater than 2mg/dl Assessment/Plan - Problem List (1) Acute metabolic encephalopathy Impression: (1) Acute metabolic encephalopathy Impression: A code stroke was called in the emergency room. MRI , CT head, CTA head and neck have been completed. No evidence for acute CVA. I suspect his encephalopathy is due to his COVID-19 infection. His mental status is waxing and waning. from a mental status standpoint, I think he may be back to his baseline (2) COVID-19 Impression: COVID-19 at this point supportive care only. He is not hypoxic. No need for steroids or remdesivir at this time. Continue COVID precautions. He will need to be on precautions through 02/14. Therapy has recommended SNF. Social work has confirmed that [facility] can likely accept patient on 02/14. Patient and son agree that this is a good idea. Patient would like to go to [facility]. (3) Elevated bilirubin Impression: Laboratory Tests 02/09/24 02/09/24 05:20 05:20 Total Bilirubin 3.4 H Direct Bilirubin 0.55 H This has been persistent. he does not complain of abdominal pain. he is having loose stools. no abdominal distension. eating meals. RUQUS is negative except for hepatic steatosis. with his Parkinson's dementia, and limited life expectancy, will not further pursue. (4) Hypokalemia. Laboratory Tests 02/05/24 02/07/24 02/08/24 19:21 09:45 05:33 Potassium 3.8 3.2 L 3.2 L 02/09/24 02/11/24 02/12/24 05:20 12:54 05:04 Potassium 3.1 L 3.8 3.7 He is getting daily oral replacement. I have ordered BMP for AM (5) Diarrhea Since admission. Thought to be due to covid. Stool negative for C diff. I have ordered lomotil. he struggles with constipation at home. I have ordered metamucil to help bulk up his stools. (4) Cerebrovascular disease Impression: The patient has a history of a CVA in the past. Continue aspirin 81 mg daily and atorvastatin 80 mg daily. Acute CVA has been ruled out. See encephalopathy workup. Echocardigram is complete. no significant valvular pathology. Normal LV and RV size and function. (5) Sepsis Impression: Resolved. The patient had evidence of sepsis likely due to his COVID-19 infection. He has completed a course of Zithromax. He has completed 5 days of cephalosporin therapy. He has defervesced. SOFA score at time of admit was 3. Continue supportive care for COVID-19 and finish 5 days of empiric abx. (6) Bilateral carotid artery stenosis Impression: CT angiography revealed a 50 to 69% occlusion bilaterally. At this point I do not think there is anything we would do about this acutely in light of his COVID infection. He will need to have surveillance and vascular surgery evaluation as an outpatient. 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 (7) Parkinsons disease Impression: The patient also appears to have underlying Parkinson's dementia. Continue home regimen. he has been able to take his Sinemet. His mental status is waxing and waning. (8) Hyperlipidemia Impression: Continue atorvastatin 80 mg daily (9) Anemia Impression: no clinical significance. mild and stable (10) Ambulatory dysfunction Impression: The patient's is quite concerned regarding the patient's inability to ambulate safely. He has been able to work with physical therapy and occupational therapy. Recommendation is for nursing home rehab. Will continue to work on placement. He will come off isolation on 02/14. Disposition: His encephalopathy is improving on a daily basis. He is medically stable today, but will be held due to his COVID status.
[2024-02-13 05:14] LABS: BASOPHILS % (AUTO) 0.3 %; EOSINOPHILS # (AUTO) 0.4 10^3/uL (0.0-0.7); EOSINOPHILS % (AUTO) 3.8 %; HCT - HEMATOCRIT 37.2 % (42.0-52.0); HGB - HEMOGLOBIN 12.1 g/dL (14.0-18.0); LYMPHOCYTES # (AUTO) 1.5 10^3/uL (1.5-3.5); LYMPHOCYTES % (AUTO) 13.8 %; MEAN CORPUSCULAR HEMOGLOBIN 30.2 pg (27.0-31.0); MEAN CORPUSCULAR HGB CONC 32.5 g/dL (32.0-36.0); MEAN CORPUSCULAR VOLUME 92.8 fL (80.0-94.0); MEAN PLATELET VOLUME 10.4 fL (7.4-11.4); MONOCYTES % (AUTO) 9.3 %; NEUTROPHILS # (AUTO) 7.7 10^3/uL (1.5-6.6); NEUTROPHILS % (AUTO) 72.4 %; PLT - PLATELET COUNT 179 10^3/uL (130-450); RED BLOOD COUNT 4.01 10^6/uL (4.70-6.10); RED CELL DISTRIBUTION WIDTH 13.4 % (12.0-15.0); WHITE BLOOD COUNT 10.7 x10^3/uL (4.8-10.8)
[2024-02-13 05:31] LABS: CALCIUM 9.2 mg/dL (8.5-10.3); CREATININE 0.9 mg/dL (0.6-1.3); POTASSIUM 3.7 mmol/L (3.5-4.5)
--- NOTE | 2024-02-13 08:03 | PROVIDER PROGRESS NOTE ---
Subjective - Prog Note Date Prog Note Date: 02/13/24 Prog Note Time: 08:02 - Subjective Pt reports feeling: No change Subjective: Today Kris is confused. He is unable to answer orientation questions. He is alert sitting up with his lunch. He waved at me through the window before I come in. He is in no acute distress and he has no complaints Current Medications - Current Medications Current Medications: Medications Magnesium Oxide (Magnesium Oxide 400 Mg Tablet) 400 mg PO DAILY [facility] Last Admin: 02/13/24 08:18 Dose: 400 mg Aspirin (Aspirin Chew 81 Mg Tablet) 81 mg PO DAILY [facility] Last Admin: 02/13/24 08:18 Dose: 81 mg Atorvastatin Calcium (Atorvastatin 40 Mg Tablet) 80 mg PO DAILY [facility] Last Admin: 02/13/24 08:18 Dose: 80 mg Carbidopa/Levodopa (Carbidopa/Levodopa 25 Mg/100 Mg Tablet) 1 tab PO QID [facility] Last Admin: 02/13/24 08:18 Dose: 1 tab Cholecalciferol (Cholecalciferol 25 Mcg Tablet) 50 mcg PO DAILY [facility] Last Admin: 02/13/24 08:18 Dose: 50 mcg Clopidogrel Bisulfate (Clopidogrel 75 Mg Tablet) 75 mg PO DAILY [facility] Last Admin: 02/13/24 08:18 Dose: 75 mg Diphenoxylate HCl/Atropine (Diphenox/Atropine 2.5/0.025 Mg Tablet) 1 tab PO QID PRN PRN Reason: Diarrhea Fluticasone Propionate (Fluticasone Nasal [employer]) 2 sprays JOHN DAILY [facility] Last Admin: 02/13/24 08:19 Dose: 1 spray Ondansetron HCl (Ondansetron 4 Mg/2 Ml Vial) 4 mg IVP Q6HR PRN PRN Reason: Nausea / Vomiting Last Admin: 02/08/24 19:08 Dose: 4 mg Polyethylene Glycol (Polyethylene Glycol 3350 17 Gm Packet) 17 gm PO DAILY [facility] Last Admin: 02/13/24 08:19 Dose: Not Given Potassium Chloride (Potassium Chloride 20 Meq Tablet) 20 meq PO BIDWM [facility] Last Admin: 02/13/24 08:18 Dose: 20 meq Psyllium Hydrophilic Mucilloid (Psyllium Packet) 1 packet PO DAILY [facility] Last Admin: 02/13/24 08:19 Dose: Not Given Objective - Vital Signs/Intake & Output Vital Signs: Vital Signs x48h Temp Pulse Resp BP Pulse Ox 02/13/24 02:17 36.6 C 63 20 169/78 H 96 Intake & Output: Intake & Output 02/10/24 02/11/24 02/12/24 02/13/24 23:59 23:59 23:59 23:59 Intake Total 850 480 840 25 Output Total 25 Balance 850 480 815 25 - Objective General Appearance: positive: No acute distress Eyes Bilateral: positive: Normal inspection ENT: positive: ENT inspection nml Neck: positive: Nml inspection Respiratory: positive: No respiratory distress Cardiovascular: positive: Regular rate & rhythm Abdomen: positive: Nml bowel sounds, No distention Skin: positive: Other (Yes he some dermatitis about the buttocks. There is no skin breakdown there are no ulcerations) Neurologic/Psychiatric: positive: Disoriented to person, Disoriented to place, Disoriented to time. negative: Slurred/abnml speech - Lab Results Fish Bones: 02/13/24 04:40 02/13/24 04:40 Other Labs: Lab Results x24hrs 02/13/24 02/13/24 Range/Units 04:40 04:40 WBC 10.7 (4.8-10.8) x10^3/uL RBC 4.01 L (4.70-6.10) 10^6/uL Hgb 12.1 L (14.0-18.0) g/dL Hct 37.2 L (42.0-52.0) % MCV 92.8 (80.0-94.0) fL MCH 30.2 (27.0-31.0) pg MCHC 32.5 (32.0-36.0) g/dL RDW 13.4 (12.0-15.0) % Plt Count 179 (130-450) 10^3/uL MPV 10.4 (7.4-11.4) fL Neut # (Auto) 7.7 H (1.5-6.6) 10^3/uL Lymph # (Auto) 1.5 (1.5-3.5) 10^3/uL [place] # (Auto) 1.0 (0.0-1.0) 10^3/uL Eos # (Auto) 0.4 (0.0-0.7) 10^3/uL Baso # (Auto) 0.0 (0.0-0.1) 10^3/uL Absolute Nucleated RBC 0.00 x10^3/uL Nucleated RBC % 0.0 /100WBC Sodium 144 (135-145) mmol/L Potassium 3.7 (3.5-4.5) mmol/L Chloride 110 (101-111) mmol/L Carbon Dioxide 26 (21-32) mmol/L Anion Gap 8.0 (6-13) BUN 27 H (6-20) mg/dL Creatinine 0.9 (0.6-1.3) mg/dL Estimated GFR (MDRD) 80 L (>89) Glucose 115 H (74-104) mg/dL Calcium 9.2 (8.5-10.3) mg/dL Sepsis Event Note (H) - Evaluation Current Stage of Sepsis: Sepsis Possible source of Sepsis: positive: Pulmonary - Sepsis Criteria Sepsis Criteria: Recorded Temperature greater than 38.3C or Less than 36C, Recorded Respiratory Rate greater than 20, PALLIATIVE CARE SPECIALIST: altered consciousness (unrelated to primary neuro pathology), MAP less than 65 mmHg, Hepatic: Bilirubin greater than 2mg/dl Assessment/Plan - Problem List (1) Acute metabolic encephalopathy Impression: A code stroke was called in the emergency room. MRI , CT head, CTA head and neck have been completed. No evidence for acute CVA. I suspect his encephalopathy is due to his COVID-19 infection. His mental status is waxing and waning. from a mental status standpoint, I think he may be back to his baseline (2) COVID-19 Impression: COVID-19 at this point supportive care only. He is not hypoxic. No need for steroids or remdesivir at this time. Continue COVID precautions. He will need to be on precautions through 02/14. Therapy has recommended SNF. Social work has confirmed that [facility] can likely accept patient on 02/14. Patient and son agree that this is a good idea. Patient would like to go to [facility]. (3) Elevated bilirubin Impression: Laboratory Tests 02/09/24 02/09/24 05:20 05:20 Total Bilirubin 3.4 H Direct Bilirubin 0.55 H This has been persistent. he does not complain of abdominal pain. he is having loose stools. no abdominal distension. eating meals. RUQUS is negative except for hepatic steatosis. with his Parkinson's dementia, and limited life expectancy, will not further pursue. (4) Hypokalemia. Laboratory Tests 02/13/24 04:40 Potassium 3.7 He is getting daily oral replacement. I have ordered BMP for AM. resolved (5) Diarrhea Since admission. Thought to be due to covid. Stool negative for C diff. I have ordered lomotil. he struggles with constipation at home. I have ordered metamucil to help bulk up his stools. (4) Cerebrovascular disease Impression: The patient has a history of a CVA in the past. Continue aspirin 81 mg daily and atorvastatin 80 mg daily. Acute CVA has been ruled out. See encephalopathy workup. Echocardigram is complete. no significant valvular pathology. Normal LV and RV size and function. (5) Sepsis Impression: Resolved. The patient had evidence of sepsis likely due to his COVID-19 infection. He has completed a course of Zithromax. He has completed 5 days of cephalosporin therapy. He has defervesced. SOFA score at time of admit was 3. resolved (6) Bilateral carotid artery stenosis Impression: CT angiography revealed a 50 to 69% occlusion bilaterally. At this point I do not think there is anything we would do about this acutely in light of his COVID infection. He will need to have surveillance and vascular surgery evaluation as an outpatient. 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 (7) Parkinsons disease Impression: The patient also appears to have underlying Parkinson's dementia. Continue home regimen. he has been able to take his Sinemet. His mental status is waxing and waning. (8) Hyperlipidemia Impression: Continue atorvastatin 80 mg daily (9) Anemia Impression: no clinical significance. mild and stable (10) Ambulatory dysfunction Impression: The patient's is quite concerned regarding the patient's inability to ambulate safely. He has been able to work with physical therapy and occupational therapy. Recommendation is for custodial rehab. Will continue to work on placement. He will come off isolation on 02/14. Disposition: His encephalopathy is waxing and waning consistent with his Parkinson's dementia He is medically stable, but will be held due to his COVID status.
[2024-02-13] MEDS ORDERED: COD LIVER OIL/ZINC OXIDE 113 GM TUBE TOP PRN (15:29)
--- NOTE | 2024-02-14 12:22 | PROVIDER PROGRESS NOTE ---
Subjective - Prog Note Date Prog Note Date: 02/14/24 - Subjective Pt reports feeling: No change (Patient minimally interactive with interview given Parkinson's dementia. Discussed this with nursing, they believe this is baseline) Objective - Vital Signs/Intake & Output Reviewed Vital Signs: Yes Intake & Output: Intake & Output 02/11/24 02/12/24 02/13/24 02/14/24 23:59 23:59 23:59 23:59 Intake Total 480 840 115 Output Total 25 Balance 480 815 115 - Objective General Appearance: positive: No acute distress Eyes Bilateral: positive: Normal inspection Respiratory: positive: Chest non-tender, No respiratory distress, Breath sounds nml Cardiovascular: positive: Regular rate & rhythm Abdomen: positive: Non-tender Skin: positive: Color nml Extremities: positive: Non-tender Neurologic/Psychiatric: positive: Other ( minimally interactive with interview due to Parkinson's dementia. He tracks with his eyes, and has some extremity movement. He responds to his name. Nursing reports he will occasionally say a few words but that he does not talk much.) - Lab Results Fish Bones: 02/13/24 04:40 02/13/24 04:40 - Diagnostic Imaging Diagnostic Imaging Results: positive: Final report reviewed Diagnostic Imaging Comments: CT, CTA, MRI brain Sepsis Event Note (H) - Evaluation Current Stage of Sepsis: Resolved Possible source of Sepsis: positive: Pulmonary - Sepsis Criteria Sepsis Criteria: Recorded Temperature greater than 38.3C or Less than 36C, Recorded Respiratory Rate greater than 20, PACKING ATTENDANT: altered consciousness (unrelated to primary neuro pathology), MAP less than 65 mmHg, Hepatic: Bilirubin greater t good 2mg/dl Assessment/Plan - Problem List (1) Acute metabolic encephalopathy Impression: - Problem List (1) Acute metabolic encephalopathy Impression: A code stroke was called in the emergency room. MRI , CT head, CTA head and neck have been completed. No evidence for acute CVA. Suspect his encephalopathy is secondary to COVID-19 infection. His mental status is waxing and waning and I am told this is his baseline. (2) COVID-19 Impression: COVID-19 at this point supportive care only. He is not hypoxic. No need for steroids or remdesivir at this time. Continue COVID precautions. He will need to be on precautions through 02/14. Therapy has recommended SNF. Social work has confirmed that [facility] can likely accept patient on 02/14. Patient and son agree that this is a good idea. Patient would like to go to [facility], not [place]. (3) Elevated bilirubin Impression: Laboratory Tests 02/09/24 02/09/24 05:20 05:20 Total Bilirubin 3.4 H Direct Bilirubin 0.55 H This has been persistent. he does not complain of abdominal pain. he is having loose stools. no abdominal distension. eating meals. RUQUS is negative except for hepatic steatosis. with his Parkinson's dementia, and limited life expectancy, will not further pursue. (4) Hypokalemia. Laboratory Tests 02/13/24 04:40 Potassium 3.7 Resolved (5) Diarrhea Negative for C. difficile, currently managed with Lomotil and Metamucil (4) Cerebrovascular disease Impression: History CVA, on aspirin and high-dose statin. Workup negative for acute CVA. His altered mental status is likely related to his Parkinson's dementia and COVID-19 infection. Echocardiogram complete with no significant valvular pathology (5) Sepsis Impression: patient met SIRS criteria secondary to COVID-19 infection. He completed a course of azithromycin and 5 days of cephalosporin. This has resolved (6) Bilateral carotid artery stenosis Impression: CT angiography revealed a 50 to 69% occlusion bilaterally. At this point I do not think there is anything we would do about this acutely in light of his COVID infection. He will need to have surveillance and vascular surgery evaluation as an outpatient. 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 (7) Parkinsons disease Impression: The patient also appears to have underlying Parkinson's dementia. Continue home regimen. he has been able to take his Sinemet. His mental status is waxing and waning. (8) Hyperlipidemia Impression: Continue atorvastatin 80 mg daily (9) Anemia Impression: no clinical significance. mild and stable (10) Ambulatory dysfunction Impression: The patient's is quite concerned regarding the patient's inability to ambulate safely. He has been able to work with physical therapy and occupational therapy. Recommendation is for nursing home rehab. Will continue to work on placement. He will come off isolation on 02/14. Disposition: Discharge to [facility] likely tomorrow as that is when he comes out of COVID-19 isolation (6) Cerebrovascular accident (CVA) Qualifiers: CVA mechanism: unspecified Qualified Code(s): I63.9 - Cerebral infarction, unspecified
[2024-02-15 05:57] LABS: HCT - HEMATOCRIT 36.2 % (42.0-52.0); HGB - HEMOGLOBIN 11.7 g/dL (14.0-18.0); MEAN CORPUSCULAR HEMOGLOBIN 30.3 pg (27.0-31.0); MEAN CORPUSCULAR HGB CONC 32.3 g/dL (32.0-36.0); MEAN CORPUSCULAR VOLUME 93.8 fL (80.0-94.0); MEAN PLATELET VOLUME 9.9 fL (7.4-11.4); RED BLOOD COUNT 3.86 10^6/uL (4.70-6.10); RED CELL DISTRIBUTION WIDTH 13.5 % (12.0-15.0); WHITE BLOOD COUNT 9.8 x10^3/uL (4.8-10.8)
[2024-02-15 06:13] LABS: CREATININE 1.1 mg/dL (0.6-1.3); POTASSIUM 3.6 mmol/L (3.5-4.5)
--- NOTE | 2024-02-15 08:40 | Discharge Plan ---
"Discharge Plan for SNF / [facility] - Discharge Plan And Transition Orders Problem Reviewed?: Yes Disposition: 03 SNF DC/Xfer Condition: Fair Allergies and Adverse Reactions: Allergies Allergy/AdvReac Type Severity Reaction Status Date / Time adhesive Allergy Rash Verified 02/05/24 19:17 Plan of Treatment: You were admitted to the hospital and treated for sepsis due to COVID-19 infection. Initially you were quite confused but this is improved. After this acute illness you are weak. After discussions with you and your family the decision has been made to pursue rehabilitation at discharge. You will be eval uated by physical therapy, Occupational Therapy and speech therapy at the facility. You should follow-up with your primary care provider when you get out of rehab. Assessment: On the day of discharge the patient was examined. He is stable for transfer to a skilled facility today to begin his rehabilitation - SNF / [facility] Transition Orders Admit to (Facility): [facility] Discharge Diagnosis: 1. Sepsis The patient had evidence of sepsis present at the time of admission due to COVID-19 infection. His sepsis symptoms have resolved at this point 2. COVID-19 The patient is doing well. He is not requiring supplemental oxygen. He has come off of COVID precautions today. 3. Acute metabolic encephalopathy Secondary to sepsis present at the time of admission. Resolved. He is back to his cognitive baseline 4. Elevated bilirubin Likely due to sepsis present at the time of admission. This will need to be followed as an outpatient. 5. Cerebrovascular disease with history of CVA MRI of the brain did not reveal an acute stroke. Continue aspirin, Plavix and high-dose atorvastatin 6. Bilateral carotid artery stenosis This will need to be followed as an outpatient 7. Parkinson's disease Continue home regimen 8. Dysphagia He should be evaluated by speech therapy at the facility. He is having trouble coughing especially after drinking thin liquid 9. Hyperlipidemia Continue atorvastatin 80 mg daily 10. Anemia of chronic disease Stable 11. Ambulatory dysfunction Today the patient will be transferred to a skilled facility for subacute rehabilitation. He will require physical therapy and Occupational Therapy at the facility Medicare Certification Statement: I certify that [facility] shelter care is medically necessary on a continuing basis for any of the conditions for which she/he is receiving care during hospitalization. Notify PCP of admission and forward orders to primary provider for signature. Weight on admission and: Weekly Other Notification Orders: Call PCP immediately if patient develops dyspnea, chest pain/tightness or edema. House Bowel Program: Yes Additional Bowel Program Orders: If no BM after 2 days, nurse may give M.O.M. 30ml PO PRN and/or ducolax Supp 1 TX and/or MAHENDRA 250mg P.O., and/or senna 1-2 tabs PO. On day 3 nurse may give repeat above order until residents constipation is resolved. Annual Influenza Vaccine (between Feb 12 and September 11): Yes Two-step PPD per [facility] [phone] or approved exception documents: Yes Oxygen Orders: Not applicable Medication Orders: PLEASE REFER TO THE DISCHARGE MEDICATION LIST. Insulin Orders?: No - Diet Type: Geriatric Texture: Regular Liquids: Thin May have monthly special meal: Yes - Therapies | Activity Therapy: Evaluation | Treat if indicated: Speech, PT, OT, Swallowing / ST Rehabilitation Potential: Return to independent living Activity: No Restrictions Weight Bearing: Full Weight Assistance Devices: Walker Follow Up: The patient should follow-up with this MD in 1 week. He should follow-up with his primary care provider when he is released from rehab. He has an appointment coming up next week with his neurologist and he should keep this appointment"
--- NOTE | 2024-02-15 08:53 | DISCHARGE SUMMARY ---
Discharge Summary Admit Date: 02/05/24 Discharge Date: 02/15/24 Discharging Provider: Shawna Prater PA-C Primary Care Provider: Dr Ignacia Molina Code Status: Do Not Attempt Resuscitation Condition at Discharge: Fair Discharge Disposition: SNF DC/Xfer Discharge Facility Name: [facility] - DIAGNOSES Discharge Diagnoses with Status of Each Condition: 1. Sepsis The patient had evidence of sepsis present at the time of admission due to COVID-19 infection. His sepsis symptoms have resolved at this point 2. COVID-19 The patient is doing well. He is not requiring supplemental oxygen. He has come off of COVID precautions today. 3. Acute metabolic encephalopathy Secondary to sepsis present at the time of admission. Resolved. He is back to his cognitive baseline 4. Elevated bilirubin Likely due to sepsis present at the time of admission. This will need to be followed as an outpatient. 5. Cerebrovascular disease with history of CVA MRI of the brain did not reveal an acute stroke. Continue aspirin, Plavix and high-dose atorvastatin 6. Bilateral carotid artery stenosis This will need to be followed as an outpatient 7. Parkinson's disease Continue home regimen 8. Dysphagia He should be evaluated by speech therapy at the facility. He is having trouble coughing especially after drinking thin liquid 9. Hyperlipidemia Continue atorvastatin 80 mg daily 10. Anemia of chronic disease Stable 11. Ambulatory dysfunction Today the patient will be transferred to a skilled facility for subacute rehabilitation. He will require physical therapy and Occupational Therapy at the facility - HPI History of Present Illness: From the admission HP: 88 y old male with PMH Hyperlipidemia, TIA, parkinson disease brought in to the ER due to AMS and weakness.. Pt is confused at this time , so most is history is by at bed side As per , pt started cough, nasal congestion yesterday. He woke up this am whith AMS and weakness and difficulty ambulating In ER pt also had fever Labs showed normal WBC COVID positive CXR neg CT head and neck was done As per ER physician, stroke alert was called .Neurology recommended MRI brain Pt is admitted due to AMS, possible TIA/CVA, Fever, COVID - HOSPITAL COURSE Hospital Course: The patient was admitted to the hospital. Initially he was quite confused and there was some concerns that he could have had an acute CVA. He had a CT of the brain which revealed no evidence of a CVA. 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 He then had an MRI of the brain which revealed no evidence of an acute CVA. The patient was noted to have COVID-19 and it was felt that his confusion was due to sepsis. He did have an elevated bilirubin an d abdominal ultrasound was obtained which revealed evidence of fatty liver but otherwise nothing acute. Over the course of the hospitalization the patient improved. He has underlying Parkinson's disease and is severely weak and debilitated after this acute illness. The patient and his family have decided to pursue subacute rehabilitation at discharge. I was notified by the discharge planners that a bed is available today and he will be transferred to the facility in stable condition. Of note the patient's tells me that for the past 24 hours the patient has been coughing after he eats and drinks especially after he drinks thin liquids. Would recommend getting speech therapy to laith santos at the facility. - ALLERGIES Allergies/Adverse Reactions: Allergies Allergy/AdvReac Type Severity Reaction Status Date / Time adhesive Allergy Rash Verified 02/05/24 19:17 - MEDICATIONS Home Medications: Ambulatory Orders Medication Instructions Recorded Confirmed Carbidopa/Levodopa 25/100 [Sinemet 1 each PO QID 08/22/14 02/05/24 25 mg/100 mg] Vit D3-Vit K/Berberine/Hops 2,000 tab ORAL DAILY 08/22/14 02/05/24 [Ostera Tablet] Fluticasone [Flonase] 2 sprays JOHN DAILY 02/13/20 02/05/24 Magnesium Oxide 500 mg PO DAILY 02/13/20 02/05/24 Rivastigmine Tartrate 1 cap PO QID 11/01/21 02/05/24 [Rivastigmine] Clopidogrel [Plavix] 75 mg PO DAILY 09/01/23 02/05/24 Aspirin [Mercer Aspirin] 81 mg PO DAILY 02/05/24 02/05/24 Atorvastatin Calcium [Lipitor] 80 mg PO DAILY 02/05/24 02/05/24 Cyanocobalamin (Vitamin B-12) 1 tab PO DAILY 02/06/24 02/06/24 [Vitamin B-12] Melatonin 1 cap PO HS 02/06/24 02/06/24 Pramipexole Di-HCl [Mirapex ER] 1 tab PO DAILY 02/06/24 02/06/24 Tamsulosin [Flomax] 1 cap PO HS 02/06/24 02/06/24 Cholecalciferol [Vitamin D3] 50 mcg PO DAILY tab 02/15/24 Cod Liver Oil/Zinc Oxide [Desitin] 113 gm TOP PRN PRN each 02/15/24 Multivitamin [Theragran] 1 tab PO DAILYWM tab 02/15/24 Potassium Chloride [K-Dur] 20 meq PO BIDWM tab 02/15/24 Psyllium [Metamucil] 1 packet PO DAILY packet 02/15/24 Zinc Oxide 20% Oint [Zinc Oxide] 1 applic TOP PRN PRN each 02/15/24 - PHYSICAL EXAM AT DISCHARGE General Appearance: positive: No acute distress Eyes Bilateral: positive: Normal inspection ENT: positive: ENT inspection nml Neck: positive: Nml inspection Respiratory: positive: Chest non-tender, Breath sounds nml Cardiovascular: positive: Regular rate & rhythm, No murmur, No gallop. negative: Friction rub Abdomen: positive: Non-tender, No organomegaly, Nml bowel sounds Skin: positive: Color nml, No rash, Warm Extremities: positive: Non-tender, Full ROM Neurologic/Psychiatric: positive: Oriented x3, CN's nml (2-12), Other (Morning the patient has a rather flat affect and has a tremor) - LABS Result Diagrams: 02/15/24 05:47 02/15/24 05:47 - SEPSIS Current Stage of Sepsis: Resolved Possible source of Sepsis: Pulmonary Sepsis Criteria: Recorded Temperature greater than 38.3C or Less than 36C, Recorded Respiratory Rate greater than 20, PUPPY SITTER: altered consciousness (unrelated to primary neuro pathology), MAP less than 65 mmHg, Hepatic: Bilirubin greater than 2mg/dl - FOLLOW UP Follow Up: The patient will need follow up regarding his bilateral carotid artery stenosis. He should follow up with electronics lead when released from rehab - TIME SPENT Time Spent in Discharge (Minutes): 45
[2024-02-15 14:37] VITALS: BP 131/63; O2SAT 96
== END 2024-02-15 14:30 | DRG 871 ==
LOC: EDUNIT# → ED 19:05 → MS2 21:54
PROVIDERS: ADMIT Internal Medicine; ATTEND Physician Assistant
DX: I63.9 Cerebral infarction, unspecified (principal); A41.89 Other specified sepsis; G93.41 Metabolic encephalopathy; F02.80 Dementia in other diseases classified elsewhere, unspecified severity, without behavioral disturbance, psychotic disturbance, mood disturbance, and anxiety; R07.9 Chest pain, unspecified; U07.1 COVID-19; F02.811 Dementia in other diseases classified elsewhere, unspecified severity, with agitation; E80.6 Other disorders of bilirubin metabolism; I67.9 Cerebrovascular disease, unspecified; I65.23 Occlusion and stenosis of bilateral carotid arteries; R13.10 Dysphagia, unspecified; E78.5 Hyperlipidemia, unspecified; R26.9 Unspecified abnormalities of gait and mobility; G20.A1 Parkinson's disease without dyskinesia, without mention of fluctuations; R53.81 Other malaise; J45.909 Unspecified asthma, uncomplicated; D64.9 Anemia, unspecified; E87.6 Hypokalemia; R19.7 Diarrhea, unspecified; Z79.02 Long term (current) use of antithrombotics/antiplatelets; Z79.82 Long term (current) use of aspirin; Z79.899 Other long term (current) drug therapy; Z86.73 Personal history of transient ischemic attack (TIA), and cerebral infarction without residual deficits
CPT/HCPCS: 36415; 70450; 70496; 70498; 70551; 71045; 76705; 80048; 80053; 80061; 81003; 82248; 83605; 83690; 85025; 85027; 85610; 87040; 87045; 87046; 87427; 87493; 87633; 93005; 93307; 96365; 96375; 97162; 97166; 99285; A9270; J0131; J2060; Q9967; 81001; 83721; 87086

== ENCOUNTER 2024-02-15 14:33 | Outpatient (CLI) | payer MEDICARE, OTHER | END 2024-02-15 23:59 | LOC: EMS 14:33 | PROVIDERS: ATTEND Specialist | DX: R41.0 Disorientation, unspecified (principal); G20.C Parkinsonism, unspecified; F02.80 Dementia in other diseases classified elsewhere, unspecified severity, without behavioral disturbance, psychotic disturbance, mood disturbance, and anxiety; R53.1 Weakness; Z86.16 Personal history of COVID-19; Z74.01 Bed confinement status | CPT/HCPCS: A0425; A0428 ==

== ENCOUNTER 2024-02-17 20:31 | Outpatient (CLI) | payer MEDICARE, OTHER | END 2024-02-17 20:32 | disposition critical access hospital (66) | LOC: EMS 20:31 | DX: S01.81XA Laceration without foreign body of other part of head, initial encounter (principal); W05.0XXA Fall from non-moving wheelchair, initial encounter; Y92.129 Unspecified place in nursing home as the place of occurrence of the external cause; Z79.02 Long term (current) use of antithrombotics/antiplatelets | CPT/HCPCS: A0425; A0429 ==

== ENCOUNTER 2024-02-17 20:36 | Emergency (ER) | payer MEDICARE, OTHER ==
--- NOTE | 2024-02-17 20:53 | ED Physician Documentation ---
History of Present Illness - Stated complaint Stated Complaint: GLF, HIT HEAD, 1 INCH LAC - History obtained from History obtained from: EMS - Additonal information Additional information: 88-year-old man presents after fall from wheelchair with head trauma to right frontal scalp, on Plavix. Modified trauma was called in the field. Patient could not tolerate c-collar. GCS 14 (confused about place and time) PD PAST MEDICAL HISTORY - Past Medical History Cardiovascular: None Respiratory: Asthma Neuro: Dementia, CVA, Parkinson's Endocrine/Autoimmune: None GI: None : None HEENT: None Psych: None Musculoskeletal: None Derm: None, Other - Past Surgical History Past Surgical History: Yes General: Colonoscopy Ortho: Knee replacement HEENT: Cataracts - Present Medications Home Medications: Ambulatory Orders Medication Instructions Recorded Confirmed Carbidopa/Levodopa 25/100 [Sinemet 1 each PO QID 08/22/14 02/05/24 25 mg/100 mg] Vit D3-Vit K/Berberine/Hops 2,000 tab ORAL DAILY 08/22/14 02/05/24 [Ostera Tablet] Fluticasone [Flonase] 2 sprays JOHN DAILY 02/13/20 02/05/24 Magnesium Oxide 500 mg PO DAILY 02/13/20 02/05/24 Rivastigmine Tartrate 1 cap PO QID 11/01/21 02/05/24 [Rivastigmine] Clopidogrel [Plavix] 75 mg PO DAILY 09/01/23 02/05/24 Aspirin [Virgie Aspirin] 81 mg PO DAILY 02/05/24 02/05/24 Atorvastatin Calcium [Lipitor] 80 mg PO DAILY 02/05/24 02/05/24 Cyanocobalamin (Vitamin B-12) 1 tab PO DAILY 02/06/24 02/06/24 [Vitamin B-12] Melatonin 1 cap PO HS 02/06/24 02/06/24 Pramipexole Di-HCl [Mirapex ER] 1 tab PO DAILY 02/06/24 02/06/24 Tamsulosin [Flomax] 1 cap PO HS 02/06/24 02/06/24 Cholecalciferol [Vitamin D3] 50 mcg PO DAILY tab 02/15/24 Cod Liver Oil/Zinc Oxide [Desitin] 113 gm TOP PRN PRN each 02/15/24 Multivitamin [Theragran] 1 tab PO DAILYWM tab 02/15/24 Potassium Chloride [K-Dur] 20 meq PO BIDWM tab 02/15/24 Psyllium [Metamucil] 1 packet PO DAILY packet 02/15/24 Zinc Oxide 20% Oint [Zinc Oxide] 1 applic TOP PRN PRN each 02/15/24 - Allergies Allergies/Adverse Reactions: Allergies Allergy/AdvReac Type Severity Reaction Status Date / Time adhesive Allergy Rash Verified 02/17/24 20:51 - Social History Does the pt smoke?: No Smoking Status: Unknown if ever smoked Does the pt drink ETOH?: Yes Does the pt have substance abuse?: No - Immunizations Immunizations are current?: Yes - POLST Patient has POLST: No PD ED PE NORMAL - Vitals Vital signs reviewed: Yes - General General: No acute distress, Well developed/nourished, Other (AOX1) - HEENT HEENT: Atraumatic, PERRL, EOMI, Moist mucous membranes, Pharynx benign - Neck Neck: No bony TTP, Other (could not tolerate c collar) - Cardiac Cardiac: RRR - Respiratory Respiratory: No respiratory distress, Clear bilaterally - Abdomen Abdomen: Non tender, Non distended - Back Back: No spinal TTP - Derm Derm: Normal color, Warm and dry - Neuro Eye Opening: Spontaneous Motor: Obeys Commands Verbal: Confused GCS Score: 14 Results - Vitals Vitals: Vital Signs - 24 hr 02/17/24 02/17/24 20:48 20:51 Temperature 36.0 C L Heart Rate 78 76 Respiratory 16 Rate Blood Pressure 128/69 O2 Saturation 96 Oxygen O2 Source Room air PD Medical Decision Making - ED course ED course: 88yM p/w fall from wheelchair at care home with superficial laceration/abrasion to R orthodoxy, on plavix. modified trauma called pre-hospital due to +HT and plavix use. patient AOX1 on arrival, likely baseline. CT head/c spine ordered. patient could not tolerate c collar. GC 14 (confused about place and time). Plan to dc home given negative imaging. tdap updated. Departure - Departure Disposition: 01 Home, Self Care Clinical Impression: Dementia, Fall from standing, Head injury Condition: Stable Instructions: ED Head Injury Closed Comments: You were seen in the emergency department for fall and head injury. Your imaging showed no internal damage. Please follow-up with your primary care provider and return to the emergency department if you have any new or worsening symptoms or other concerns.
[2024-02-17] MEDS: TETANUS/DIPHTHERIA/PERTUSSIS 0.5 ML SYRINGE IM ONE (21:07)
--- NOTE | 2024-02-17 21:57 | CT Report ---
PROCEDURE: Head WO INDICATIONS: +HT no loc, on plavix TECHNIQUE: Noncontrast 4.5 mm thick angled axial sections acquired from the foramen magnum to the vertex. For r adiation dose reduction, the following was used: automated exposure control, adjustment of mA and/or kV according to patient size. COMPARISON: MRI brain 02/07/2024. FINDINGS: Image quality: Excellent. CSF spaces: Basal cisterns are patent. No extra-axial fluid collections. Ventricles are normal in size and shape. Brain: No midline shift. Encephalomalacia in the right parieto-occipital lobe and anterior right te mporal lobe, consistent with prior infarct. This is stable compared to prior. Age-related global volu me loss and chronic microvascular ischemic changes. Intracranial atherosclerotic vascular calcificati ons. No intracranial masses or hemorrhage. Nance-white matter interface is normal. Skull and face: Calvarium and visualized facial bones are intact, without suspicious lesions. Sinuses: Visualized sinuses and mastoids are clear. IMPRESSION: No acute intracranial pathology. Stable chronic findings as above. Reviewed by: Daryl Centeno MD on 02/17/2024 9:55 PM PDT Approved by: Daryl Centeno MD on 02/17/2024 9:55 PM PDT Station ID: [id number]
--- NOTE | 2024-02-17 21:59 | CT Report ---
PROCEDURE: Cervical Spine WO INDICATIONS: fall from standing, modified trauma +plavix TECHNIQUE: Noncontrast 3 mm thick sections acquired from the skull base to the T4 level. Sagittal and coronal r eformats were then constructed. For radiation dose reduction, the following was used: automated exp osure control, adjustment of mA and/or kV according to patient size. COMPARISON: 09/01/2023. FINDINGS: Image quality: Excellent. Bones: No fractures or dislocations. Degenerative changes of the cervical spine, most pronounced at C6-C7. Visualized superior ribs are intact. Soft tissues: Prevertebral soft tissues are normal in thickness. No paravertebral hematomas. No ap ical pneumothoraces. IMPRESSION: No acute, displaced fracture or traumatic subluxation. Reviewed by: Daryl Centeno MD on 02/17/2024 9:58 PM PDT Approved by: Daryl Centeno MD on 02/17/2024 9:58 PM PDT Station ID: [id number]
[2024-02-17 22:39] VITALS: BP 126/72; O2SAT 97
== END 2024-02-17 23:15 | disposition home or self-care (01) ==
LOC: EDUNIT# → ED 20:36
DX: S09.90XA Unspecified injury of head, initial encounter (principal); S01.81XA Laceration without foreign body of other part of head, initial encounter; W05.0XXA Fall from non-moving wheelchair, initial encounter; Y92.129 Unspecified place in nursing home as the place of occurrence of the external cause; G20.A1 Parkinson's disease without dyskinesia, without mention of fluctuations; F02.80 Dementia in other diseases classified elsewhere, unspecified severity, without behavioral disturbance, psychotic disturbance, mood disturbance, and anxiety; Z23 Encounter for immunization; Z86.73 Personal history of transient ischemic attack (TIA), and cerebral infarction without residual deficits; Z79.899 Other long term (current) drug therapy; Z79.02 Long term (current) use of antithrombotics/antiplatelets; Z79.82 Long term (current) use of aspirin
CPT/HCPCS: 90471; 99283; 99284

== ENCOUNTER 2024-02-17 23:20 | Outpatient (CLI) | payer MEDICARE, OTHER | END 2024-02-17 23:21 | LOC: EMS 23:20 | PROVIDERS: ATTEND Emergency Medicine | DX: R41.0 Disorientation, unspecified (principal); F03.90 Unspecified dementia, unspecified severity, without behavioral disturbance, psychotic disturbance, mood disturbance, and anxiety; S00.81XA Abrasion of other part of head, initial encounter; W19.XXXA Unspecified fall, initial encounter | CPT/HCPCS: A0425; A0428 ==

== ENCOUNTER 2024-03-06 12:20 | Outpatient (CLI) | payer MEDICARE, OTHER ==
[2024-03-06 13:07] LABS: BASOPHILS % (AUTO) 0.4 %; EOSINOPHILS # (AUTO) 0.2 10^3/uL (0.0-0.7); EOSINOPHILS % (AUTO) 3.6 %; HCT - HEMATOCRIT 33.6 % (42.0-52.0); HGB - HEMOGLOBIN 10.9 g/dL (14.0-18.0); LYMPHOCYTES % (AUTO) 22.1 %; MEAN CORPUSCULAR HEMOGLOBIN 30.2 pg (27.0-31.0); MEAN CORPUSCULAR HGB CONC 32.4 g/dL (32.0-36.0); MEAN CORPUSCULAR VOLUME 93.1 fL (80.0-94.0); MONOCYTES # (AUTO) 0.4 10^3/uL (0.0-1.0); MONOCYTES % (AUTO) 7.6 %; NEUTROPHILS # (AUTO) 3.1 10^3/uL (1.5-6.6); NEUTROPHILS % (AUTO) 66.1 %; PLT - PLATELET COUNT 132 10^3/uL (130-450); RED BLOOD COUNT 3.61 10^6/uL (4.70-6.10); RED CELL DISTRIBUTION WIDTH 14.1 % (12.0-15.0); WHITE BLOOD COUNT 4.7 x10^3/uL (4.8-10.8)
[2024-03-06 13:30] LABS: ALBUMIN 3.9 g/dL (3.2-5.5); ALBUMIN/GLOBULIN RATIO 1.9 (1.0-2.2); BILIRUBIN,TOTAL 3.4 mg/dL (0.2-1.0); CALCIUM 9.1 mg/dL (8.5-10.3); CREATININE 0.9 mg/dL (0.6-1.3); POTASSIUM 3.8 mmol/L (3.5-4.5)
== END 2024-03-06 12:21 | disposition home or self-care (01) ==
LOC: LAB.R 12:20
PROVIDERS: ATTEND Family Medicine
DX: E78.5 Hyperlipidemia, unspecified (principal)
CPT/HCPCS: 80053; 85025

== ENCOUNTER 2024-03-08 10:11 | Outpatient (CLI) | payer MEDICARE, OTHER ==
--- NOTE | 2024-03-08 14:13 | XRAY Report ---
PROCEDURE: Chest 2V INDICATIONS: DIMINISHED LUNG SOUNDS TECHNIQUE: 2 views of the chest were acquired. COMPARISON: 02/05/2024. FINDINGS: Surgical changes and devices: None. Lungs and pleura: No pleural effusions or pneumothorax. Lungs are clear. Mediastinum: Mediastinal contours appear normal. Heart size is normal. Bones and chest wall: No suspicious bony lesions. Overlying soft tissues appear unremarkable. IMPRESSION: No acute cardiopulmonary process. Reviewed by: Shin Hernandez MD on 03/08/2024 2:12 PM PDT Approved by: Shin Hernandez MD on 03/08/2024 2:12 PM PDT Station ID: [id number]
== END 2024-03-08 10:12 | disposition home or self-care (01) ==
LOC: DI 10:11
DX: R06.89 Other abnormalities of breathing (principal)

== ENCOUNTER 2025-06-08 11:00 | Inpatient (IN) ==
--- NOTE | 2025-06-08 11:12 | ED Physician Documentation ---
History of Present Illness Stated complaint Stated Complaint: FALL/R ARM PX Chief complaint Chief Complaint: Neuro History obtained from History obtained from: Family and EMS Additonal information Additional information: 89-year-old gentleman presents accompanied by by EMS. He has a history of Parkinson's, dementia, and stroke on clopidogrel. He has been having basically daily falls for the last few weeks. He is injured both elbows. He has been complaining of buttock pain. He has a cough which the described as chronic. No reported fevers. He either uses a walker or is in a wheelchair most of the time. He resides in memory care. Chad Coma Scale Assess Eye opening: Spontaneous Verbal response: Confused Motor response: Obeys Commands Total score: 14 Meds/Allgy Home Medications Ambulatory Orders Medication Instructions Recorded Confirmed cholecalciferol (vitamin D3) 25 50 mcg (2 x 25 mcg (1, 000 unit)) 02/15/24 04/19/25 mcg (1,000 unit) tablet PO DAILY walker 03/23/24 02/28/25 pramipexole 2.25 mg 2.25 mg PO DAILY 05/22/24 tablet,extended release 24 hr (Mirapex ER) rivastigmine tartrate 1.5 mg 1.5 mg PO QID 05/22/24 capsule atorvastatin 80 mg tablet (Lipitor) 80 mg PO DAILY #90 tabs 08/21/24 04/19/25 carbidopa 25 mg-levodopa 100 mg 1 tab PO QID #240 tabs 08/21/24 02/28/25 tablet mecobalamin (vitamin B12) 1,000 500 mcg PO QDAY 02/28/25 mcg chewable tablet (B12 Active) diphenoxylate-atropine 2.5 1 tab PO Q6H PRN diarrhea # 90 tabs 11/21/24 02/28/25 mg-0.025 mg tablet (Lomotil) melatonin 1 mg tablet 3 mg PO HS PRN sleep 5 02/28/25 clopidogrel 75 mg tablet 75 mg PO DAILY #90 tabs 08/0804/19/25 risperidone [Risperdal] PO QPM 02/28/25 02/28/25 acetaminophen 325 mg tablet 325 mg PO Q4H PRN fever or pain #1 04/19/25 04/19/25 (Tylenol) tab cyanocobalamin (vitamin B-12) 500 500 mcg PO QDAY 12/0604/19/25 mcg tablet magnesium citrate,mag oxide 250 mg mg PO 04/19/2512/06 capsule quetiapine 25 mg tablet (Seroquel) 25 mg PO QDAY 04/1904/19/25 fluticasone propionate 50 2 spray intranasal DAILY PRN nasal 05/07/25 mcg/actuation nasal congestion #16 grams spray,suspension (Flonase Allergy Relief) vibegron 75 mg tablet (Gemtesa) 75 mg PO QDAY #30 tabs 05/17/25 05/17/25 diclofenac sodium 1 % topical gel 2 g topical QID #100 grams 05/19/25 (Voltaren Arthritis Pain) Allergies Allergies Allergy/AdvReac Type Severity Reaction Status Date / Time milk Allergy Unknown Unknown Verified 06/08/25 09:30 montelukast Allergy Unknown Unknown Verified 06/08/25 09:30 adhesive Allergy Rash Verified 06/08/25 09:30 PFSH Active Problems All Active Problems (Updated 06/08/25 @ 17:16 by Keenan Lagunas MD) Subdural hemorrhage (Acute) Altered mental status (Acute) Acute pain of left hip (Acute) Fall (Acute) Nasal congestion (Acute) Atopic dermatitis (Acute) Seborrheic keratoses (Acute) Hallucinations, unspecified (Chronic) 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) Constipation (Chronic) Parkinson's disease with dyskinesia and fluctuating manifestations (Chronic) Restless leg syndrome (Chronic) 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) Difficulty swallowing (Chronic) Orthostatic hypotension due to Parkinson's disease (Chronic) At high risk for falls (Chronic) Ambulatory dysfunction (Chronic) Anemia (Chronic) Hyperlipidemia (Chronic) Bilateral carotid artery stenosis (Chronic) Cerebrovascular disease (Chronic) Vertigo (Chronic) Medical History Medical History (Updated 06/08/25 @ 17:16 by Keenan Lagunas MD) Allergic rhinitis Transient ischemic attack Malaise and fatigue Dehydration Acute metabolic encephalopathy Elevated bilirubin Epididymitis Intermittent constipation Social History Social History (Updated 04/19/25 @ 08:25 by ROSIE MATHIAS LPN) Smoking Status: Never smoker If you are a former smoker, when did you quit? (Date/Year): Never smoked Do you dip or chew tobacco?: No (CATE) Do you vape?: No Patient requests smoking cessation consult: No Initiate information on smoking cessation: No Living arrangement: At home Marital Status: Living Condition: With spouse/s.o. 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?: Yes DPOA on file?: No Has Health Care Directive?: Yes Health Care Directive on file?: No Level: Assisted Do you feel safe in your home environment?: Yes History of physical, verbal, emotional, or financial abuse?: No ETOH Use: None Frequency: Occasional Substance Use: denies use POLST Patient has POLST: No Exam Exam Vital Signs: Vital Signs x48h Temp Pulse Resp BP Pulse Ox 06/08/25 15:30 87 18 125/64 97 06/08/25 15:15 74 18 127/65 98 06/08/25 15:00 63 18 114/48 L 98 06/08/25 14:49 75 130/71 98 06/08/25 14:34 65 25 H 132/61 H 99 06/08/25 14:20 76 25 H 119/72 98 06/08/25 14:05 61 24 154/60 H 98 06/08/25 13:50 64 17 118/71 98 06/08/25 13:34 64 25 H 140/60 H 99 06/08/25 13:20 61 22 142/63 H 98 06/08/25 13:04 64 25 H 126/63 99 06/08/25 12:49 71 28 H 126/66 100 06/08/25 12:35 67 16 140/65 H 99 06/08/25 12:20 62 106/52 L 99 06/08/25 12:06 65 130/79 89 L 06/08/25 11:22 36.6 C 74 14 125/75 93 Constitutional He is alert and oriented to person but not place or time. I am able to elicit from him that he was in the [employer] for 22 years. Eyes PERRL Neck/C-Spine He has a dowagers hump, no spinal tenderness per se. No obvious sacral or buttock bedsores. Respiratory Occasional wet cough with rhonchi at the right base Cardiovascular normal heart rate noted, regular rhythm noted and no murmur Gastrointestinal abdomen soft to palpation and nontender to palpation Back/Pelvis no thoracic spine tenderness and no lumbar spine tenderness Extremities A lot of bruising to the left elbow but seemingly full range of motion there. He has multiple skin tears about the right upper extremity and the right elbow does seem tender and he is unable to extend it fully. Neurology GCS calculation - Eye opening: Spontaneous Verbal response: Confused Motor response: Obeys Commands Chad Coma Scale total score: 14 Results Vitals Vitals: Vital Signs - 24 hr 06/08/25 11:22 06/08/25 12:06 06/08/25 12:20 Temperature 36.6 C Temperature Source Oral Pulse Rate 74 65 62 Respiratory Rate 14 Blood Pressure 125/75 130/79 106/52 L O2 Saturation 93 89 L 99 O2 Source Room air Room air Room air Pain Intensity 0 06/08/25 12:35 06/08/25 12:49 06/08/25 13:04 Temperature Temperature Source Pulse Rate 67 71 64 Respiratory Rate 16 28 H 25 H Blood Pressure 140/65 H 126/66 126/63 O2 Saturation 99 100 99 O2 Source Room air Room air Room air Pain Intensity 06/08/25 13:20 06/08/25 13:34 06/08/25 13:50 Temperature Temperature Source Pulse Rate 61 64 64 Respiratory Rate 22 25 H 17 Blood Pressure 142/63 H 140/60 H 118/71 O2 Saturation 98 99 98 O2 Source Room air Room air Room air Pain Intensity 06/08/25 14:05 06/08/25 14:20 06/08/25 14:34 Temperature Temperature Source Pulse Rate 61 76 65 Respiratory Rate 24 25 H 25 H Blood Pressure 154/60 H 119/72 132/61 H O2 Saturation 98 98 99 O2 Source Room air Room air Room air Pain Intensity 06/08/25 14:49 06/08/25 15:00 06/08/25 15:15 Temperature Temperature Source Pulse Rate 75 63 74 Respiratory Rate 18 18 Blood Pressure 130/71 114/48 L 127/65 O2 Saturation 98 98 98 O2 Source Room air Room air Room air Pain Intensity 06/08/25 15:30 Temperature Temperature Source Pulse Rate 87 Respiratory Rate 18 Blood Pressure 125/64 O2 Saturation 97 O2 Source Room air Pain Intensity Oxygen O2 Source Room air Labs Labs: Laboratory Tests 12/26/25 11:13 WBC 8.7 RBC 3.81 L Hgb 11.6 L Hct 35.4 L MCV 92.9 MCH 30.4 MCHC 32.8 RDW 13.8 Plt Count 171 MPV 10.1 Neut # (Auto) 6.9 H Lymph # (Auto) 0.9 L Rhea # (Auto) 0.8 Eos # (Auto) 0.1 Baso # (Auto) 0.0 Absolute Nucleated RBC 0.00 Nucleated RBC % 0.0 Sodium 136 Potassium 3.6 Chloride 106 Carbon Dioxide 22 Anion Gap 8.0 BUN 22 H Creatinine 0.8 Estimated GFR (MDRD) 91 Glucose 115 H Calcium 9.2 Total Bilirubin 2.9 H AST 22 ALT 4 L Alkaline Phosphatase 126 H Total Protein 6.3 L Albumin 4.3 Globulin 2.0 L Albumin/Globulin Ratio 2.2 Rads (name of study) CT Head: Relevant Findings:: Final report received, Discussed with rads and EMP independent interpretation of test Interpretation: Acute left parafalcine subdural hematoma measuring 14 mm without significant mass effect or midline shift. Old right parietal infarct. Bilat eLBOW xr: Relevant Findings:: Final report received and EMP independent interpretation of test Interpretation: X-rays of both elbows was negative for fracture. He does have swelling over the elbow which the radiologist thought could be olecranon bursitis but it is real ly bruising. CT C-Spine: Relevant Findings:: Final report received and EMP independent interpretation of test Interpretation: No acute, displaced fracture or traumatic subluxation. Relatively mild cervical spondylosis. Interval increase in reversal of normal cervical lordosis. CT T Spine: Relevant Findings:: Final report received and EMP independent interpretation of test Interpretation: Chronic marked T12 compression with posterior retropulsion of the superior endplate resulting in moderate canal stenosis. No acute compression fractures. Ct Chest: Relevant Findings:: Final report received and EMP independent interpretation of test Interpretation: 1. Bibasilar bronchial wall thickening and bronchiectasis. 2. No acute pulmonary infiltrates. 3. Chronic marked compression of T12 with bony retropulsion and moderate canal stenosis at T11-T12. 4. Interval mild inferior endplate compression of T8, of uncertain chronicity, potentially acute or subacute. 5. Severe coronary artery calcifications. Comment: Consider nonemergent thoracic spine MRI to determine the acuity versus chronicity of this fracture. CT Pelvis: Relevant Findings:: Final report received and EMP independent interpretation of test Interpretation: 1. No acute bony abnormality. 2. There is a degree of canal stenosis at L3-L4 and L4-L5. 3. Moderate rectal fecal impaction with associated stercoral colitis. PD Medical Decision Making ED course ED course: 89-year-old gentleman whose had very frequent falls lately with unclear injuries other than both elbows. Extensive imaging was ordered and he returned from CT a few minutes before noon and the clinical pharmacy technician wisely brought to my attention his head CT which was independently interpreted by me and it looks like he has an acute and fairly large parafalcine subdural hemorrhage. I discussed this with his shortly thereafter and she brought her son onto speaker phone as we needed to discuss goals of care in this elderly gentleman with Parkinson's and dementia. They do not want him expeditiously transferred for neurosurgical evaluation and we discussed options and they are wanting to bring more family members in for thinking about goals of care and agreed to do a repeat head CT in 4 hours to look at progression. Specifically I spoke with his son John and his son Kamari both by phone. Kamari has a medical power of transactional attorney according to the and is agreeable with probably no intervention on the subdural hematoma. The only other pertinent positive acute finding on imaging was fecal impaction with stercoral colitis and asked the nurse to place an enema. In my discussion with Kamari he was amenable to having social work consultation for evaluation and potential hospice and SNF placement as he may not be be appropriate at this point for his current level of care. Repeat CT head around 5 PM reviewed and really no change. Discussed with sr. social media & mobile manager, , and son Kamari by phone. Sounds like the plan will be for placement in a SNF. specifically does not want [facility]. 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 Spoke with Dr Verdin who is willing to place in obs as he is a gentleman and a scholar at 534pm Discharge Plan Discharge Patient Disposition: ED Place in Observation Condition: Serious Clinical Impression: Hallucinations, unspecified, At high risk for falls, Ambulatory dysfunction, Fall, Altered mental status, Subdural hemorrhage Prescriptions: No Action clopidogrel 75 mg tablet 75 mg PO DAILY Qty: 90 3RF fluticasone propionate [Flonase Allergy Relief] 50 mcg/actuation spray,suspension 2 spray intranasal DAILY PRN (Reason: nasal congestion) Qty: 16 4RF Rx Instructions: administer into each nostril rivastigmine tartrate 1.5 mg capsule 1.5 mg PO QID cholecalciferol (vitamin D3) 25 MCG tablet 50 mcg PO DAILY 0RF pramipexole [Mirapex ER] 2.25 mg tablet extended release 24 hr 2.25 mg PO DAILY diclofenac sodium [Voltaren Arthritis Pain] 1 % gel 2 g topical QID Qty: 100 0RF Rx Instructions: apply to left hip diphenoxylate-atropine [Lomotil] 2.5-0.025 mg tablet 1 tab PO Q6H PRN (Reason: diarrhea) Qty: 90 0RF Rx Instructions: Caution, can cause constipation. If so stop med and only restart with diarrhea. risperidone [Risperdal] PO QPM quetiapine [Seroquel] 25 mg tablet 25 mg PO QDAY acetaminophen [Tylenol] 325 mg tablet 325 mg PO Q4H PRN (Reason: fever or pain) Qty: 1 0RF cyanocobalamin (vitamin B-12) 500 mcg tablet 500 mcg PO QDAY magnesium citrate,mag oxide 250 mg capsule PO Gemtesa 75 mg tablet 75 mg PO QDAY Qty: 30 1RF Rx Instructions: Take 1 tab every day to improve urinary frequency mecobalamin (vitamin B12) [B12 Active] 1,000 mcg tablet,chewable 500 mcg PO QDAY Patient Comments: VERIFY DOSE/FREQUENCY (DME) walker Misc See Rx Instructions .Route Rx Instructions: Four wheel walker - multiple falls using current non wheeled walker. DX code M25.862 Left knee weakness, M25.861 Right knee weakness melatonin 1 mg tablet 3 mg PO HS PRN (Reason: sleep) carbidopa-levodopa 25-100 mg tablet 1 tab PO QID Qty: 240 1RF atorvastatin [Lipitor] 80 mg tablet 80 mg PO DAILY Qty: 90 3RF Print Language: Cambodian Stand Alone Forms: PCP List, [facility]
[2025-06-08 11:18] LABS: HCT - HEMATOCRIT 35.4 % (42.0-52.0); HGB - HEMOGLOBIN 11.6 g/dL (14.0-18.0); MEAN PLATELET VOLUME 10.1 fL (7.4-11.4); NRBC ABSOLUTE COUNT (AUTO) 0.00 x10^3/uL; NUCLEATED RED BLOOD CELLS AUTO 0.0 /100WBC; PLT - PLATELET COUNT 171 10^3/uL (130-450); RED CELL DISTRIBUTION WIDTH 13.8 % (12.0-15.0)
--- OUTSIDE RECORDS SUMMARY | 2025-06-08 11:21 | EXTERNAL MEDICAL SUMMARY RPT | Continuity of Care Document ---
Author Organization [facility] Address [address] [place] [id number] Phone Allergies and Intolerances date description facility reaction severity 2024-11-21 10:00 [id number]^adhesive^ ^adhesive^ ^allergy.id [facility] Rash (no severity) 2024-11-24 10:00 [id number]^adhesive^ ^adhesive^ ^allergy.id [facility] Rash (no severity) 2025-01-31 10:00 [id number]^adhesive^ ^adhesive^ ^allergy.id [facility] Rash (no severity) 2025-02-15 10:00 [id number]^adhesive^ ^adhesive^ ^allergy.id [facility] Rash (no severity) 2025-02-28 10:00 [id number]^adhesive^ ^adhesive^ ^allergy.id [facility] Rash (no severity) 2025-03-24 10:00 [id number]^adhesive^ ^adhesive^ ^allergy.id [facility] Rash (no severity) 2025-03-28 10:00 [id number]^adhesive^ ^adhesive^ ^allergy.id [facility] Rash (no severity) 2025-04-19 10:00 [id number]^adhesive^ ^adhesive^ ^allergy.id [facility] Rash (no severity) 2025-06-08 10:00 [id number]^adhesive^ ^adhesive^ ^allergy.id [facility] Rash (no severity) 2024-11-24 10:00 [id number]^[address]^^marc ukast^^allergy.id [facility] Unknown (no severity) 2025-01-31 10:00 [id number]^[facility]^^marc ukast^^allergy.id [facility] Unknown (no severity) 2025-02-15 10:00 [id number]^[facility]^^marc ukast^^allergy.id [facility] Unknown (no severity) 2025-02-28 10:00 [id number]^[facility]^^marc ukast^^allergy.id [facility] Unknown (no severity) 2025-03-24 10:00 [id number]^[facility]^^marc ukast^^allergy.id [facility] Unknown (no severity) 2025-03-28 10:00 [id number]^[facility]^^marc ukast^^allergy.id [facility] Unknown (no severity) 2025-04-19 10:00 [id number]^[facility]^^marc ukast^^allergy.id [facility] Unknown (no severity) 2025-06-08 10:00 [id number]^^marc ukast^^allergy.id [facility] Unknown (no severity) 2024-11-24 10:00 [id number]^milk^^mil k^^allergy .id [facility] Unknown (no severity) 2025-01-31 10:00 [id number]^milk^^mil k^^allergy .id [facility] Unknown (no severity) 2025-02-15 10:00 [id number]^milk^^mil k^^allergy .id [facility] Unknown (no severity) 2025-02-28 10:00 [id number]^milk^^mil k^^allergy .id [facility] Unknown (no severity) 2025-03-24 10:00 [id number]^milk^^mil k^^allergy .id [facility] Unknown (no severity) 2025-03-28 10:00 [id number]^milk^^mil k^^allergy .id [facility] Unknown (no severity) 2025-04-19 10:00 [id number]^milk^^mil k^^allergy .id [facility] Unknown (no severity) 2025-06-08 10:00 [id number]^milk^^mil k^^allergy .id [facility] Unknown (no severity) Problems date description facility 2025-03-28 13:25 [facility] 2025-03-28 13:25 Unspecified abdominal pain [facility] 2025-03-28 13:25 Diarrhea, unspecified [facility] 2025-03-29 10:17 [facility], [facility] 2025-03-29 10:24 Parkinson's disease without dyskinesia, without mention of fluctuations [facility] 2025-03-30 12:54 Unspecified injury of head, ini tial encounter [facility] 2025-04-06 09:19 Laceration without f oreign body of other part of head, initial encounter [facility] 2025-05-14 09:47 Pain in left finger(s) [facility] 2025-05-14 09:47 Other [facility] 2025-05-14 09:47 Unspecified abdominal pain [facility] 2025-05-14 09:47 Diarrhea, unspecified [facility] 2025-05-14 09:47 Other symptoms and s igns involving the musculoskeletal system [facility] 2025-05-14 09:47 Altered mental status, unspecif ied [facility] 2025-05-14 09:47 Abrasion of other part of head, initial encounter [facility] 2025-05-14 09:47 Laceration without f oreign body of scalp, initial encounter [facility] 2025-05-14 09:47 Concussion without l oss of consciousness, initial encounter [facility] 2025-05-14 09:47 Unspecified injury of head, ini [facility]ial encounter [facility] 2025-05-14 09:47 Laceration without f oreign body of left forearm, initial [facility] 2025-05-17 12:03 Pain in left finger(s) [facility] 2025-05-17 12:03 Other specified cough [facility] 2025-05-17 12:03 Unspecified abdominal pain [facility] 2025-05-17 12:03 Diarrhea, unspecified [facility] 2025-05-17 12:03 Other symptoms and s igns involving the musculoskeletal system [facility]25-05-17 12:03 Altered mental status, unspecif ied [facility] 2025-05-17 12:03 Abrasion of other part of head, [facility] 2025-05-17 12:03 Laceration without f oreign body of scalp, [facility] 2025-05-17 12:03 Concussion without l oss of consciousness, [facility] 2025-05-17 12:03 Unspecified injury of head, ini [facility]ial [facility] 2025-05-17 12:03 Laceration without f oreign body of left forearm, initial [facility] 2025-05-19 16:13 [facility] 2025-05-19 16:36 [facility] 2025-05-21 08:57 Pain in left hip [facility] 2025-05-22 10:49 [facility] 2025-05-22 10:49 Left lower quadrant [facility] 2025-05-22 10:49 Repeated falls [facility] 2025-05-30 13:14 Left lower quadrant pain [facility] Results/Labs test date facility value unit notes Result panel 1 SARS-CoV-2 -RESP PCR PANEL 2025-03-24 14:54 [facility] NOT DETECTED (missing) A negative test result for this test indicates that SARS-CoV-2 RNA was not present in the specimen above the limit of detection. Testing performed on the [employer] RP2.1 Panel, a multiplexed nucleic acid repiratory panel. Negative results do not preclude infection with SARS-CoV-2 virus and should not be the sole basis of a patient management decision. In some patients repeat testing at various time points may be necessary for virus detection. False-negative results may arise from improper sample collection, degradation of viral RNA during shipping or storage, the presence of PCR inhibitors, and/or mutation in the SARS-CoV-2 virus. INFLUENZA A- RESP PCR PANEL 2025-03-24 14:54 [facility] NOT DETECTED (missing) Influenza A including subtypes H1, H3, and H1-2009 not detected by the [employer] RP2.1 Panel, a multiplexed nucleic acid test intended for the simultaneous qualitative detection and differentiation of nucleic acids from multiple viral and bacterial respiratory organisms. B. PARAPERTUSSIS- RESP PCR KIMBLE 2025-03-24 14:54 [facility] NOT DETECTED (missing) Negative results for this organism do not preclude infection with this organism and may require additional laboratory testing (e.g., bacterial and viral culture, immunofluorescence, and radiography) when evaluating a patient with possible respiratory tract infection. B. PERTUSSIS- RESP PCR PANEL 2025-03-24 14:54 [facility] NOT DETECTED (missing) Negative results for this organism do not preclude infection with this organism and may require additional laboratory testing (e.g., bacterial and viral culture, immunofluorescence, and radiography) when evaluating a patient with possible respiratory tract infection. C. PNEUMONIAE- RESP PCR PANEL 2025-03-24 14:54 [facility] NOT DETECTED (missing) Negative results for this organism do not preclude infection with this organism and may require additional laboratory testing (e.g., bacterial and viral culture, immunofluorescence, and radiography) when evaluating a patient with possible respiratory tract infection. M. PNEUMONIAE- RESP PCR PANEL 2025-03-24 14:54 [facility] NOT DETECTED (missing) Negative results for this organism do not preclude infection with this organism and may require additional laboratory testing (e.g., bacterial and viral culture, immunofluorescence, and radiography) when evaluating a patient with possible respiratory tract infection. CORONAVIRUS 229E-RESP PCR 2025-03-24 14:54 [facility] NOT DETECTED (missing) Negative results in the setting ofa respiratory illness may be due to infection with pathogens not detected by this test, or lower respiratory tract infection that may not be detected by nasopharyngeal specimen. CORONAVIRUS HKU1-RESP PCR 2025-03-24 14:54 [facility] NOT DETECTED (missing) Negative results in the setting ofa respiratory illness may be due to infection with pathogens not detected by this test, or lower respiratory tract infection that may not be detected by nasopharyngeal specimen. CORONAVIRUS [id number] PCR 2025-03-24 14:54 [facility] NOT DETECTED (missing) Negative results in the setting ofa respiratory illness may be due to infection with pathogens not detected by this test, or lower respiratory tract infection that may not be detected by nasopharyngeal specimen. CORONAVIRUS [id number] PCR 2025-03-24 14:54 [facility] NOT DETECTED (missing) Negative results in the setting ofa respiratory illness may be due to infection with pathogens not detected by this test, or lower respiratory tract infection that may not be detected by nasopharyngeal specimen. HUMAN METAPNEUMOVIRUS 2025-03-24 14:54 [facility] NOT DETECTED (missing) Negative results in the setting ofa respiratory illness may be due to infection with pathogens not detected by this test, or lower respiratory tract infection that may not be detected by nasopharyngeal specimen. INFLUENZA B - RESP PCR PANEL 2025-03-24 14:54 [facility] NOT DETECTED (missing) Negative results in the setting ofa respiratory illness may be due to infection with pathogens not detected by this test, or lower respiratory tract infection that may not be detected by nasopharyngeal specimen. PARAINFLUENZA VIRUS 1 2025-03-24 14:54 [facility] NOT DETECTED (missing) Negative results in the setting ofa respiratory illness may be due to infection with pathogens not detected by this test, or lower respiratory tract infection that may not be detected by nasopharyngeal specimen. PARAINFLUENZA VIRUS 2 2025-03-24 14:54 [facility] NOT DETECTED (missing) Negative results in the setting ofa respiratory illness may be due to infection with pathogens not detected by this test, or lower respiratory tract infection that may not be detected by nasopharyngeal specimen. PARAINFLUENZA VIRUS 3 2025-03-24 14:54 [facility] NOT DETECTED (missing) Negative results in the setting ofa respiratory illness may be due to infection with pathogens not detected by this test, or lower respiratory tract infection that may not be detected by nasopharyngeal specimen. PARAINFLUENZA VIRUS 4 2025-03-24 14:54 [facility] NOT DETECTED (missing) Negative results in the setting ofa respiratory illness may be due to infection with pathogens not detected by this test, or lower respiratory tract infection that may not be detected by nasopharyngeal specimen. RHINOVIRUS/ENTEROVI PETER 2025-03-24 14:54 [facility] NOT DETECTED (missing) Negative results in the setting ofa respiratory illness may be due to infection with pathogens not detected by this test, or lower respiratory tract infection that may not be detected by nasopharyngeal specimen. RSV- RESP PCR PANEL 2025-03-24 14:54 [facility] NOT [facility] (missing) Negative results in the setting ofa respiratory illness may be due to infection with pathogens not detected by this test, or lower respiratory tract infection that may not be detected by nasopharyngeal specimen. ADENOVIRUS - RESP PCR PANEL 2025-03-24 14:54 [facility] NOT DETECTED (missing) Y Negative results in the setting ofa respiratory illness may be due to infection with pathogens not detected by this test, or lower respiratory tract infection that may not be detected by nasopharyngeal specimen. Result panel 2 LIPASE 2025-03-24 15:18 [facility] < 10 u/l As of December 2022 testing method has changed, this may include reference ranges. NUCLEATED RED BLOOD CELLS AUTO 2025-03-24 15:18 [facility] 0.0 /100wbc (missing) EOSINOPHILS # (AUTO) 2025-03-24 15:18 [facility] 0.0 10 3/ul (missing) NRBC ABSOLUTE COUNT (AUTO) 2025-03-24 15:18 [facility] 0.00 x10 3/ul (missing) BASOPHILS # (AUTO) 2025-03-24 15:18 [facility] 0.1 10 3/ul (missing) LYMPHOCYTES # (AUTO) 2025-03-24 15:18 [facility] 0.4 10 3/ul (missing) MONOCYTES # (AUTO) 2025-03-24 15:18 [facility] 0.8 10 3/ul (missing) CREATININE 2025-03-24 15:18 [facility] 1.0 mg/dl As of December 2022 testing method has changed, this may include reference ranges. ALBUMIN/GLOBULIN RATIO 2025-03-24 15:18 [facility] 1.9 (missing) (missing) CHLORIDE 2025-03-24 15:18 [facility] 107 mmol/l As of December 2022 testing method has changed, this may include reference ranges. ANION GAP 2025-03-24 15:18 [facility] 12.0 (missing ) (missing) HGB - HEMOGLOBIN 2025-03-24 15:18 [facility] 12.4 g /dl (missing) GLUCOSE 2025-03-24 15:18 [facility] 120 mg/dl As of December 2022 testing method has changed, this may include reference ranges. RED CELL DISTRIBUTION WIDTH 2025-03-24 15:18 [facility] 13.4 % (missing) SODIUM 2025-03-24 15:18 [facility] 140 mmol/l (missing) NEUTROPHILS # (AUTO) 2025-03-24 15:18 [facility] 16.4 10 3/ul (missing) PLT - PLATELET COUNT 2025-03-24 15:18 [facility] 163 10 3/ul (missing) WHITE BLOOD COUNT 2025-03-24 15:18 [facility] 17.7 x10 3/ul (missing) GLOBULIN 2025-03-24 15:18 [facility] 2.2 g/dl (missing) AST ASPARTATE AMINOTRANSFERASE 2025-03-24 15:18 [facility] 21 iu/l As of December 2022 testing method has changed, this may include reference ranges. CARBON DIOXIDE - CO2 2025-03-24 15:18 [facility] 21 mmol/l As of December 2022 testing method has changed, this may include reference ranges. BUN - BLOOD UREA NITROGEN 2025-03-24 15:18 [facility] 22 mg/dl As of Dec testing method has changed, this may include reference ranges. POTASSIUM 2025-03-24 15:18 [facility] 3.1 mmol/l As of December 2022 testing method has changed, this may include reference ranges. BILIRUBIN,TOTAL 2025-03-24 15:18 [facility] 3.6 mg /dl As of December 2022 testing method has changed, this may include reference ranges. MEAN CORPUSCULAR HEMOGLOBIN 2025-03-24 15:18 [facility] 30.3 pg (missing) MEAN CORPUSCULAR HGB CONC 2025-03-24 15:18 [facility] 32.7 g/dl (missing) HCT - HEMATOCRIT 2025-03-24 15:18 [facility] 37.9 % (missing) RED BLOOD COUNT 2025-03-24 15:18 [facility] 4.09 10 6/ul (missing) ALBUMIN 2025-03-24 15:18 [facility] 4.2 g/dl As of December 2022 testing method has changed, this may include reference ranges. TOTAL PROTEIN 2025-03-24 15:18 [facility] 6.4 g/dl As of December 2022 testing method has changed, this may include reference ranges. ALT ALANINE AMINOTRANSFERASE 2025-03-24 15:18 [facility] 7 iu/l As of December 2022 testing method has changed, this may include reference ranges. GFR - MDRD 2025-03-24 15:18 [facility] 70 (lani marin) The IDOH-traceable MDRD Study Equation has been validated extensively in and populations between the ages of 18 and 70 with impaired kidney function (eGFR < 60 mL/min/1.73m2) and has shown good performance for patients with all common causes of kidney disease. Although this equation has not been validated for patients older than 70, an MDRD-derived eGFR may still be a useful tool for providers caring for patients older than 70. References: http://www.nkdep. nih.gov/lab-evalu ation/gfr/creatin ine-stand ardization, last updated August 2011. CALCIUM 2025-03-24 15:18 [facility] 9.2 mg/dl As of December 2022 testing method has changed, this may include reference ranges. MEAN PLATELET VOLUME 2025-03-24 15:18 [facility] 9.8 fl (missing) MEAN CORPUSCULAR VOLUME 2025-03-24 15:18 [facility] 92.7 fl (missing) ALKALINE PHOSPHATASE 2025-03-24 15:18 [facility] 95 iu/l As of December 2022 testing method has changed, this may include reference ranges. Result panel 3 WBC,URINE 2025-03-24 16:58 [facility] 0-3 /hpf (missing) UROBILINOGEN,URIN E 2025-03-24 16:58 [facility] 0.2 (NORMAL) e.u./dl (missing) SPECIFIC GRAVITY,URINE 2025-03-24 16:58 [facility] 1.020 (missing) (missing) RBC,URINE 2025-03-24 16:58 [facility] 11-25 /hpf (missing) PH,URINE 2025-03-24 16:58 [facility] 6.0 ph (missing) SQUAMOUS EPITHELIAL CELL,UR 2025-03-24 16:58 [facility] FEW Squamous (missing) (missing) BACTERIA,URINE 2025-03-24 16:58 [facility] Few /hpf (missing) CLARITY,URINE 2025-03-24 16:58 [facility] HAZY (missing) (missing) URINE MICROSCOPIC INDICATED? 2025-03-24 16:58 [facility] INDICATED (missing) (missing) OCCULT BLOOD,URINE 2025-03-24 16:58 [facility] MODERATE (missing) (missing) LEUKOCYTE ESTERASE, URINE 2025-03-24 16:58 [facility] NEGATIVE (missing) (missing) NITRITE,URINE 2025-03-24 16:58 [facility] NEGATIVE (missing) (missing) BILIRUBIN,URINE 2025-03-24 16:58 [facility] NEGATIVE (missing) Bilirubin can be influenced by color interference. Please correlate positive results with clinical presentation GLUCOSE, URINE (UA) 2025-03-24 16:58 [facility] NEGATIVE mg/dl (missing) KETONES,URINE (UA) 2025-03-24 16:58 [facility] NEGATIVE mg/dl (missing) PROTEIN,URINE 2025-03-24 16:58 [facility] NEGATIVE mg/dl (missing) UR CULTURE IF IND 2025-03-24 16:58 [facility] NOT INDICATED (missing) (missing) COLOR,URINE 2025-03-24 16:58 [facility] YELLOW (missing) URINE CATHETERIZED Result panel 4 NUCLEATED RED BLOOD CELLS AUTO 2025-05-19 14:38 [facility] 0.0 /100wbc (missing) BASOPHILS # (AUTO) 2025-05-19 14:38 [facility] 0.0 10 3/ul (missing) NRBC ABSOLUTE COUNT (AUTO) 2025-05-19 14:38 [facility] 0.00 x10 3/ul (missing) EOSINOPHILS # (AUTO) 2025-05-19 14:38 [facility] 0.2 10 3/ul (missing) MONOCYTES # (AUTO) 2025-05-19 14:38 [facility] 0.4 10 3/ul (missing) CREATININE 2025-05-19 14:38 [facility] 0.9 mg/dl As of December 2022 testing method has changed, this may include reference ranges. LYMPHOCYTES # (AUTO) 2025-05-19 14:38 [email or web address] 1.1 10 3/ul (missing) ALBUMIN/GLOBULIN RATIO 2025-05-19 14:38 [facility] 1.8 (missing) (missing) MEAN PLATELET VOLUME 2025-05-19 14:38 [facility] 10.1 fl (missing) CHLORIDE 2025-05-19 14:38 [facility] 105 mmol/l As of December 2022 testing method has changed, this may include reference ranges. HGB - HEMOGLOBIN 2025-05-19 14:38 [facility] 11.1 g/dl (missing) GLUCOSE 2025-05-19 14:38 [facility] 124 mg/dl As of December 2022 testing method has changed, this may include reference ranges. RED CELL DISTRIBUTION WIDTH 2025-05-19 14:38 [facility] 13.9 % (missing) SODIUM 2025-05-19 14:38 [facility] 138 mmol/l (missing) PLT - PLATELET COUNT 2025-05-19 14:38 [facility] 165 10 3/ul (missing) BILIRUBIN,TOTAL 2025-05-19 14:38 [facility] 2.1 mg/dl As of December 2022 testing method has changed, this may include reference ranges. GLOBULIN 2025-05-19 14:38 [facility] 2.4 g/dl (missing) BUN - BLOOD UREA NITROGEN 2025-05-19 14:38 [facility] 20 mg/dl As of December 2022 testing method has changed, this may include reference ranges. CARBON DIOXIDE - CO2 2025-05-19 14:38 [facility] 26 mmol/l As of December 2022 testing method has changed, this may include reference ranges. MEAN CORPUSCULAR HEMOGLOBIN 2025-05-19 14:38 [facility] 29.8 pg (missing) RED BLOOD COUNT 2025-05-19 14:38 [facility] 3.73 10 6/ul (missing) MEAN CORPUSCULAR HGB CONC 2025-05-19 14:38 [facility] 31.3 g/dl (missing) AST ASPARTATE AMINOTRANSFERASE 2025-05-19 14:38 [facility] 34 iu/l As of December 2022 testing method has changed, this may include reference ranges. HCT - HEMATOCRIT 2025-05-19 14:38 [facility] 35.5 % (missing) POTASSIUM 2025-05-19 14:38 [facility] 4.0 mmol/l As of December 2022 testing method has changed, this may include reference ranges. ALBUMIN 2025-05-19 14:38 [facility] 4.2 g/dl As of December 2022 testing method has changed, this may include reference ranges. NEUTROPHILS # (AUTO) 2025-05-19 14:38 [facility] 5.2 10 3/ul (missing) TOTAL PROTEIN 2025-05-19 14:38 [facility] 6.6 g/dl As of December 2022 testing method has changed, this may include reference ranges. WHITE BLOOD COUNT 2025-05-19 14:38 [facility] 6.9 x10 3/ul (missing) ALT ALANINE AMINOTRANSFERASE 2025-05-19 14:38 [facility] 7 iu/l As of December 2022 testing method has changed, this may include reference ranges. ANION GAP 2025-05-19 14:38 [facility] 7.0 (missing) (missing) GFR - MDRD 2025-05-19 14:38 [facility] 79 (missing) The IDMS-traceable MDRD Study Equation has been validated extensively in and populations between the ages of 18 and 70 with impaired kidney function (eGFR < 60 mL/min/1.73m2) and has shown good performance for patients with all common causes of kidney disease. Although this equation has not been validated for patients older than 70, an MDRD-derived eGFR may still be a useful tool for providers caring for patients older than 70. References: http://www.nkdep. nih.gov/lab-evalu ation/gfr/creatin ine-stand ardization, last updated August 2011. CALCIUM 2025-05-19 14:38 [facility] 9.0 mg/dl As of December 2022 testing method has changed, this may include reference ranges. ALKALINE PHOSPHATASE 2025-05-19 14:38 [facility] 90 iu/l As of December 2022 testing method has changed, this may include reference ranges. MEAN CORPUSCULAR VOLUME 2025-05-19 14:38 [facility] 95.2 fl (missing) Result panel 5 UROBILINOGEN,URINE 2025-05-19 15:06 [facility] 0.2 (NORMAL) e.u./dl (missing) SPECIFIC GRAVITY,URINE 2025-05-19 15:06 [facility] 1.025 (missing) (missing) PH,URINE 2025-05-19 15:06 [facility] 6.0 ph (missing) CLARITY,URINE 2025-05-19 15:06 [facility] CLEAR (missing) (missing) LEUKOCYTE ESTERASE, URINE 2025-05-19 15:06 [facility] NEGATIVE (missing) (missing) NITRITE,URINE 2025-05-19 15:06 [facility] NEGATIVE (missing) (missing) OCCULT BLOOD,URINE 2025-05-19 15:06 [facility] NEGATIVE (missing) (missing) BILIRUBIN,URINE 2025-05-19 15:06 [facility] NEGATIVE (missing) Bilirubin can be influenced by color interference. Please correlate positive results with clinical presentation GLUCOSE, URINE (UA) 2025-05-19 15:06 [facility] NEGATIVE mg/dl (missing) KETONES,URINE (UA) 2025-05-19 15:06 [facility] NEGATIVE mg/dl (missing) PROTEIN,URINE 2025-05-19 15:06 [facility] NEGATIVE mg/dl (missing) UR CULTURE IF IND 2025-05-19 15:06 [facility] NOT INDICATED (missing) (missing) URINE MICROSCOPIC INDICATED? 2025-05-19 15:06 [facility] NOT INDICATED (missing) (missing) COLOR,URINE 2025-05-19 15:06 [facility] YELLOW (missing) URINE CLEAN CATCH Social History date description facility
[2025-06-08 11:31] LABS: ALT ALANINE AMINOTRANSFERASE 4.0 IU/L (10-60); AST ASPARTATE AMINOTRANSFERASE 22.0 IU/L (10-42); BUN - BLOOD UREA NITROGEN 22.0 mg/dL (6-20); CARBON DIOXIDE - CO2 22.0 mmol/L (21-32); CREATININE 0.8 mg/dL (0.6-1.3); GFR - MDRD 91.0 (>89)
--- NOTE | 2025-06-08 12:16 | CT Report ---
PROCEDURE: CT Head WO INDICATIONS: fall TECHNIQUE: CT of the head was performed, without intravenous contrast. Reformats: Coronal and sagittal. For radiation dose reduction, the following was used: automated exposure control, adjustment of mA and/or kV according to patient size. COMPARISON: CT head dated 05/19/2025 FINDINGS: Image quality: Diagnostic. CSF spaces: Basal cisterns are patent. Development of a sizable left parafalcine subdural hematoma which measures 14 mm in thickness. Reference axial image 23 of series 2 and coronal image 21 of series 6. Ventricles are normal in size and shape. Brain: 14 mm maximum thickness acute left parafalcine subdural hematoma without significant mass effect or shift. Nance-white matter interface is normal. Age appropriate volume loss and periventricular white matter hypoattenuation, likely chronic ischemic change. 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 Skull and face: Calvarium and visualized facial bones are intact, without suspicious lesions. Sinuses: Visualized sinuses and mastoids are clear. IMPRESSION: Acute left parafalcine subdural hematoma measuring 14 mm without significant mass effect or midline shift. Old right parietal infarct. Above discussed with Keenan Lagunas MD at 06/08/2025 12:10 PM PST. Reviewed by: Pernell Jensen MD on 06/08/2025 12:13 PM PST Approved by: Pernell Jensen MD on 06/08/2025 12:13 PM PST Station ID: [id number]
--- NOTE | 2025-06-08 12:29 | XRAY Report ---
PROCEDURE: XR Elbow 3+V BL INDICATIONS: B elbow inj TECHNIQUE: 3 views of each elbow COMPARISON: None. FINDINGS: Bones: No acute fractures or dislocations. No suspicious bony lesions. Joint spaces are preserved. The radiocapitellar and anterior humeral lines are in expected alignment. Soft tissues: Soft tissue swelling at the expected location of the olecranon bursa bilaterally, more pronounced on the left. No effusion. IMPRESSION: Soft tissue swelling which could represent olecranon bursitis. Reviewed by: Clay Masters MD on 06/08/2025 12:26 PM PST Approved by: Clay Masters MD on 06/08/2025 12:26 PM [facility] [[email or web address]] Station ID: [id number]
--- NOTE | 2025-06-08 12:42 | CT Report ---
PROCEDURE: CT Cervical Spine WO INDICATIONS: fall TECHNIQUE: Noncontrast images acquired from the skull base to the T4 level. Sagittal and coronal reformats were then constructed. For radiation dose reduction, the following was used: automated exposure control, adjustment of mA and/or kV according to patient size. COMPARISON: 05/19/2026 FINDINGS: Image quality: Excellent. Bones: No fractures or dislocations. Relatively mild cervical spondylosis. Interval increase in reversal of normal cervical lordosis. Visualized superior ribs are intact. Soft tissues: Prevertebral soft tissues are normal in thickness. No paravertebral hematomas. No apical pneumothoraxes. IMPRESSION: No acute, displaced fracture or traumatic subluxation. Relatively mild cervical spondylosis. Interval increase in reversal of normal cervical lordosis. Reviewed by: Pernell Jensen MD on 06/08/2025 12:39 PM PST Approved by: Pernell Jensen MD on 06/08/2025 12:39 PM PST Station ID: [id number]
--- NOTE | 2025-06-08 12:46 | CT Report ---
PROCEDURE: CT Lumbar Spine WO INDICATIONS: back inj TECHNIQUE: Noncontrast images acquired from the T12 level to the sacrum. Sagittal and coronal reformats were constructed. For radiation dose reduction, the following was used: automated exposure control, adjustment of mA and/or kV according to patient size. COMPARISON: CT abdomen and pelvis with contrast dated 03/24/2025 FINDINGS: Image quality: Excellent. Bones: There is normal bony alignment. No acute vertebral body compression fractures. Unchanged marked compression of T12 with bony retropulsion and moderate canal stenosis. No suspicious lytic or blastic bony lesions. Central spinal caliber is of normal overall caliber. No pars defects. T11-T12: Marked chronic compression of T12 with bony retropulsion measuring approximately 6 mm is unchanged. There is associated moderate canal stenosis. No foraminal stenosis. T12-L1: No canal stenosis or foraminal stenosis. L1-L2: No canal stenosis or foraminal stenosis. L2-L3: No canal stenosis or foraminal stenosis. L3-L4: Chronic disc height loss. Posterior disc osteophyte complex. Facet hypertrophy. Canal stenosis is likely mild. No foraminal stenosis. L4-L5: Chronic posterior inferior disc protrusion with air present within the protruded disc material. No significant canal stenosis or foraminal stenosis. L5-S1: Normal in appearance. Soft tissues: No retroperitoneal masses or hematomas. Visualized aorta is normal in caliber. IMPRESSION: Chronic marked T12 compression with posterior retropulsion of the superior endplate resulting in moderate canal stenosis. No acute compression fractures. Reviewed by: Pernell Jensen MD on 06/08/2025 12:43 PM PST Approved by: Pernell Jensen MD on 06/08/2025 12:43 PM PST Station ID: [id number]
--- NOTE | 2025-06-08 12:50 | CT Report ---
PROCEDURE: CT Chest WO INDICATIONS: Cough, possible chest injury TECHNIQUE: A CT scan of the chest was performed. Intravenous contrast media was not administered. Images were recorded and evaluated at appropriate window settings. Reformats: axial MIP of the chest, coronal and sagittal. For radiation dose reduction, the following was used: automated exposure control, adjustment of mA and/or kV according to patient size. COMPARISON: Chest film dated 09/21/2024 FINDINGS: Image quality: Diagnostic. Chest wall and lower neck: No thyroid nodule which requires sonographic follow up. No axillary or supraclavicular adenopathy by size. Lungs and pleura: No consolidation. No pleural effusions. No pneumothorax. No suspicious pulmonary nodules which require follow up. Bibasilar bronchial wall thickening and bronchiectasis. Mediastinum: Heart size is normal. Severe coronary artery calcifications no pericardial effusion. No large vessel abnormality. No mediastinal adenopathy by size criteria. Bones: No aggressive osseous abnormality. Chronic marked T12 compression with bony retropulsion and moderate canal stenosis at T11-T12. Interval mild inferior endplate compression of T8. This compression is of uncertain chronicity, potentially acute or subacute. Upper Abdomen: Unremarkable. IMPRESSION: 1. Bibasilar bronchial wall thickening and bronchiectasis. 2. No acute pulmonary infiltrates. 3. Chronic marked compression of T12 with bony retropulsion and moderate canal stenosis at T11-T12. 4. Interval mild inferior endplate compression of T8, of uncertain chronicity, potentially acute or subacute. 5. Severe coronary artery calcifications. Comment: Consider nonemergent thoracic spine MRI to determine the acuity versus chronicity of this fracture. Reviewed by: Pernell Jensen MD on 06/08/2025 12:47 PM PST Approved by: Pernell Jensen MD on 06/08/2025 12:47 PM PST Station ID: [id number]
--- NOTE | 2025-06-08 12:57 | CT Report ---
PROCEDURE: CT Pelvis WO INDICATIONS: sacrum inj TECHNIQUE: Noncontrast CT was obtained through the bony pelvis, with coronal and sagittal reformatting. For radiation dose reduction, the following was used: automated exposure control, adjustment of mA and/or kV according to patient size. COMPARISON: None. FINDINGS: Image quality: Excellent. Bones: No sacral insufficiency fracture or other fracture noted involving the pelvis and hips. Lumbar degenerative change. There is a degree of canal stenosis at L3-L4 and L4-L5. Soft tissues: Moderate rectal fecal impaction with associated stercoral colitis. No significant sequelae of acute trauma. IMPRESSION: 1. No acute bony abnormality. 2. There is a degree of canal stenosis at L3-L4 and L4-L5. 3. Moderate rectal fecal impaction with associated stercoral colitis. Reviewed by: Pernell Jensen MD on 06/08/2025 12:54 PM PST Approved by: Pernell Jensen MD on 06/08/2025 12:54 PM [facility] Station ID: [id number]
[2025-06-08] MEDS: SALINE ENEMA 133 ML BOTTLE RC STA (14:33)
--- NOTE | 2025-06-08 16:43 | CT Report ---
PROCEDURE: CT Head WO INDICATIONS: Reevaluate subdural hemorrhage TECHNIQUE: CT of the head was performed, without intravenous contrast. Reformats: Coronal and sagittal. For radiation dose reduction, the following was used: automated exposure control, adjustment of mA and/or kV according to patient size. COMPARISON: 06/08/2025 at 1133 hours FINDINGS: Image quality: Diagnostic. CSF spaces: Again noted is a left parafalcine subdural hematoma which is acute. There is no evidence of increased size of subdural hematoma or additional areas of hemorrhage. On previous coronal image 22 of series 6 the thickness of the subdural was 14 mm. On current coronal image 20 of series 6 the subdural has a thickness of 13 mm. On previous axial image 23 of series 2 the subdural hematoma extended 7.7 cm in anterior posterior dimension and was 14 mm thick. On current image 21 of axial series 2, the length of the subdural is 6.8 cm in the thickness is 12 mm. Ventricles are normal in size and shape. Brain: No midline shift. The acute left parafalcine subdural hematoma has not increased in size, and there are no new areas of hemorrhage. Nance-white matter interface is normal. 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 Skull and face: Calvarium and visualized facial bones are intact, without suspicious lesions. Sinuses: Visualized sinuses and mastoids are clear. IMPRESSION: Stable size of the acute left parafalcine subdural hematoma. No new areas of hemorrhage. Reviewed by: Pernell Jensen MD on 06/08/2025 4:39 PM PST Approved by: Pernell Jensen MD on 06/08/2025 4:39 PM PST Station ID: [id number]
[2025-06-08] MEDS ORDERED: ONDANSETRON 4 MG/2 ML VIAL IVP PRN (17:21)
[2025-06-08] MEDS ORDERED: ACETAMINOPHEN 500 MG TABLET PO PRN (17:21)
--- NOTE | 2025-06-08 17:39 | HISTORY & PHYSICAL EXAMINATION ---
Chief Complaint Chief Complaint Chief Complaint: Falls, recurrent History of Present Illness Admitted From Admitted From:: ED History Obtained From Records Reviewed: [facility] History obtained from: Patient, Family, ED Provider History of Present Illness HPI Comment/Other: This an 89-year-old gentleman resides in memory care at baseline due to Parkinson's dementia who presents after multiple ground-level falls and is found to have a subdural hematoma on CT of his head. This was stable on repeat imaging, without any advancement. His reports that he has been having nearly daily falls over the last 2 weeks. Falling more frequently. Unclear etiology of his increased falls. Most recently he has injured both of his elbows. He also reports buttock pain. In the ED, he was found to have a subdural hematoma on his CT. He is also found to have some soft tissue injuries as well as fecal impaction on his scans incidentally. The ED provider repeated his CT head after 4 hours without any change in size. The patient's and his POA was very adamant that she would not want to transfer out for any further procedure. No neurosurgery consult was made. Discussed with ED provider, will admit the patient to observation status for further neuromonitoring overnight as well as PT evaluation which may be limited due to the holiday week. We may have to have him ambulate with nursing and make an assessment. Patient is DNR/selective treatment. POLST on file. His surrogate decision maker is his Obie. No formal POA paperwork. Meds/Allgy Home Medications Ambulatory Orders Medication Instructions Recorded Confirmed cholecalciferol (vitamin D3) 25 50 mcg (2 x 25 mcg (1, 000 unit)) 02/15/24 04/19/25 mcg (1,000 unit) tablet PO DAILY walker 03/23/24 02/28/25 pramipexole 2.25 mg 2.25 mg PO DAILY 05/22/24 tablet,extended release 24 hr (Mirapex ER) rivastigmine tartrate 1.5 mg 1.5 mg PO QID 05/22/24 capsule atorvastatin 80 mg tablet (Lipitor) 80 mg PO DAILY #90 tabs 08/21/24 04/19/25 carbidopa 25 mg-levodopa 100 mg 1 tab PO QID #240 tabs 08/21/24 02/28/25 tablet mecobalamin (vitamin B12) 1,000 500 mcg PO QDAY 02/28/25 mcg chewable tablet (B12 Active) diphenoxylate-atropine 2.5 1 tab PO Q6H PRN diarrhea # 90 tabs 11/21/24 02/28/25 mg-0.025 mg tablet (Lomotil) melatonin 1 mg tablet 3 mg PO HS PRN sleep 5 02/28/25 clopidogrel 75 mg tablet 75 mg PO DAILY #90 tabs 08/0804/19/25 risperidone [Risperdal] PO QPM 02/28/25 02/28/25 acetaminophen 325 mg tablet 325 mg PO Q4H PRN fever or pain #1 04/19/25 04/19/25 (Tylenol) tab cyanocobalamin (vitamin B-12) 500 500 mcg PO QDAY 12/0604/19/25 mcg tablet magnesium citrate,mag oxide 250 mg mg PO 04/19/2512/06 capsule quetiapine 25 mg tablet (Seroquel) 25 mg PO QDAY 04/1904/19/25 fluticasone propionate 50 2 spray intranasal DAILY PRN nasal 05/07/25 mcg/actuation nasal congestion #16 grams spray,suspension (Flonase Allergy Relief) vibegron 75 mg tablet (Gemtesa) 75 mg PO QDAY #30 tabs 05/17/25 05/17/25 diclofenac sodium 1 % topical gel 2 g topical QID #100 grams 05/19/25 (Voltaren Arthritis Pain) Allergies Allergies Allergy/AdvReac Type Severity Reaction Status Date / Time milk Allergy Unknown Unknown Verified 06/08/25 09:30 montelukast Allergy Unknown Unknown Verified 06/08/25 09:30 adhesive Allergy Rash Verified 06/08/25 09:30 [facility] Active Problems All Active Problems (Updated 06/08/25 @ 17:16 by Keenan Lagunas MD) Subdural hemorrhage (Acute) Altered mental status (Acute) Acute pain of left hip (Acute) Fall (Acute) Nasal congestion (Acute) Atopic dermatitis (Acute) Seborrheic keratoses (Acute) Hallucinations, unspecified (Chronic) 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) Constipation (Chronic) Parkinson's disease with dyskinesia and fluctuating manifestations (Chronic) Restless leg syndrome (Chronic) 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) Difficulty swallowing (Chronic) Orthostatic hypotension due to Parkinson's disease (Chronic) At high risk for falls (Chronic) Ambulatory dysfunction (Chronic) Anemia (Chronic) Hyperlipidemia (Chronic) Bilateral carotid artery stenosis (Chronic) Cerebrovascular disease (Chronic) Vertigo (Chronic) Medical History Medical History (Updated 06/08/25 @ 17:16 by Keenan Lagunas MD) Allergic rhinitis Transient ischemic attack Malaise and fatigue Dehydration Acute metabolic encephalopathy Elevated bilirubin Epididymitis Intermittent constipation Social History Social History (Updated 04/19/25 @ 08:25 by ROSIE MATHIAS LPN) Smoking Status: Never smoker If you are a former smoker, when did you quit? (Date/Year): Never smoked Do you dip or chew tobacco?: No (CATE) Do you vape?: No Patient requests smoking cessation consult: No Initiate information on smoking cessation: No Living arrangement: At home Marital Status: Living Condition: With spouse/s.o. Support Person: Yes Living Situation Details: lives in memory care Has a Durable Power of Kitchen Worker for Health Care?: Yes DPOA on file?: No Has Health Care Directive?: Yes Health Care Directive on file?: No Level: Assisted Do you feel safe in your home environment?: Yes History of physical, verbal, emotional, or financial abuse?: No ETOH Use: None Frequency: Occasional Substance Use: denies use POLST Patient has POLST: No Exam Exam Vital Signs: Vital Signs x48h Temp Pulse Resp BP Pulse Ox 06/08/25 17:15 67 18 136/60 H 99 06/08/25 17:00 59 L 18 126/51 L 99 06/08/25 16:45 70 18 140/58 H 99 06/08/25 16:30 67 18 138/59 H 99 06/08/25 16:15 71 18 134/66 H 98 06/08/25 16:00 73 18 140/63 H 98 06/08/25 15:45 63 18 133/65 H 99 06/08/25 15:30 87 18 125/64 97 06/08/25 15:15 74 18 127/65 98 06/08/25 15:00 63 18 114/48 L 98 06/08/25 14:49 75 130/71 98 06/08/25 14:34 65 25 H 132/61 H 99 06/08/25 14:20 76 25 H 119/72 98 06/08/25 14:05 61 24 154/60 H 98 06/08/25 13:50 64 17 118/71 98 06/08/25 13:34 64 25 H 140/60 H 99 06/08/25 13:20 61 22 142/63 H 98 06/08/25 13:04 64 25 H 126/63 99 06/08/25 12:49 71 28 H 126/66 100 06/08/25 12:35 67 16 140/65 H 99 06/08/25 12:20 62 106/52 L 99 06/08/25 12:06 65 130/79 89 L 06/08/25 11:22 36.6 C 74 14 125/75 93 GEN: No acute distress. Covered in bruises. Somnolent. HEENT: NC/AT, normal appearance of external ears and nose. Hearing baseline. Cardiac: Regular rate and rhythm, no murmurs. Euvolemic on exam. Pulm: Lungs CTA bilaterally, no cough, no wheezes. Normal effort on room air. Abdomen: Soft, nontender, nondistended. No rebound or guarding Extremities: Moves all 4 extremities equally. Normal tone. Neuro: Face symmetric, CN II through XII intact grossly. No focal neurologic deficits. Psych: Oriented to self. Mood euthymic. Affect congruent. Conclusion/Plan Problem List (1) Subdural hemorrhage: Plan: Patient presents with multiple ground-level falls as below. He was found on admission to have a left parafalcine subdural hematoma measuring 14 mm. This was stable on repeat 4 hours later. With understanding of the patient's goals of care, and the fact that [place], neurosurgery was not consulted by the ED. - Discussed with ED provider, Dr. Landa. Decision to admit the patient to observation status. - Continue neurochecks every shift - Every 4 hours vitals - Repeat head CT for any acute focal deficit or hypersomnolence - Neurosurgical intervention is not within patient's goals of care. - Hold pharmacologic anticoagulation - Hold antiplatelets (2) Fall: Plan: Recurrent ground-level falls at home in the setting of his Parkinson's disease. He is more forgetful, and getting up without understanding his own deficits. He has ground-level falls injuring his elbows, buttocks, and apparently had head strike as above. Currently lives in assisted living, not in a senior living facility. - PT to evaluate - Family is contemplating what further resources for him, Including placement - Social work consult in place - Bed rails up at bedside - Bed alarm on - Management of delirium up as below - Pain management with topicals, Tylenol. Avoiding opiates if able. As needed oxycodone available for breakthrough (3) Parkinson's disease with dyskinesia and fluctuating manifestations: Plan: Advanced Parkinson's dementia. Best days at this point in time he will mobilize with a wheelchair and go on "walks". He was playing cards up until about a month prior to admission. 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 He was recently started on quetiapine. He is also been started on rivastigmine as of January. He has not previously been on Sinemet as well as pramipexole, but not recently. - Continue nightly 4 times daily rivastigmine - Continue nightly quetiapine - Hold off on other dopaminergic agents which may worsen hallucinations. - Consideration for orthostatic vital signs, but suspect positive given history - Avoid other blood pressure meds (4) Cerebrovascular disease: Plan: Patient with prior history of CVA. He is on clopidogrel and atorvastatin at baseline. - Will continue atorvastatin 80mg - Hold antiplatelets as above. (5) Constipation: Plan: Patient with evidence constipation including stercoral colitis on his pelvic CT scans. He has a history of constipation as well. He is on mag citrate as well as Lomotil in the outpatient world. Unclear why he is on Lomotil. He had a smear of stool on arrival to the floor. - Discontinue Lomotil indefinitely - Daily MiraLAX - Consider starting prokinetic laxative, i.e. senna - Rectal glycerin and bisacodyl suppositories available Qualifiers: Constipation type: unspecified constipation type Qualified Code(s): K 59.00 - Constipation, unspecified Plan By problem as above. I spent a total of 62 minutes in the care of this patient today. This time was spent reviewing labs, vital signs, imaging, interviewing and examining the patient, and discussing plan of care with them and their other care providers. Patient with acute injury that poses a threat to life or bodily function. Decision was made to admit the patient to observation status. [id number]. Lab Results 06/08/25 11:13 06/08/25 11:13 Diagnostic Imaging Results Diagnostic Imaging Results: positive Final report reviewed and Read independently
[2025-06-08] MEDS ORDERED: SODIUM CHLORIDE FLUSH 0.9% 10 ML SYRINGE IVP PRN (18:34)
[2025-06-08] MEDS ORDERED: BISACODYL 10 MG SUPP PR PRN (19:03)
[2025-06-08] MEDS ORDERED: GLYCERIN PEDIATRIC SUPP PR PRN (19:03)
[2025-06-08] MEDS: PRAMIPEXOLE 0.25 MG TABLET PO SCH (19:51)
[2025-06-08] MEDS: CARBIDOPA/LEVODOPA ER 25 MG/100 MG TABLET PO SCH (19:51)
[2025-06-08] MEDS: MELATONIN 3 MG TABLET PO SCH (21:08)
[2025-06-08] MEDS: DICLOFENAC SODIUM 1% GEL 50 GM TUBE TOP SCH (21:08)
[2025-06-09] MEDS: SODIUM CHLORIDE FLUSH 0.9% 10 ML SYRINGE IVP SCH (00:08)
[2025-06-09 06:48] LABS: HCT - HEMATOCRIT 32.1 % (42.0-52.0); HGB - HEMOGLOBIN 10.3 g/dL (14.0-18.0); MEAN PLATELET VOLUME 10.0 fL (7.4-11.4); NRBC ABSOLUTE COUNT (AUTO) 0.00 x10^3/uL; NUCLEATED RED BLOOD CELLS AUTO 0.0 /100WBC; PLT - PLATELET COUNT 146 10^3/uL (130-450); RED CELL DISTRIBUTION WIDTH 13.8 % (12.0-15.0)
[2025-06-09 07:13] LABS: BUN - BLOOD UREA NITROGEN 21.0 mg/dL (6-20); CARBON DIOXIDE - CO2 23.0 mmol/L (21-32); CREATININE 0.8 mg/dL (0.6-1.3); GFR - MDRD 91.0 (>89)
--- NOTE | 2025-06-09 07:38 | PROVIDER PROGRESS NOTE ---
Subjective Prog Note Date Prog Note Date: 06/09/25 Prog Note Time: 07:37 Subjective Subjective: No acute events overnight. Last evening, the patient was apparently coughing on thin liquids. His diet has been liberalized based on compassionate feedings. Pending speech evaluation. Vital signs normal. Labs remarkably normal this morning. In discussion with his , he has been choking on thin liquids for many months. Patient has remained quite somnolent during this hospitalization. He apparently is very active up until the last few days before his hospitalization. This may be all postconcussive or resulted in his brain bleed. It was clear with the family that he may not recover to that point again. See ACP note from today. Patient denies any specific pains. He gets agitated with nursing maneuvers. No acute changes in mentation. He had 2-3 episodes of agitation overnight, but was redirectable. Current Medications Current Medications Current Medications: Current Medications Generic Name Dose Route Start Last Admin Trade Name Freq PRN Reason Stop Dose Admin Acetaminophen 650 mg 06/08/25 18:34 Acetaminophen 325 Mg Tablet PO Q4H PRN fever or pain Atorvastatin Calcium 80 mg 06/09/25 09:00 Atorvastatin 40 Mg Tablet PO DAILY EMILY Bisacodyl 10 mg 06/08/25 19:03 Bisacodyl 10 Mg Supp VT DAILY PRN Constipation Cyanocobalamin 500 mcg 06/09/25 09:00 Cyanocobalamin 500 Mcg Tablet PO DAILY EMILY Diclofenac Sodium 2 gm 06/08/25 21:00 06/08/25 21:08 Diclofenac Sodium 1% Gel 50 Gm Tube TOP 2 gm QID EMILY Administration Glycerin 1 supp 06/08/25 19:03 Glycerin Pediatric Supp VT DAILY PRN Constipation Melatonin 3 mg 06/08/25 19:00 06/08/25 21:08 Melatonin 3 Mg Tablet PO 3 mg Q24H EMILY Administration Ondansetron HCl 4 mg 06/08/25 17:21 Ondansetron 4 Mg/2 Ml Vial IVP Q6HR PRN Nausea / Vomiting Rivastigmine 1 each 06/09/25 09:00 Tartrate 1.5 Mg PO Capsule QID EMILY Polyethylene Glycol 17 gm 06/09/25 09:00 Polyethylene Glycol 3350 17 Gm Packet PO DAILY EMILY Quetiapine Fumarate 25 mg 06/08/25 21:00 06/08/25 21:08 Quetiapine 25 Mg Tablet PO 25 mg QPM EMILY Administration Sodium Chloride 10 ml 06/08/25 18:34 Sodium Chloride Flush 0.9% 10 Ml Syringe IVP PRN PRN NEEDED PER PROVIDER ORDERS Sodium Chloride 10 ml 06/09/25 01:00 06/09/25 00:08 Sodium Chloride Flush 0.9% 10 Ml Syringe IVP 10 ml 0100,0900,1700 EMILY Administration Objective Vital Signs/Intake & Output Reviewed Vital Signs: Yes Vital Signs: Vital Signs x48h Temp Pulse Resp BP Pulse Ox 06/09/25 05:27 36.7 C 66 20 124/52 L 95 06/09/25 00:12 127/49 L 06/08/25 23:59 36.5 C 59 L 20 93/38 L 96 Intake & Output: Intake & Output 06/06/25 06/07/25 06/08/25 06/09/25 23:59 23:59 23:59 23:59 Intake Total 120 / 120 Output Total 0 / 0 Balance 120 / 120 0 / 0 Weight (kg) 57.5 kg Objective Comments/Other: GEN: No acute distress. Arouses to voice. Does not respond to questioning. HEENT: NC/AT, normal appearance of external ears and nose. Hearing baseline. Cardiac: Regular rate and rhythm, no murmurs. Euvolemic Pulm: Lungs CTA bilaterally, no cough, no wheezes. No adventitial lung sounds Abdomen: Soft, nontender, nondistended. No rebound or guarding Neuro: Face symmetric, CN II through XII intact grossly. No focal neurologic deficits. Moves all extremities Psych: Oriented to self. Mood euthymic. Affect congruent. Lab Results 06/09/25 06:40 06/09/25 06:40 Other Labs: Lab Results x24hrs 06/09/25 06/08/25 Range/Units 06:40 11:13 WBC 7.0 8.7 (4.8-10.8) x10^3/uL RBC 3.43 L 3.81 L (4.70-6.10) 10^6/uL Hgb 10.3 L 11.6 L (14.0-18.0) g/dL Hct 32.1 L 35.4 L (42.0-52.0) % MCV 93.6 92.9 (80.0-94.0) fL MCH 30.0 30.4 (27.0-31.0) pg MCHC 32.1 32.8 (32.0-36.0) g/dL RDW 13.8 13.8 (12.0-15.0) % Plt Count 146 171 (130-450) 10^3/uL MPV 10.0 10.1 (7.4-11.4) fL Neut # (Auto) 5.1 6.9 H (1.5-6.6) 10^3/uL Lymph # (Auto) 1.0 L 0.9 L (1.5-3.5) 10^3/uL Ziebach # (Auto) 0.7 0.8 (0.0-1.0) 10^3/uL Eos # (Auto) 0.2 0.1 (0.0-0.7) 10^3/uL Baso # (Auto) 0.0 0.0 (0.0-0.1) 10^3/uL Absolute Nucleated RBC 0.00 0.00 x10^3/uL Nucleated RBC % 0.0 0.0 /100WBC Sodium 141 136 (135-145) mmol/L Potassium 3.6 3.6 (3.5-4.5) mmol/L Chloride 110 106 (101-111) mmol/L Carbon Dioxide 23 22 (21-32) mmol/L Anion Gap 8.0 8.0 (6-13) BUN 21 H 22 H (6-20) mg/dL Creatinine 0.8 0.8 (0.6-1.3) mg/dL Estimated GFR (MDRD) 91 91 (>89) Glucose 91 115 H (74-104) mg/dL Calcium 8.5 9.2 (8.5-10.3) mg/dL Total Bilirubin 2.9 H (0.2-1.0) mg/dL AST 22 (10-42) IU/L ALT 4 L (10-60) IU/L Alkaline Phosphatase 126 H (42-121) IU/L Total Protein 6.3 L (6.4-8.9) g/dL Albumin 4.3 (3.2-5.5) g/dL Globulin 2.0 L (2.1-4.2) g/dL Albumin/Globulin Ratio 2.2 (1.0-2.2) Assessment/Plan Problem List (1) Subdural hemorrhage: Impression: Patient presents with multiple ground-level falls as below. He was found on admission to have a left parafalcine subdural hematoma measuring 14 mm. This was stable on repeat 4 hours later. With understanding of the patient's goals of care, and the fact that the [place], neurosurgery was not consulted by the ED. - Continue neurochecks every shift with Every 8 hours vitals - Repeat head CT for any acute focal deficit or hypersomnolence - Neurosurgical intervention is not within patient's goals of care. - Hold pharmacologic anticoagulation - Hold home antiplatelets - Family is contemplating hospice versus ongoing selective care with palliative involvement. (2) Fall: Impression: Has been somnolent here, no recurrent falls since he has been admitted. Bed alarm is on. Recurrent ground-level falls at home in the setting of his Parkinson's disease. He is more forgetful, and getting up without understanding his own deficits. He has ground-level falls injuring his elbows, buttocks, and apparently had head strike as above. Has been admitted to memory care. Fell at memory care. Has also been in assisted living and fell in assisted living. His family feels that he may need 24 hours of monitoring. - Appreciate case management support and helping plan with family. o Consideration for private caregivers. Hospice considered as well. - Bed rails up and bed alarm on. - Management of delirium up as below - Pain management with topicals, Tylenol. Avoiding opiates if able. As needed oxycodone available for breakthrough (3) Parkinson's disease with dyskinesia and fluctuating manifestations: Impression: Has had minimal delirium and has been reoriented here. We have been holding his tremor medications, but the family requests that we continue these. Recall the patient has advanced Parkinson's dementia. Best days at this point in time he will mobilize with a wheelchair and go on "walks". He was playing cards up until about a month prior to admission. 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 He was recently started on quetiapine. He has been on rivastigmine for some time. He has not previously been on Sinemet as well as pramipexole, but not recently. - Continue 4 times daily rivastigmine, family will need to bring in - Continue nightly quetiapine - Will resume Sinemet - Avoid other blood pressure meds (4) Cerebrovascular disease: Impression: Patient with prior history of CVA. He is on clopidogrel and atorvastatin at baseline. - Will continue atorvastatin 80mg - Likely hold antiplatelets indefinitely given his recurrent falls. (5) Constipation: Impression: Resolved with suppository/disimpaction in ED. Patient with evidence constipation including stercoral colitis on his pelvic CT scans. He has a history of constipation as well. He is on mag citrate as well as Lomotil in the outpatient world. Unclear why he is on Lomotil. He had a smear of stool on arrival to the floor. - Discontinue Lomotil indefinitely - Daily MiraLAX - Rectal glycerin and bisacodyl suppositories available I spent a total of 39 minutes in the care of this patient today. This time was spent reviewing labs, vital signs, imaging, interviewing and examining the patient, and discussing plan of care with them and their other care providers. Managing 2 or more chronic conditions. Prescription management as above. [id number] Qualifiers: Constipation type: unspecified constipation type Qualified Code(s): K 59.00 - Constipation, unspecified
[2025-06-09] MEDS: CYANOCOBALAMIN 500 MCG TABLET PO SCH (09:40)
[2025-06-09] MEDS: ATORVASTATIN 40 MG TABLET PO SCH (09:40)
--- NOTE | 2025-06-09 12:51 | ADVANCE CARE PLANNING NOTE ---
Advance Care Planning Planning Encounter Date: 06/09/25 Time: 11:00 Purpose: Progressive decline Parties in Attendance: - Jade, Patient's 3 children and their spouses. Decisional Capacity of the Patient: Nondecisional Diagnosis for Encounter (1) Subdural hemorrhage: (2) Fall: (3) Parkinson's disease with dyskinesia and fluctuating manifestations: (4) Cerebrovascular disease: (5) Constipation: Qualifiers: Constipation type: unspecified constipation type Qualified Code(s): K59.00 - Constipation, unspecified Encounter Subjective/Patient's Story: 89-year-old male with history of Parkinson's dementia that has been advancing over the last year. Family did not talk much about patient's earlier life and upbringing, but were perseverant on his last year of his life. He has had progressive decline over that time. He lives with his at [facility] in the [facility]. She moved into assisted living to be near him. She provides most of his caregiving support. She is tired and cannot provide adequate supervision for the patient. He has been reasonably ambulatory recently. He mainly uses a walker or wheelchair on for ambulation. On a good day he enjoys going for "walks" in his wheelchair. He was playing cards up until about 6 weeks ago. Objective/Medical Story: Patient has had a progressive decline over the last 6 weeks, precipitous on top of chronic decline over the last year. Over the last 2 weeks prior to his admission, he has been falling multiple times per day. His aggressive decline is suggestive of a stroke, and I shared as much with the family. He is unable to engage with a neuroexam to fully be able to assess. Apparently he lacks trunk support enough to hold his upper body up in bed. This quick decline suggests an organic process. He has dysphagia but this been a more chronic process. He had a swallow study in the community which revealed just lissette pharyngeal coordination issues. His parkinsonism has been progressive generally. He recently was started on medicines for increased delirium and hallucinations. He has been started on Risperdal for this. He is also on quetiapine every night for agitation and restlessness. He has been on rivastigmine for years. He follows with neurology at [facility]. Dr. Sy. In the setting of his recent multiple falls, he has multiple soft tissue injuries throughout his upper body including bilateral elbows. No fractures. Most concerningly, he has a 14 mm subdural hematoma. Family is very insistent that he would not want any surgical intervention. Goals of Care: Family do introduce toward hospice and our conversation, but after some question as clear they have not had much experience with hospice and or unfamiliar with that. I did explain to them extensively the difference between hospice, palliative care, and ongoing selective treatments for the patient. The progressive decline of their father is still hard for the children to cope with. They still have a lot of ambiguity around how aggressive they want to be in their treatment with their dad. They agree would not want surgery, would not want CPR and resuscitative efforts. They are more in to give us about whether he would want further treatment with his specialists. I find his interactions with his specialist and not be burdensome. They want him to continue on his Parkinson's medicines. They are hopeful that he will regain some of his vitality had a few weeks ago. Cautioned that he may not and this may be his new normal. Whether he is experiencing postconcussive changes or effects of his subdural hematoma, his fragile brain may not recover from this insult. The family's biggest concern is that he continues to have a safe environment. He has had multiple falls despite being in assisted living, memory care, half-way. He gets up impulsively because of his dementia not realizing his instability on his feet. This causes immediate falls. After extensive discussion, while the patient may be appropriate for hospice, I do not believe the family is yet ready to transition to full comfort measures only approach. Specifically, the family talks about preventing further falls, but bring him back to the hospital if he is to experience another fall. They also wish to consult with their specialist and primary care doctors in the community to see "whether hospice is appropriate for him". Plan: * Case management will continue to support finding appropriate disposition for this patient * Appropriate options are most likely to have private caregivers, likely in a supervised setting versus home. * Will try and prevent falls while here * Cautiously reintroducing some of his home meds at the family's request, trying to balance pill burden, side effect profile, and desired effects. * Family is not ready for hospice yet, but patient remains appropriate * Palliative care should see if patient is still in on Wednesday * Family's clear patient is DNR. Selective interventions. POLST reflects this. Code Status: Do Not Attempt Resuscitation Time spent on advance care plannin
--- NOTE | 2025-06-09 14:55 | PHARMACY PROGRESS NOTE ---
Best Possible Medication History Admit Date and Time: 06/09/25 1401 Home Medications Medication Instructions Recorded Confirmed Type walker 03/23/24 02/28/25 History pramipexole 2.25 mg 2.25 mg PO HS 05/22/2406/09 History tablet,extended release 24 hr (Mirapex ER) rivastigmine tartrate 1.5 mg 3 mg PO BID 05/22/2405/15 History capsule clopidogrel 75 mg tablet 75 mg PO DAILY #90 tabs 08/0806/09/25 Rx cyanocobalamin (vitamin B-12) 500 500 mcg PO DAILY 12/0606/09/25 History mcg tablet quetiapine 25 mg tablet (Seroquel) 25 mg PO HS 06/09/25 History acetaminophen 325 mg tablet 650 mg PO Q4H PRN fever or pain 06/09/25 06/09/25 History (Tylenol) atorvastatin 80 mg tablet (Lipitor) 80 mg PO HS 06/09/25 History carbidopa 25 mg-levodopa 100 mg 1 tab PO QID 06/09/25 06/09/25 History tablet cholecalciferol (vitamin D3) 25 25 mcg PO DAILY 06/09/25 History mcg (1,000 unit) tablet dextromethorphan-guaifenesin 5 20 ml PO Q4HR PRN cough 06/09/25 06/09/25 History mg-50 mg/5 mL oral syrup (Cough Syrup DM) diphenoxylate-atropine 2.5 1 tab PO DAILY PRN diarrhea 06/09/25 06/09/25 History mg-0.025 mg tablet (Lomotil) fluticasone propionate 50 2 spray intranasal DAILY jorge al 06/09/25 06/09/25 History mcg/actuation nasal congestion spray,suspension (Flonase Allergy Relief) magnesium oxide 250 mg PO DAILY 06/09/25 History risperidone 0.25 mg tablet 0.5 mg PO Q4HR PRN hallucin ations 06/09/25 06/09/25 History vibegron 75 mg tablet (Gemtesa) 75 mg PO DAILY 5 06/09/25 History zinc oxide 20 % topical paste 1 ea topical PRN skin ca re 06/09/25 06/09/25 History (Zinctral) Processed by: Pharmacy Medications reviewed in ED?: No Medication History completed: Yes Patient Interview: Pt unable to participate Secondary Source(s): [facility] Statement: As the person ultimately responsible for medication therapy, providers are able to order a medication from an existing home medication list in [facility] via the "Reconcile Routine" prior to Confirmation of that medication by instructional support technician. Such practice is discouraged except when the physician, in their clinical judgment, deems that a medical need exists for a medication without regard to previous use.
[2025-06-09] MEDS: CARBIDOPA/LEVODOPA 25 MG/100 MG TABLET PO SCH (16:27)
[2025-06-10 07:18] LABS: BUN - BLOOD UREA NITROGEN 23.0 mg/dL (6-20); CARBON DIOXIDE - CO2 22.0 mmol/L (21-32); CREATININE 0.9 mg/dL (0.6-1.3); GFR - MDRD 79.0 (>89)
[2025-06-10 07:39] LABS: HCT - HEMATOCRIT 34.9 % (42.0-52.0); HGB - HEMOGLOBIN 11.5 g/dL (14.0-18.0); MEAN PLATELET VOLUME 9.8 fL (7.4-11.4); NRBC ABSOLUTE COUNT (AUTO) 0.00 x10^3/uL; NUCLEATED RED BLOOD CELLS AUTO 0.0 /100WBC; PLT - PLATELET COUNT 184 10^3/uL (130-450); RED CELL DISTRIBUTION WIDTH 13.4 % (12.0-15.0)
[2025-06-10] MEDS: POTASSIUM CHLORIDE 20 MEQ TABLET PO ONE (08:42)
--- NOTE | 2025-06-10 13:07 | PROVIDER PROGRESS NOTE ---
Subjective Prog Note Date Prog Note Date: 06/10/25 Prog Note Time: 13:03 Subjective Subjective: No acute events overnight. No big changes for Mat today. He is sitting up in bed when I see him midday today. About to eat lunch. Despite early reports, he has not been impulsive during this hospitalization. He may not be hallucinating is much as he did previously. He has been off of pramipexole since he has been here. He has no complaints or concerns at this point. Remains medically clear, pending safe dispo plan. Current Medications Current Medications Current Medications: Current Medications Generic Name Dose Route Start Last Admin Trade Name Freq PRN Reason Stop Dose Admin Acetaminophen 650 mg 06/08/25 18:34 Acetaminophen 325 Mg Tablet PO Q4H PRN fever or pain Atorvastatin Calcium 80 mg 06/09/25 09:00 06/10/25 08:42 Atorvastatin 40 Mg Tablet PO 80 mg DAILY EMILY Administration Bisacodyl 10 mg 06/08/25 19:03 Bisacodyl 10 Mg Supp NC DAILY PRN Constipation Carbidopa/Levodopa 1 tab 06/09/25 16:00 06/10/25 08:42 Carbidopa/Levodopa 25 Mg/100 Mg Tablet PO 1 tab 0800,1200,1600,2000 EMILY Administration Cyanocobalamin 500 mcg 06/09/25 09:00 06/10/25 08:42 Cyanocobalamin 500 Mcg Tablet PO 500 mcg DAILY EMILY Administration Diclofenac Sodium 2 gm 06/08/25 21:00 06/10/25 08:43 Diclofenac Sodium 1% Gel 50 Gm Tube TOP 2 gm QID EMILY Administration Glycerin 1 supp 06/08/25 19:03 Glycerin Pediatric Supp NC DAILY PRN Constipation Melatonin 3 mg 06/08/25 19:00 06/09/25 19:23 Melatonin 3 Mg Tablet PO 3 mg Q24H EMILY Administration Ondansetron HCl 4 mg 06/08/25 17:21 Ondansetron 4 Mg/2 Ml Vial IVP Q6HR PRN Nausea / Vomiting Rivastigmine 2 each 06/09/25 16:00 06/10/25 10:24 Tartrate 1.5 Mg PO Not Given Capsule 0900,1600 EMILY Polyethylene Glycol 17 gm 06/09/25 09:00 06/10/25 08:42 Polyethylene Glycol 3350 17 Gm Packet PO 17 gm DAILY EMILY Administration Quetiapine Fumarate 25 mg 06/08/25 21:00 06/09/25 19:23 Quetiapine 25 Mg Tablet PO 25 mg QPM EMILY Administration Risperidone 0.5 mg 06/09/25 18:45 Risperidone 0.25 Mg Tablet PO Q4HR PRN hallucinations, agitation Sodium Chloride 10 ml 06/08/25 18:34 Sodium Chloride Flush 0.9% 10 Ml Syringe IVP PRN PRN NEEDED PER PROVIDER ORDERS Sodium Chloride 10 ml 06/09/25 01:00 06/10/25 08:43 Sodium Chloride Flush 0.9% 10 Ml Syringe IVP 10 ml 0100,0900,1700 EMILY Administration Objective Vital Signs/Intake & Output Reviewed Vital Signs: Yes Vital Signs: Vital Signs x48h Temp Pulse Resp BP Pulse Ox 06/10/25 07:52 36.6 C 76 28 H 157/73 H 94 Intake & Output: Intake & Output 06/07/25 06/08/25 06/09/25 06/10/25 23:59 23:59 23:59 23:59 Intake Total 120 / 120 420 / 420 220 / 220 Output Total 200 / 200 Balance 120 / 120 220 / 220 220 / 220 Weight (kg) 57.5 kg Objective Comments/Other: GEN: No acute distress. Arouses to voice. Weakly phonates. Bruises on all extremities. HEENT: NC/AT, normal appearance of external ears and nose. Hearing baseline. Cardiac: Regular rate and rhythm, no murmurs. Euvolemic Pulm: Lungs CTA bilaterally, no cough, no wheezes. No adventitial lung sounds Abdomen: Soft, nontender, nondistended. No rebound or guarding Neuro: Face symmetric, CN II through XII intact grossly. No focal neurologic deficits. Moves all extremities Psych: Oriented to self. Mood euthymic. Affect congruent. Lab Results 06/10/25 06:53 06/10/25 06:53 Other Labs: Lab Results x24hrs 06/10/25 Range/Units 06:53 WBC 9.1 (4.8-10.8) x10^3/uL RBC 3.76 L (4.70-6.10) 10^6/uL Hgb 11.5 L (14.0-18.0) g/dL Hct 34.9 L (42.0-52.0) % MCV 92.8 (80.0-94.0) fL MCH 30.6 (27.0-31.0) pg MCHC 33.0 (32.0-36.0) g/dL RDW 13.4 (12.0-15.0) % Plt Count 184 (130-450) 10^3/uL MPV 9.8 (7.4-11.4) fL Neut # (Auto) 7.2 H (1.5-6.6) 10^3/uL Lymph # (Auto) 1.0 L (1.5-3.5) 10^3/uL [place] # (Auto) 0.8 (0.0-1.0) 10^3/uL Eos # (Auto) 0.1 (0.0-0.7) 10^3/uL Baso # (Auto) 0.0 (0.0-0.1) 10^3/uL Absolute Nucleated RBC 0.00 x10^3/uL Nucleated RBC % 0.0 /100WBC Sodium 142 (135-145) mmol/L Potassium 3.4 L (3.5-4.5) mmol/L Chloride 111 (101-111) mmol/L Carbon Dioxide 22 (21-32) mmol/L Anion Gap 9.0 (6-13) BUN 23 H (6-20) mg/dL Creatinine 0.9 (0.6-1.3) mg/dL Estimated GFR (MDRD) 79 L (>89) Glucose 99 (74-104) mg/dL Calcium 8.7 (8.5-10.3) mg/dL Assessment/Plan Problem List (1) Subdural hemorrhage: Impression: Neuroexam is been stable. He is waking up more today. Eating as below. Patient presents with multiple ground-level falls as below. He was found on admission to have a left parafalcine subdural hematoma measuring 14 mm. This was stable on repeat 4 hours later. With understanding of the patient's goals of care, and the fact [place] neuro[place] was not consulted by the ED. - Discontinue neurochecks - Repeat head CT for any acute focal deficit or hypersomnolence - Neurosurgical intervention is not within patient's goals of care. - Hold pharmacologic anticoagulation - Hold home antiplatelets - Family most likely remain selective treatment, would benefit from palliative involvement, will consult them 06/11. (2) Fall: Impression: No recurrent falls here. Bed rails up and up. Bed alarm is on. Per nursing, he has not been trying to get out of bed. Recurrent ground-level falls at home in the setting of his Parkinson's disease. He is more forgetful, and getting up without understanding his own deficits. He has ground-level falls injuring his elbows, buttocks, and apparently had head strike as above. Has been admitted to memory care. Fell at memory care. Has also been in assisted living and fell in assisted living. His family feels that he may need 24 hours of monitoring. - After extensive discussion, patient will likely return to a memory care facility with or without additional private caregivers. - Case management assisting with placement - Bed rails up and bed alarm on. - Management of delirium up as below - Pain management with topicals, Tylenol. Avoiding opiates if able. As needed oxycodone available for breakthrough - PT evaluation for discharge planning (3) Parkinson's disease with dyskinesia and fluctuating manifestations: Impression: Has had minimal delirium and has been reoriented here. We have been holding his tremor medications, but the family requests that we continue these. Recall the patient has advanced Parkinson's dementia. Best days at this point in time he will mobilize with a wheelchair and go on "walks". He was playing cards up until about a month prior to admission. 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 He was recently started on quetiapine. He has been on rivastigmine for some time. Also on sinemet and mirapex, but I'm concerned these may be worsening his hallucinations. - Continue 4 times daily rivastigmine, family will need to bring in - Continue nightly quetiapine - Continue MICROSOFT EXCHANGE ADMINISTRATOR sinemet - Avoid other blood pressure meds (4) Difficulty swallowing: Impression: Longstanding history, going back at least a year per the patient's spouse. He has had a video swallow done previously that did not show any structural issues. Suspect his dysphagia is mostly in the setting of his Parkinson's disease. Consideration for thickening his liquids, but with swallow coordination issues, this may be more dangerous. He has been able to cough up any liquids that he aspirates. Family is aware of his chronic dysphagia and would like him to keep eating if able. - LATHER APPRENTICE evaluation ordered - Will continue minced and moist diet with thin liquids (5) Cerebrovascular disease: Impression: Patient with prior history of CVA. He is on clopidogrel and atorvastatin at baseline. - Will continue atorvastatin 80mg - Likely hold antiplatelets indefinitely given his recurrent falls and recent brain bleed (6) Constipation: Impression: Resolved with suppository/disimpaction in ED. Patient with evidence constipation including stercoral colitis on his pelvic CT scans. He has a history of constipation as well. He is on mag citrate as well as Lomotil in the outpatient world. Unclear why he is on Lomotil. He had a smear of stool on arrival to the floor. - Discontinue Lomotil indefinitely - Daily MiraLAX - Rectal glycerin and bisacodyl suppositories available I spent a total of 36 minutes in the care of this patient today. This time was spent reviewing labs, vital signs, imaging, interviewing and examining the patient, and discussing plan of care with them and their other care providers. Managing 2 or more chronic conditions. Prescription management as above. [id number] Qualifiers: Constipation type: unspecified constipation type Qualified Code(s): K 59.00 - Constipation, unspecified
[2025-06-10] MEDS: ACETAMINOPHEN 325 MG TABLET PO PRN (15:51)
[2025-06-10] MEDS: COD LIVER OIL/ZINC OXIDE 113 GM TUBE TOP PRN (21:05)
[2025-06-11 07:05] LABS: HCT - HEMATOCRIT 41.0 % (42.0-52.0); HGB - HEMOGLOBIN 13.3 g/dL (14.0-18.0); MEAN PLATELET VOLUME 9.7 fL (7.4-11.4); NRBC ABSOLUTE COUNT (AUTO) 0.00 x10^3/uL; NUCLEATED RED BLOOD CELLS AUTO 0.0 /100WBC; PLT - PLATELET COUNT 213 10^3/uL (130-450); RED CELL DISTRIBUTION WIDTH 13.3 % (12.0-15.0)
[2025-06-11 07:16] LABS: BUN - BLOOD UREA NITROGEN 28.0 mg/dL (6-20); CARBON DIOXIDE - CO2 20.0 mmol/L (21-32); CREATININE 0.9 mg/dL (0.6-1.3); GFR - MDRD 79.0 (>89)
--- NOTE | 2025-06-11 17:28 | PROVIDER PROGRESS NOTE ---
Subjective Prog Note Date Prog Note Date: 06/11/25 Prog Note Time: 17:28 Subjective Subjective: No acute events overnight. Patient remains stable here. He denies any pain, denies fever or chills. Denies nausea or vomiting. Discussed with case management, family is apparently looking into hiring private caregivers. Anticipate discharge back to [facility] as early as tomorrow. Current Medications Current Medications Current Medications: Current Medications Generic Name Dose Route Start Last Admin Trade Name Freq PRN Reason Stop Dose Admin Acetaminophen 650 mg 06/08/25 18:34 06/10/25 15:51 Acetaminophen 325 Mg Tablet PO 650 mg Q4H PRN Administration fever or pain Atorvastatin Calcium 80 mg 06/09/25 09:00 06/11/25 08:43 Atorvastatin 40 Mg Tablet PO 80 mg DAILY EMILY Administration Bisacodyl 10 mg 06/08/25 19:03 Bisacodyl 10 Mg Supp HI DAILY PRN Constipation Carbidopa/Levodopa 1 tab 06/09/25 16:00 06/11/25 16:53 Carbidopa/Levodopa 25 Mg/100 Mg Tablet PO 1 tab 0800,1200,1600,2000 EMILY Administration Cyanocobalamin 500 mcg 06/09/25 09:00 06/11/25 08:41 Cyanocobalamin 500 Mcg Tablet PO 500 mcg DAILY EMILY Administration Diclofenac Sodium 2 gm 06/08/25 21:00 06/11/25 16:54 Diclofenac Sodium 1% Gel 50 Gm Tube TOP 2 gm QID EMILY Administration Glycerin 1 supp 06/08/25 19:03 Glycerin Pediatric Supp HI DAILY PRN Constipation Melatonin 3 mg 06/08/25 19:00 06/10/25 19:36 Melatonin 3 Mg Tablet PO 3 mg Q24H EMILY Administration Ondansetron HCl 4 mg 06/08/25 17:21 Ondansetron 4 Mg/2 Ml Vial IVP Q6HR PRN Nausea / Vomiting Rivastigmine 2 each 06/09/25 16:00 06/11/25 11:54 Tartrate 1.5 Mg PO Not Given Capsule 0900,1600 EMILY Polyethylene Glycol 17 gm 06/09/25 09:00 06/11/25 07:48 Polyethylene Glycol 3350 17 Gm Packet PO Not Given DAILY EMILY Quetiapine Fumarate 25 mg 06/08/25 21:00 06/10/25 19:36 Quetiapine 25 Mg Tablet PO 25 mg QPM EMILY Administration Risperidone 0.5 mg 06/09/25 18:45 Risperidone 0.25 Mg Tablet PO Q4HR PRN hallucinations, agitation Sodium Chloride 10 ml 06/08/25 18:34 Sodium Chloride Flush 0.9% 10 Ml Syringe IVP PRN PRN NEEDED PER PROVIDER ORDERS Sodium Chloride 10 ml 06/09/25 01:00 06/11/25 16:55 Sodium Chloride Flush 0.9% 10 Ml Syringe IVP 10 ml 0100,0900,1700 EMILY Administration Zinc Oxide 113 gm 06/10/25 20:31 06/11/25 00:14 Cod Liver Oil/Zinc Oxide 113 Gm Tube TOP 1 applic PRN PRN Administration Skin Care Objective Vital Signs/Intake & Output Reviewed Vital Signs: Yes Vital Signs: Vital Signs x48h Temp Pulse Resp BP Pulse Ox 06/10/25 07:52 36.6 C 76 28 H 157/73 H 94 Intake & Output: Intake & Output 06/08/25 06/09/25 06/10/25 06/11/25 23:59 23:59 23:59 23:59 Intake Total 120 / 120 420 / 420 420 / 420 Output Total 200 / 200 Balance 120 / 120 220 / 220 420 / 420 Weight (kg) 57.5 kg Objective Comments/Other: GEN: No acute distress. Arouses to voice. Weakly phonates. Bruises on all extremities. HEENT: NC/AT, normal appearance of external ears and nose. Hearing baseline. Cardiac: Regular rate and rhythm, no murmurs. Euvolemic Pulm: Lungs CTA bilaterally, no cough, no wheezes. No adventitial lung sounds Abdomen: Soft, nontender, nondistended. No rebound or guarding Neuro: Face symmetric, CN II through XII intact grossly. No focal neurologic deficits. Moves all extremities Psych: Oriented to self. Mood euthymic. Affect congruent. Lab Results 06/11/25 06:58 06/11/25 06:58 Other Labs: Lab Results x24hrs 06/11/25 Range/Units 06:58 WBC 6.3 (4.8-10.8) x10^3/uL RBC 4.43 L (4.70-6.10) 10^6/uL Hgb 13.3 L (14.0-18.0) g/dL Hct 41.0 L (42.0-52.0) % MCV 92.6 (80.0-94.0) fL MCH 30.0 (27.0-31.0) pg MCHC 32.4 (32.0-36.0) g/dL RDW 13.3 (12.0-15.0) % Plt Count 213 (130-450) 10^3/uL MPV 9.7 (7.4-11.4) fL Neut # (Auto) 5.0 (1.5-6.6) 10^3/uL Lymph # (Auto) 0.5 L (1.5-3.5) 10^3/uL [place] # (Auto) 0.6 (0.0-1.0) 10^3/uL Eos # (Auto) 0.1 (0.0-0.7) 10^3/uL Baso # (Auto) 0.0 (0.0-0.1) 10^3/uL Absolute Nucleated RBC 0.00 x10^3/uL Nucleated RBC % 0.0 /100WBC Sodium 141 (135-145) mmol/L Potassium 3.7 (3.5-4.5) mmol/L Chloride 110 (101-111) mmol/L Carbon Dioxide 20 L (21-32) mmol/L Anion Gap 11.0 (6-13) BUN 28 H (6-20) mg/dL Creatinine 0.9 (0.6-1.3) mg/dL Estimated GFR (MDRD) 79 L (>89) Glucose 135 H (74-104) mg/dL Calcium 8.9 (8.5-10.3) mg/dL Assessment/Plan Problem List (1) Subdural hemorrhage: Impression: No acute changes in mentation. Continues to do well. Patient presents with multiple ground-level falls as below. He was found on admission to have a left parafalcine subdural hematoma measuring 14 mm. This was stable on repeat 4 hours later. With understanding of the patient's goals of care, and [place], [place] was not consulted by the ED. - Repeat head CT for any acute focal deficit or hypersomnolence - Neurosurgical intervention is not within patient's goals of care. - Hold pharmacologic anticoagulation and home antiplatelets. (2) Fall: Impression: He has not made any efforts to get out of bed here. No recurrent falls. He mobilizes in bed fairly frequently. Recurrent ground-level falls at home in the setting of his Parkinson's disease. He is more forgetful, and getting up without understanding his own deficits. He has ground-level falls injuring his elbows, buttocks, and apparently had head strike as above. Has been admitted to memory care. Fell at memory care. Has also been in assisted living and fell in assisted living. His family feels that he may need 24 hours of monitoring. - After extensive discussion, patient will likely return to a memory care facility with additional private caregivers. - Med ready now for discharge. Plan for as early as 06/12. - Bed rails up and bed alarm on. - Management of delirium up as below - Pain management with topicals, Tylenol. Avoiding opiates if able. As needed oxycodone available for breakthrough (3) Parkinson's disease with dyskinesia and fluctuating manifestations: Impression: Continues to be reorientable. Have been holding his Mirapex, and will recommend holding at discharge. Recall the patient has advanced Parkinson's dementia. Best days at this point in time he will mobilize with a wheelchair and go on "walks". He was playing cards up until about a month prior to admission. 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 He was recently started on quetiapine. He has been on rivastigmine for some time. Also on sinemet and mirapex, but I'm concerned these may be worsening his hallucinations. - Continue 4 times daily rivastigmine, Home med - Continue nightly quetiapine - Continue SENIOR JAVA WEB DEVELOPER sinemet - Avoid other blood pressure meds - Nursing working to community health to avoid agitation (4) Difficulty swallowing: Impression: Remained stable on minced and moist diet. Chokes on thin liquids, but able to cough up. Longstanding history, going back at least a year per the patient's spouse. He has had a video swallow done previously that did not show any structural issues. Suspect his dysphagia is mostly in the setting of his Parkinson's disease. Consideration for thickening his liquids, but with swallow coordination issues, this may be more dangerous. He has been able to cough up any liquids that he aspirates. Family is aware of his chronic dysphagia and would like him to keep eating if able. - PERSONAL PROPERTY ASSESSOR evaluation ordered - Will continue minced and moist diet with thin liquids (5) Cerebrovascular disease: Impression: Patient with prior history of CVA. He is on clopidogrel and atorvastatin at baseline. I do worry that the patient may have had a stroke precipitating his most recent more progressive decline. I described family that it would not necessarily change our management, and MRI would be extremely difficult. He does not have any clear focal deficits, but has limited participation in neuroexam. - Will continue atorvastatin 80mg - Likely hold antiplatelets indefinitely given his recurrent falls and recent brain bleed (6) Constipation: Impression: Remains resolved. Patient with evidence constipation including stercoral colitis on his pelvic CT scans. He has a history of constipation as well. He is on mag citrate as well as Lomotil in the outpatient world. Unclear why he is on Lomotil. Had suppository and disimpaction in the ED. - Discontinue Lomotil indefinitely - Daily MiraLAX - Rectal glycerin and bisacodyl suppositories available I spent a total of 37 minutes in the care of this patient today. This time was spent reviewing labs, vital signs, imaging, interviewing and examining the patient, and discussing plan of care with them and their other care providers. Managing 2 or more chronic conditions. Prescription management as above. [id number] Qualifiers: Constipation type: unspecified constipation type Qualified Code(s): K 59.00 - Constipation, unspecified
[2025-06-12 07:20] LABS: HCT - HEMATOCRIT 40.1 % (42.0-52.0); HGB - HEMOGLOBIN 12.9 g/dL (14.0-18.0); MEAN PLATELET VOLUME 9.5 fL (7.4-11.4); NRBC ABSOLUTE COUNT (AUTO) 0.00 x10^3/uL; NUCLEATED RED BLOOD CELLS AUTO 0.0 /100WBC; PLT - PLATELET COUNT 226 10^3/uL (130-450); RED CELL DISTRIBUTION WIDTH 13.2 % (12.0-15.0)
[2025-06-12 07:32] LABS: BUN - BLOOD UREA NITROGEN 39.0 mg/dL (6-20); CARBON DIOXIDE - CO2 24.0 mmol/L (21-32); CREATININE 1.2 mg/dL (0.6-1.3); GFR - MDRD 57.0 (>89)
--- NOTE | 2025-06-12 15:52 | PROVIDER PROGRESS NOTE ---
Subjective Prog Note Date Prog Note Date: 06/12/25 Prog Note Time: 15:52 Subjective Subjective: No acute events overnight. Patient's status effectively unchanged. He is still very somnolent. Minimally rouses on my exam. Family is apparently vacillating on sending him back to memory care with increased caregiving support. They are reticent to get into increased caregiving support and pending for private caregivers. They are also still fairly ambivalent about enrolling in hospice. They continue to perseverate on him getting better. Current Medications Current Medications Current Medications: Current Medications Generic Name Dose Route Start Last Admin Trade Name Freq PRN Reason Stop Dose Admin Acetaminophen 650 mg 06/08/25 18:34 06/10/25 15:51 Acetaminophen 325 Mg Tablet PO 650 mg Q4H PRN Administration fever or pain Atorvastatin Calcium 80 mg 06/09/25 09:00 06/12/25 10:46 Atorvastatin 40 Mg Tablet PO 80 mg DAILY EMILY Administration Bisacodyl 10 mg 06/08/25 19:03 Bisacodyl 10 Mg Supp MI DAILY PRN Constipation Carbidopa/Levodopa 1 tab 06/09/25 16:00 06/12/25 11:59 Carbidopa/Levodopa 25 Mg/100 Mg Tablet PO 1 tab 0800,1200,1600,2000 EMILY Administration Cyanocobalamin 500 mcg 06/09/25 09:00 06/12/25 10:46 Cyanocobalamin 500 Mcg Tablet PO 500 mcg DAILY EMILY Administration Diclofenac Sodium 2 gm 06/08/25 21:00 06/12/25 13:45 Diclofenac Sodium 1% Gel 50 Gm Tube TOP 2 gm QID EMILY Administration Glycerin 1 supp 06/08/25 19:03 Glycerin Pediatric Supp MI DAILY PRN Constipation Melatonin 3 mg 06/08/25 19:00 06/11/25 19:27 Melatonin 3 Mg Tablet PO 3 mg Q24H EMILY Administration Ondansetron HCl 4 mg 06/08/25 17:21 Ondansetron 4 Mg/2 Ml Vial IVP Q6HR PRN Nausea / Vomiting Rivastigmine 2 each 06/09/25 16:00 06/12/25 10:47 Tartrate 1.5 Mg PO Not Given Capsule 0900,1600 EMILY Polyethylene Glycol 17 gm 06/09/25 09:00 06/12/25 10:47 Polyethylene Glycol 3350 17 Gm Packet PO Not Given DAILY EMILY Quetiapine Fumarate 25 mg 06/08/25 21:00 06/11/25 19:27 Quetiapine 25 Mg Tablet PO 25 mg QPM EMILY Administration Risperidone 0.5 mg 06/09/25 18:45 Risperidone 0.25 Mg Tablet PO Q4HR PRN hallucinations, agitation Sodium Chloride 10 ml 06/08/25 18:34 Sodium Chloride Flush 0.9% 10 Ml Syringe IVP PRN PRN NEEDED PER PROVIDER ORDERS Sodium Chloride 10 ml 06/09/25 01:00 06/12/25 10:47 Sodium Chloride Flush 0.9% 10 Ml Syringe IVP 10 ml 0100,0900,1700 EMILY Administration Zinc Oxide 113 gm 06/10/25 20:31 06/11/25 00:14 Cod Liver Oil/Zinc Oxide 113 Gm Tube TOP 1 applic PRN PRN Administration Skin Care Objective Vital Signs/Intake & Output Reviewed Vital Signs: Yes Vital Signs: Vital Signs x48h Temp Pulse Resp BP Pulse Ox 06/12/25 08:05 36.6 C 87 20 136/70 H 95 Intake & Output: Intake & Output 06/09/25 06/10/25 06/11/25 06/12/25 23:59 23:59 23:59 23:59 Intake Total 420 / 420 420 / 420 Output Total 200 / 200 Balance 220 / 220 420 / 420 Objective Comments/Other: GEN: Tired appearing. Arouses to voice. Weakly phonates. Bruises on all extremities. HEENT: NC/AT, normal appearance of external ears and nose. Hearing baseline. Cardiac: Regular rate and rhythm, no murmurs. Euvolemic Pulm: Lungs CTA bilaterally, no cough, no wheezes. No adventitial lung sounds Abdomen: Soft, nontender, nondistended. No rebound or guarding Neuro: Face symmetric, CN II through XII intact grossly. No focal neurologic deficits. Moves all extremities Psych: Oriented to self. Mood euthymic. Affect congruent. Lab Results 06/12/25 07:13 06/12/25 07:13 Other Labs: Lab Results x24hrs 06/12/25 Range/Units 07:13 WBC 4.8 (4.8-10.8) x10^3/uL RBC 4.31 L (4.70-6.10) 10^6/uL Hgb 12.9 L (14.0-18.0) g/dL Hct 40.1 L (42.0-52.0) % MCV 93.0 (80.0-94.0) fL MCH 29.9 (27.0-31.0) pg MCHC 32.2 (32.0-36.0) g/dL RDW 13.2 (12.0-15.0) % Plt Count 226 (130-450) 10^3/uL MPV 9.5 (7.4-11.4) fL Neut # (Auto) 2.9 (1.5-6.6) 10^3/uL Lymph # (Auto) 0.9 L (1.5-3.5) 10^3/uL [place] # (Auto) 0.8 (0.0-1.0) 10^3/uL Eos # (Auto) 0.1 (0.0-0.7) 10^3/uL Baso # (Auto) 0.0 (0.0-0.1) 10^3/uL Absolute Nucleated RBC 0.00 x10^3/uL Nucleated RBC % 0.0 /100WBC Sodium 145 (135-145) mmol/L Potassium 3.5 (3.5-4.5) mmol/L Chloride 111 (101-111) mmol/L Carbon Dioxide 24 (21-32) mmol/L Anion Gap 10.0 (6-13) BUN 39 H (6-20) mg/dL Creatinine 1.2 (0.6-1.3) mg/dL Estimated GFR (MDRD) 57 L (>89) Glucose 124 H (74-104) mg/dL Calcium 8.9 (8.5-10.3) mg/dL Assessment/Plan Problem List (1) Subdural hemorrhage: Impression: Stable with regard to this SDH. Patient presents with multiple ground-level falls as below. He was found on admission to have a left parafalcine subdural hematoma measuring 14 mm. This was stable on repeat 4 hours later. With understanding of the patient's goals of care, and the fact that [place], neurosurgery was not consulted by the ED. - Repeat head CT for any acute focal deficit or hypersomnolence - Neurosurgical intervention is not within patient's goals of care. - Likely no indication for any further serial imaging. - Hold pharmacologic anticoagulation and home antiplatelets indefinitely. (2) Fall: Impression: He has not made any efforts to get out of bed here. No recurrent falls. He mobilizes in bed fairly frequently. Recurrent ground-level falls at home in the setting of his Parkinson's disease. He is more forgetful, and getting up without understanding his own deficits. He has ground-level falls injuring his elbows, buttocks, and apparently had head strike as above. Has been admitted to memory care. Fell at memory care. Has also been in assisted living and fell in assisted living. His family feels that he may need 24 hours of monitoring. - Lots of [id number] 06/12, but the patient plans to go back to memory care without any additional support at this time - Continues to be hospice appropriate. - Med ready for discharge, plan for 06/13 morning, Transport by BLS - Bed rails up and bed alarm on. - Management of delirium as below - Pain management with topicals, Tylenol. Avoiding opiates if able. As needed oxycodone available for breakthrough (3) Parkinson's disease with dyskinesia and fluctuating manifestations: Impression: Continues to be reorientable. Have been holding his Mirapex, and will recommend holding at discharge. Recall the patient has advanced Parkinson's dementia. Best days at this point in time he will mobilize with a wheelchair and go on "walks". He was playing cards up until about a month prior to admission. 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 He was recently started on quetiapine. He has been on rivastigmine for some time. Also on sinemet and mirapex, but I'm concerned these may be worsening his hallucinations. Family is requested to resume on his Sinemet. - Continue 4 times daily rivastigmine, Home med - Continue off of Mirapex at discharge, this may be helping avoid hallucinations - Continue nightly quetiapine - Continue [employer] sinemet - Avoid other blood pressure meds - Nursing working to [facility] care to avoid agitation (4) Difficulty swallowing: Impression: Remained stable on minced and moist diet. Chokes on thin liquids, but able to cough up. Longstanding history, going back at least a year per the patient's spouse. He has had a video swallow done previously that did not show any structural issues. Suspect his dysphagia is mostly in the setting of his Parkinson's disease. Consideration for thickening his liquids, but with swallow coordination issues, this may be more dangerous. He has been able to cough up any liquids that he aspirates. Family is aware of his chronic dysphagia and would like him to keep eating if able. - [employer]PER[employer] evaluation ordered, but can defer to outpatient management. This is a chronic issue. - Will continue minced and moist diet with thin liquids (5) Cerebrovascular disease: Impression: Patient with prior history of CVA. He is on clopidogrel and atorvastatin at baseline. I do worry that the patient may have had a stroke precipitating his most recent more progressive decline. I described to family that it would not necessarily change our management, and MRI would be extremely difficult. He does not have any clear focal deficits, but has limited participation in neuroexam. - Will continue atorvastatin 80mg - Likely hold antiplatelets indefinitely given his recurrent falls and recent brain bleed (6) Constipation: Impression: Remains resolved. Patient with evidence constipation including stercoral colitis on his pelvic CT scans. He has a history of constipation as well. He is on mag citrate as well as Lomotil in the outpatient world. Unclear why he is on Lomotil. Had suppository and disimpaction in the ED. - Discontinue Lomotil indefinitely - Daily MiraLAX - Rectal glycerin and bisacodyl suppositories available I spent a total of 35 minutes in the care of this patient today. This time was spent reviewing labs, vital signs, imaging, interviewing and examining the patient, and discussing plan of care with them and their other care providers. Managing 2 or more chronic conditions. Prescription management as above. [id number] Qualifiers: Constipation type: unspecified constipation type Qualified Code(s): K 59.00 - Constipation, unspecified
--- NOTE | 2025-06-13 08:32 | Discharge Summary ---
"Discharge Summary Admit Date: 06/08/25 Discharge Date: 06/13/25 Discharging Provider: Eugenio Verdin Primary Care Provider: Ignacia Molina Code Status: Do Not Attempt Resuscitation DIAGNOSES Discharge Diagnoses with Status of Each Condition: ## Subdural hemorrhage, stable Presenting after multiple ground-level falls and found on admission to have a left parafalcine subdural hematoma measuring 14 mm. Stable on repeat imaging 4 hours later. His mentation has not changed significantly since his hospitalization. Patient's goals of care are not in line with surgery, thus was not transferred for surgical evaluation. Likely no indication for any further serial imaging Hold pharmacologic anticoagulation or antiplatelets indefinitely, clopidogrel discontinued. ## Recurrent falls Per the patient's family report, he has been more impulsive over the last few weeks. He gets up suddenly, does not know his limitations. And falls. He has been falling at least daily prior to his hospitalization. He has not redemonstrated that during this hospitalization. 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 He has had progression over the last year, more aggressively over the last month, this is likely exacerbated by frequent falls and head strikes. I cannot discount that he may have had a CVA at some point in this time that is leading to increased weakness and affecting his swallow. Given his progressive neurocognitive disorder, he is appropriate for hospice, and multiple conversations held with family during this hospitalization. Family is not ready to transition fully to comfort measures only. They wish to reserve right to come back to the hospital. We discussed this throughout the hospitalization. They wish to take him back to memory care and are considering hiring private caregivers. His story is concerning for more impulsivity related to hallucinations. He was able to readily discontinue Mirapex during this hospitalization without any significant side effect or withdrawal. He has been less impulsive off of this medicine. - I recommend continuing off of Mirapex at discharge. - Continuing on Sinemet at family's request - Reasonable to continue rivastigmine. - Continue nightly Seroquel and Risperdal - Consider referral for hospice informational visit - Recommend palliative care referral if family is not ready to engage with hospice. ## Dysphagia Patient was noted this hospitalization to have difficulties with thin liquids. In discussion with his spouse, he had a video swallow done within the last year that did not show any structural issues. He has had troubles with swallowing for at least the last year. Progressive over the preceding months. Likely related to his parkinsonism. - Recommend ongoing feedings for comfort - Would avoid feeding tube placement as this does not meaningfully change outcomes in this demographic - Would avoid thickened liquids as these will be harder to clear if he does aspirate ## Cerebrovascular disease: Prior history of CVA. He is on clopidogrel and atorvastatin prior to this hospitalization. No clear evidence of new infarct. Small enough stroke may not have appeared on neuro axial imaging that was obtained during this hospitalization which only included a Noncon head CT. MRI would not significantly change his patient's management. He is unable to participate with therapy. - Continue atorvastatin 80 mg - Hold antiplatelets indefinitely as above. ## Constipation: Evidence of constipation including stercoral colitis on his pelvic CT scans in the ED. He received decompression there and has had bowel movement since then. Just given his clinical history, I think diarrhea is unlikely in this patient. He is more likely to have overflow diarrhea in the setting of profound constipation. - Would discontinue FABRICATION MIG WELDER as needed Lomotil - Received MiraLAX here without issue. HPI History of Present Illness: This an 89-year-old gentleman resides in memory care at baseline due to Parkinson's dementia who presents after multiple ground-level falls and is found to have a subdural hematoma on CT of his head. This was stable on repeat imaging, without any advancement. His reports that he has been having nearly daily falls over the last 2 weeks. Falling more frequently. Unclear etiology of his increased falls. Most recently he has injured both of his elbows. He also reports buttock pain. In the ED, he was found to have a subdural hematoma on his CT. He is also found to have some soft tissue injuries as well as fecal impaction on his scans incidentally. The ED provider repeated his CT head after 4 hours without any change in size. The patient's and his POA was very adamant that she would not want to transfer out for any further procedure. No neurosurgery consult was made. Discussed with ED provider, will admit the patient to observation status for further neuromonitoring overnight as well as PT evaluation which may be limited due to the holiday week. We may have to have him ambulate with nursing and make an assessment. Patient is DNR/selective treatment. POLST on file. His surrogate decision maker is his Jade. No formal POA paperwork. CONSULTS | PROCEDURES Procedures: CT head 06/[address] pelvis 06/08 CT chest 06/[address] 06/08 Elbow x-ray 06/[address] 06/08 HOSPITAL COURSE Hospital Course: Patient with history of advancing Parkinson's dementia who came in after multiple ground-level falls, had a subdural hematoma noted on trauma workup that was 14 mm. Stable on repeat 4 hours later. His neurologic exam did not significantly change during this hospitalization. Social work very involved in this hospitalization trying to find a suitable and safe discharge plan for this person. Advance care planning held during this hospitalization, and family is not yet ready for hospice. They want to continue to bring him back to the hospital for any care needs. That being said, they are extremely limited with regard to interventions desired. They do not feel like surgery is within the patient's best interest. I would agree with them. I do believe that this gentleman is in the last 6 months of his life. We discussed etiology of patient's falls. His advancement of his dementia. He has had more hallucinations that are leading to impulsivity and falls with low understanding of his limitations. I have discontinued Mirapex with the hope of reducing his hallucinations. He has not had significant withdrawal symptoms from this. He has not really demonstrated impulsivity and hallucinations during this hospitalization to the degree that were described. He has had no falls since admitted. Family wants to take him back to [facility] with memory care and continue their previous plan of care. Recommended keeping his bed in the lowest setting possible. They are considering hiring private caregivers so he can have 24/7 supervision. Only other medication change was discontinuation of clopidogrel in the setting of his SDH. They wish to continue on Sinemet. They will follow-up with his neurologist and seek his input. They specifically want neurology input regarding EOL care. Patient was seen evaluated on day of discharge. He is comfortable. He is waking from sleep when I evaluate him. He denies any localizing pain. Denies any significant anxiety, depression, or fatigue. He is medically stable for discharge. I would recommend at least send information visit from hospice so that the family can better understand the benefits that hospice may provide during Mat's upcoming months ALLERGIES Allergies Allergy/AdvReac Type Severity Reaction Status Date / Time milk Allergy Unknown Unknown Verified 06/08/25 09:30 montelukast Allergy Unknown Unknown Verified 06/08/25 09:30 adhesive Allergy Rash Verified 06/08/25 09:30 MEDICATIONS Ambulatory Orders Medication Instructions Recorded Confirmed walker 03/23/24 02/28/25 rivastigmine tartrate 1.5 mg 3 mg PO BID 05/22/2405/15 capsule cyanocobalamin (vitamin B-12) 500 500 mcg PO DAILY 12/0606/09/25 mcg tablet quetiapine 25 mg tablet (Seroquel) 25 mg PO HS 5 06/09/25 acetaminophen 325 mg tablet 650 mg PO Q4H PRN fever or pain 06/09/25 06/09/25 (Tylenol) atorvastatin 80 mg tablet (Lipitor) 80 mg PO HS 06/09/25 carbidopa 25 mg-levodopa 100 mg 1 tab PO QID 06/09/25 06/09/25 tablet cholecalciferol (vitamin D3) 25 25 mcg PO DAILY 06/09/25 mcg (1,000 unit) tablet dextromethorphan-guaifenesin 5 20 ml PO Q4HR PRN cough 06/09/25 06/09/25 mg-50 mg/5 mL oral syrup (Cough Syrup DM) fluticasone propionate 50 2 spray intranasal DAILY jorge al 06/09/25 06/09/25 mcg/actuation nasal congestion spray,suspension (Flonase Allergy Relief) magnesium oxide 250 mg PO DAILY 06/09/25 risperidone 0.25 mg tablet 0.5 mg PO Q4HR PRN hallucin ations 06/09/25 06/09/25 vibegron 75 mg tablet (Gemtesa) 75 mg PO DAILY 5 06/09/25 zinc oxide 20 % topical paste 1 ea topical PRN skin ca re 06/09/25 06/09/25 (Zinctral) melatonin 3 mg tablet 3 mg PO Q24H #0 tabs 5 LABS 06/12/25 07:13 06/12/25 07:13 DIAGNOSTIC IMAGING Diagnostic Imaging Results Comments: CT head 06/08 Acute left parafalcine subdural hematoma measuring 14 mm without significant mass effect or midline shift. Chronic right parietal infarct. Stable size of acute left parafalcine subdural hematoma on 4-hour repeat. CT C-spine 06/08 No acute displaced fracture or traumatic subluxation Relatively mild cervical spondylolysis Interval increase in reversal of normal cervical lordosis. Elbow x-ray 06/08 Soft tissue swelling which could represent olecranon bursitis CT L-spine 06/08 Chronic marked T12 compression with posterior retropulsion of superior endplate resulting in moderate canal stenosis No acute compression fractures CT chest 06/08 Bibasal bronchial wall thickening and bronchiectasis No acute pulmonary infiltrates Chronic marked compression of T12 with bony retropulsion and moderate canal stenosis at T11-T12 Interval mild inferior endplate compression of T8 with uncertain chronicity potential acute or subacute Severe coronary artery calcifications CT pelvis 06/08 No acute bony abnormality There is a degree of canal stenosis at L3-L4 and L4-L5 Moderate rectal fecal impaction with associated stercoral colitis FOLLOW UP Follow Up: Follow-up with PCP in 1 to 2 weeks Consider follow-up with neurology if patient's desire Recommend referral to palliative care versus hospice consult TIME SPENT Time Spent in Discharge (Minutes): 38 Discharge Plan Discharge Patient Disposition: PENITENTIARY, Self Care Condition: Stable Medically Cleared Date:: 06/13/25 Prescriptions: New melatonin 3 mg Tablet 3 mg PO Q24H Qty: 0 0RF Continued rivastigmine tartrate 1.5 mg capsule 3 mg PO BID Rx Instructions: 0900,1600 magnesium oxide 250 mg magnesium tablet 250 mg PO DAILY Cough Syrup DM 5-50 mg/5 mL syrup 20 ml PO Q4HR PRN (Reason: cough) risperidone 0.25 mg tablet 0.5 mg PO Q4HR PRN (Reason: hallucinations) Zinctral 20 % paste 1 ea topical PRN Rx Instructions: red areas, skin care atorvastatin [Lipitor] 80 mg tablet 80 mg PO HS acetaminophen [Tylenol] 325 mg tablet 650 mg PO Q4H PRN (Reason: fever or pain) carbidopa-levodopa 25-100 mg tablet 1 tab PO QID Rx Instructions: 0800, 1200, 1600, 2000 fluticasone propionate [Flonase Allergy Relief] 50 mcg/actuation spray,suspension 2 spray intranasal DAILY Rx Instructions: administer into each nostril cholecalciferol (vitamin D3) 25 MCG tablet 25 mcg PO DAILY Gemtesa 75 mg tablet 75 mg PO DAILY Rx Instructions: Take 1 tab every day to improve urinary frequency quetiapine [Seroquel] 25 mg tablet 25 mg PO HS cyanocobalamin (vitamin B-12) 500 mcg tablet 500 mcg PO DAILY (DME) walker Misc See Rx Instructions .Route Rx Instructions: Four wheel walker - multiple falls using current non wheeled walker. DX code M25.862 Left knee weakness, M25.861 Right knee weakness Discontinued clopidogrel 75 mg tablet 75 mg PO DAILY Qty: 90 3RF pramipexole [Mirapex ER] 2.25 mg tablet extended release 24 hr 2.25 mg PO HS diphenoxylate-atropine [Lomotil] 2.5-0.025 mg tablet 1 tab PO DAILY PRN (Reason: diarrhea) Rx Instructions: Caution, can cause constipation. If so stop med and only restart with diarrhea. Activity Restrictions: No Restrictions Diet: Regular Health Concerns: You were admitted to the hospital after you had multiple ground-level falls at home, 1 of which has resulted in a subdural hemorrhage. The cause of yourincreased falls over the preceding weeks is not known, but may be related to either advancement of your Parkinson's, medication side effects, or stroke. It does sound like your disease has been advancing relatively rapidly over the last year. I do think you should continue to consider whether engaging in hospice services is appropriate. I have stopped your pramipexole, which is one of your Parkinson's medicines. A major side effect of this medicine is hallucinations. You have not had significant hallucinations since being here. Cannot discount that stopping this medication may help with reducing impulsivity and falls moving forward. The nursing staff here has said that he have not been getting out of bed with the same degree of impulsivity that has been reported prior to hospitalization. Advanced dementia is a terminal illness. Common complications include eating problems, infections (particularly pneumonia), and fever. The patient may experience pain, difficulty breathing, or agitation, all of which should be treated to maintain comfort. Hospice would be appropriate to manage some of the symptoms. At this time, you are going back to memory care for ongoing care. Given your recent brain bleed, you are not being continued on your antiplatelet agent, clopidogrel. Restarting this agent can increase your risk of worsening brain bleed. Symptom Management: Pain: May be difficult to recognize in advanced dementia. Monitor for behavioral changes, facial grimacing, or agitation that may indicate pain. Use dementia- specific pain assessment tools and treat pain appropriately. Agitation: Best managed with non-pharmacologic approaches such as music, familiar activities, and environmental modifications. Avoid antipsychotic medications when possible due to increased risk of . Continue to maintain normal sleep-wake cycles, melatonin is appropriate at night. Eating problems: Common in advanced dementia. Focus on comfort feeding; tube feeding is not recommended as it does not improve outcomes. Specifically, patients with advanced dementia at the same rate or quicker after feeding tubes are placed. Recommended Care Approach: - Maintain a calm, familiar environment - Provide assistance with all activities of daily living - Monitor for signs of discomfort or distress - Avoid hospitalizations when possible, as they often cause distress without improving outcomes (JUNIOR Simmons 2015) - Again as above, I would consider hospice enrollment and at least having a conversation with hospice regarding information Follow-Up: - Continue with established primary care physician and neurologist - Contact physician for new symptoms causing distress or concerns Print Language: Czech Patient Instructions: Pramipexole Stand Alone Forms: SBIRT Follow-up Care: Ignacia Molina MD [Primary Care Provider, Family Practice] Vitals documented within 30 minutes of discharge?: Yes"
[2025-06-13 11:12] VITALS: BP 131/62; TEMP 97.7; O2SAT 97
== END 2025-06-13 09:30 | disposition home or self-care (01) | DRG 83 ==
LOC: MS2 11:00 → ED 11:00 → MS2 18:20
PROVIDERS: ADMIT Student in an Organized Health Care Education/Training Program; ATTEND Student in an Organized Health Care Education/Training Program
DX: Y92.099 Unspecified place in other non-institutional residence as the place of occurrence of the external cause; G20.B2 Parkinson's disease with dyskinesia, with fluctuations; F02.82 Dementia in other diseases classified elsewhere, unspecified severity, with psychotic disturbance; S59.902A Unspecified injury of left elbow, initial encounter; Z91.81 History of falling; K52.89 Other specified noninfective gastroenteritis and colitis; Z79.02 Long term (current) use of antithrombotics/antiplatelets; R13.10 Dysphagia, unspecified; Z66 Do not resuscitate; S06.5XAA Traumatic subdural hemorrhage with loss of consciousness status unknown, initial encounter; Y92.199 Unspecified place in other specified residential institution as the place of occurrence of the external cause; R29.6 Repeated falls; Z86.73 Personal history of transient ischemic attack (TIA), and cerebral infarction without residual deficits; W19.XXXA Unspecified fall, initial encounter; Z99.3 Dependence on wheelchair; R45.1 Restlessness and agitation; S59.901A Unspecified injury of right elbow, initial encounter; K59.00 Constipation, unspecified; R40.0 Somnolence; M53.3 Sacrococcygeal disorders, not elsewhere classified; R26.89 Other abnormalities of gait and mobility